=== PATIENT | male | born 1940 | race Caucasian/White ===

== ENCOUNTER 2020-12-01 08:20 | Inpatient (IN) ==
--- NOTE | 2020-11-15 16:14 | PAT Medication Instructions ---
Medication Instructions Date of Service November 15, 2020 Home Medications acetaminophen 500 mg capsule 500 - 1,000 mg PO BID aspirin 81 mg tablet,delayed release 81 mg PO QAM cetirizine 10 mg tablet (Zyrtec) 10 mg PO QAM cyanocobalamin (vitamin B-12) 2,000 mcg tablet 2,000 mcg PO QAM linagliptin 5 mg tablet (Tradjenta) 5 mg PO QAM metformin 500 mg tablet 500 mg PO BID multivitamin 1 tab PO QAM tramadol 50 mg tablet 50 mg PO BID PRN DO NOT take the morning of surgery cetirizine 10 mg tablet (Zyrtec) 10 mg PO QAM cyanocobalamin (vitamin B-12) 2,000 mcg tablet 2,000 mcg PO QAM linagliptin 5 mg tablet (Tradjenta) 5 mg PO QAM metformin 500 mg tablet 500 mg PO BID multivitamin 1 tab PO QAM Take morning of surgery With a small sip of water, OTHERWISE NOTHING TO EAT OR DRINK AFTER MIDNIGHT: acetaminophen 500 mg capsule 500 - 1,000 mg PO BID (okay to take up to 4 hours prior to surgery if needed) aspirin 81 mg tablet,delayed release 81 mg PO QAM tramadol 50 mg tablet 50 mg PO BID PRN (okay to take up to 4 hours prior to surgery if needed) Take evening before surgery acetaminophen 500 mg capsule 500 - 1,000 mg PO BID metformin 500 mg tablet 500 mg PO BID tramadol 50 mg tablet 50 mg PO BID PRN (if needed) Other Notes If you have any questions please call us at [phone] or [phone] or [phone] or [phone]
--- NOTE | 2020-11-17 12:10 | Anesthesiology Consultation ---
Date of Service November 17, 2020 Assessment & Plan (1) Encounter for pre-operative examination: Chart Review Chart Review: Acceptable Risk for Surgery (pending surgeon ordered PCP clearance (with response to creat and K), surgeon ordered cardio clearance and preop Covid testing results ) and Patient seen in Pre Admission Testing Awaiting surgeon ordered PCP clearance scheduled 11/28 (did send note to PCP regarding elevated K and creat) and awaiting surgeon ordered cardio clearance (will attempt to get more information/imaging on patient's aneurysms - Check BSG AM DOS Per PAT appt on 11/17/20, patient denies any recent travel or large group activities. No known Covid positive contacts or Covid related symptoms. No known Covid infection in the past 90 days. Pt is vaccinated for Covid. Preop Covid ha ting scheduled 11/29/20= will await results. Educated on importance of self quarantining, social distancing and wearing mask in public for the patient one week prior to surgery and after Covid testing done Teaching & Discussion Pre-Anesthesia Teaching/Discussion Notes: Instructed NPO after midnight before surgery,except medications with 15 cc of water. Medication instructions provided according to the PAT guidelines. History Surgery Operation Date: 12/01/20 07:45 Proposed Procedures p L2-L5 Posterior Fusion, Spinal Cord Monitoring - Bismark Castro, Height/Weight Height: 5 ft 9 in Weight: 87.7 kg Allergies Allergy/AdvReac Type Severity Reaction Status Date / Time No Known Allergies Allergy Verified 11/08/20 08:48 Medications Home Medications Medication Instructions Recorded Confirmed Last Taken acetaminophen 500 mg capsule 500 - 1,000 mg PO BID 11/08/20 11/08/20 Unknown aspirin 81 mg tablet,delayed 81 mg PO QAM 11/08/20 11/08/20 Unknown release cetirizine 10 mg tablet (Zyrtec) 10 mg PO QAM 11/08/20 11/08/20 Unknown cyanocobalamin (vitamin B-12) 2,000 mcg PO QAM 11/08/20 11/08/20 Unknown 2,000 mcg tablet linagliptin 5 mg tablet (Tradjenta) 5 mg PO QAM 11/08/20 11/08/20 Unknown metformin 500 mg tablet 500 mg PO BID 11/08/20 11/08/20 Unknown multivitamin 1 tab PO QAM 11/08/20 11/08/20 Unknown tramadol 50 mg tablet 50 mg PO BID PRN 11/08/20 11/08/20 Unknown Past Medical History Medical History Aneurysm "3 ANEURYSMS"- F/U DR HOSSEIN LEW ANNUALLY-NO CHANGES-PT NOT SURE AWARE OF LOCATIONS Chronic back pain Diabetes mellitus, type 2 Glucose stable Kidney stones HX Sleep apnea "SLEEPS SITTING UP"-DUE TO BACK ISSUES-QUIT USING HIS CPAP YRS AGO Exercise / Class Metabolic Activity II 4-5 Yardwork/Stairs/Walk up hill (one flight of stairs - no chest pain or SOB ) Past Family History Family History Brother Family history of diabetes mellitus Brother Family history of diabetes mellitus Mother Family hx of colon cancer Past Surgical History Surgical History History of colonoscopy History of cystoscopy WITH STENT FOR STONES History of total hip arthroplasty R/L Pilonidal cyst REMOVAL OF Past Anesthesia History No Hx of Anesthesia Complications and No Family Hx of Anesthesia Complications History of PONV No Hx of PONV and No Hx of Motion Sickness Social History Smoking Status: Never smoker Do You Dip or Chew Tobacco: No Hx Alcohol Use: No Hx Substance Use: No Review of Systems Patient denies chest pain, shortness of breath, dyspnea on exertion, reflux, cough, wheezing, palpitations. No hx of seizures, stroke, VA. No hx of blood clots or blood transfusions Physical Exam Vital Signs VITALS BP 136/77 P 65 TEMP 97.9 SP02 97% RESP 16 Constitutional no acute distress ENMT Mouth: no TMJ clicking Thyromental Distance: > or= 3.5 Finger Breadths (4.0) Mallampati Class: I Mouth / Teeth: 1. Missing molar Missing molars on top and bottom Crowns Neck neck extension not limited Respiratory normal respiratory effort; no respiratory distress Auscultation: lungs clear to auscultation bilaterally; no wheezes Cardiovascular Rate/Rhythm: regular rate and regular rhythm Heart Sounds: no murmur Vessels: no carotid bruit Musculoskeletal Spine: no pain with cervical ROM Extremities: extremities normal to inspection Psychiatric Orientation: alert Lab Results Anesthesia Preop Results Results Anesthesia Widget: WBC 4.18 K/uL (4.8-10.8) L 11/17/20 Hgb 13.5 g/dL (14.0-18.0) L 11/17/20 Hct 39.5 % (42-52) L 11/17/20 Plt 140 K/uL (130-400) 11/17/20 Na 137 mmol/L (136-145) 11/17/20 K 5.4 mmol/L (3.5-5.1) H 11/17/20 Cl 107 mmol/L (98-107) 11/17/20 CO2 26 mmol/L (21-32) 11/17/20 BUN 18 mg/dl (7-18) 11/17/20 Creat 1.56 mg/dl (0.6-1.4) H 11/17/20 Glucose Level 236 mg/dl (70-99) H 11/17/20 PT 10.9 Seconds (9.0-12.0) 11/17/20 PTT 28.3 Seconds (21.0-31.0) 11/17/20 INR 1.1 (0.9-1.1) 11/17/20 HA1c 8.0 % (4.5-5.6) H 11/17/20 Urine Color Yellow 11/17/20 Urine Appearance Clear (Clear) 11/17/20 Urine pH 5.0 (4.5-7.5) 11/17/20 Urine Specific [place] 1.021 (1.000-1.030) 11/17/20 Urine Protein Negative (Negative) 11/17/20 Urine Glucose (UA) 2+ (Negative) H 11/17/20 Urine Ketones Negative (Negative) 11/17/20 Urine Blood Negative (Negative) 11/17/20 Urine Nitrite Negative (Negative) 11/17/20 Urine Bilirubin Negative (Negative) 11/17/20 Urine Urobilinogen Negative (Negative) 11/17/20 Urine Leukocyte Esterase Negative (Negative) 11/17/20 Blood Type A Positive 11/17/20 Antibody Screen NEGATIVE 11/17/20 Lab Comments: Surgeon's office informed of elevated BSG and Hgb A1C Did write note to PCP regarding hyperkalemia and increased creatine Testing Electrocardiogram Date: 11/17/20 Sinus bradycardia with first-degree AV block with occasional PVCs at 59 bpm. Low voltage QRS Chest X-Ray Date: 11/17/20 Findings: + NAD
--- NOTE | 2020-11-29 16:09 | History & Physical Report ---
Date of Service November 29, 2020 Assessment & Plan (1) Neurogenic claudication due to lumbar spinal stenosis: Plan: Assessment lumbar spinal stenosis with spondylolisthesis and neurogenic claudication with progressive neuro deficit. Plan at this time patient exhibits severe lumbar spinal stenosis and instability. He is noting progressive deterioration in his ability to stand and ambulate with motor deficit. Subsequently we are recommending an urgent lumbar decompression and fusion L2-L5 to avoid permanent nerve damage. History of Present Illness Chief Complaint: Back pain with bilateral leg pain and weakness Primary Care Provider: Allen Mcrae This is a very pleasant 80-year-old male that a year ago was walking 5 miles a day and now is unable to walk down his driveway. He notes significant pain rating into the bilateral buttocks extending down his legs. Is associated with weakness and he must sit to obtain any relief. He has failed Stents of course of nonoperative care. Allergies Allergy/AdvReac Type Severity Reaction Status Date / Time No Known Allergies Allergy Verified 11/08/20 08:48 Home Medications Medication Instructions Recorded Confirmed Type acetaminophen 500 mg capsule 500 - 1,000 mg PO BID 11/08/20 11/08/20 History aspirin 81 mg tablet,delayed 81 mg PO QAM 11/08/20 11/08/20 History release cetirizine 10 mg tablet (Zyrtec) 10 mg PO QAM 11/08/20 11/08/20 History cyanocobalamin (vitamin B-12) 2,000 mcg PO QAM 11/08/20 11/08/20 History 2,000 mcg tablet linagliptin 5 mg tablet (Tradjenta) 5 mg PO QAM 11/08/20 11/08/20 History metformin 500 mg tablet 500 mg PO BID 11/08/20 11/08/20 History multivitamin 1 tab PO QAM 11/08/20 11/08/20 History tramadol 50 mg tablet 50 mg PO BID PRN 11/08/20 11/08/20 History Past Med/Surg History Medical History (Updated 11/29/20 @ 16:08 by Bismark Castro DO) Aneurysm "3 ANEURYSMS"- F/U DR HOSSEIN LEW ANNUALLY-NO CHANGES-PT NOT SURE AWARE OF LOCATIONS Per cardo records "AAA, 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" Chronic back pain Diabetes mellitus, type 2 Glucose stable Kidney stones HX Sleep apnea "SLEEPS SITTING UP"-DUE TO BACK ISSUES-QUIT USING HIS CPAP YRS AGO Surgical History History of colonoscopy History of cystoscopy WITH STENT FOR STONES History of total hip arthroplasty R/L Pilonidal cyst REMOVAL OF Family History Brother Family history of diabetes mellitus Brother Family history of diabetes mellitus Mother Family hx of colon cancer Social History (Updated 11/08/20 @ 09:13 by Zora Montes RN) Smoking Status: Never smoker Second Hand Exposure: Yes (PARENTS SMOKED); Hx Alcohol Use: No Hx Substance Use: No Preferred Language: Serbian Communication Ability: Effective Detector Car Operator Required: No Beliefs That Will Affect Care: None Current Living Situation: Spouse current occupational status: other 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 He must sit to obtain relief in his avoid the sensation of his legs giving way. He exhibits a 4+/5 bilateral quadriceps and dorsiflexion. Sensory is diminished bilateral extremities. Deep tendon reflexes absent.
[~2020-12-01 08:20] MED LIST: ACETAMINOPHEN 500 MG TAB PO SCH; CeleBREX 200 MG CAP PO SCH; GABAPENTIN 300 MG CAP PO SCH; LR 15ML/HR IV SCH; ceFAZolin 2000MG 2,000 MG/15 ML SYR IV SCH
[2020-12-01] MEDS ORDERED: LIDOCAINE 2% 2 ML VIAL/AMP(20MG/ML) INFIL ONE (08:24)
[2020-12-01] MEDS ORDERED: ONDANSETRON INJ 2 MG/ML 2 ML VIAL ONE (08:24)
[2020-12-01] MEDS ORDERED: PROPOFOL IV EMULSION 10 MG/ML 20 ML VIAL IV ONE (08:24)
[2020-12-01] MEDS ORDERED: NEOSTIGMINE METHYLSULFATE 1 MG/ML 10ML VIAL ONE (08:24)
[2020-12-01] MEDS ORDERED: MIDAZOLAM HCL 1 MG/ML 2ML VIAL ONE (08:24)
[2020-12-01] MEDS ORDERED: GLYCOPYRROLATE 0.2 MG/ML VIAL ONE (08:24)
[2020-12-01] MEDS ORDERED: fentaNYL citrate 100 MCG/2 ML VIAL ONE (08:24)
[2020-12-01] MEDS ORDERED: DEXAMETHASONE SOD INJ 4 MG/ML VIAL ONE (08:24)
--- NOTE | 2020-12-01 09:22 | History & Physical Bridge Note ---
Date of Service December 01, 2020 History & Physical Bridge Note I have examined the patient, reviewed the History & Physical and in the interval since the performance of the History & Physical I have noted the following changes of clinical significance: no changes noted
[2020-12-01 09:26] LABS: BUN Creatinine Ratio 10.1 (10-20); Creatinine Clr Calc Pharmacy 43.1 ml/min; Est GFR (African American) 51.6 ml/min; Est GFR (Non-African American) 44.5 ml/min; Potassium 4.1 mmol/L (3.5-5.1)
[2020-12-01] MEDS ORDERED: EPINEPHrine INJ 1 MG/ML AMP ONE (09:50)
[2020-12-01] MEDS ORDERED: BUPIVACAINE 0.5 % 5 MG/1 ML MPF 30ML VIAL ONE (09:51)
[2020-12-01] MEDS ORDERED: ATROPINE SULFATE 0.1 MG/ML 10ML SYR IV PRN (09:55)
[2020-12-01] MEDS ORDERED: HYDROmorphone INJ 1 MG/ML SYRINGE IV PRN ×2 (09:55→14:41)
[2020-12-01] MEDS ORDERED: ePHEDrine sulfate 50 MG/ML AMP IV PRN (09:55)
[2020-12-01] MEDS ORDERED: ONDANSETRON INJ 2 MG/ML 2 ML VIAL IV PRN ×2 (09:55→14:41)
[2020-12-01] MEDS ORDERED: fentaNYL citrate 100 MCG/2 ML VIAL IV PRN (09:55)
[2020-12-01] MEDS ORDERED: HYDROmorphone INJ 2 MG/ML SYR/VIAL ONE (10:29)
[2020-12-01] MEDS ORDERED: FLOSEAL HEMOSTATIC MATRIX 10ML TOP ONE (11:09)
--- NOTE | 2020-12-01 13:04 | Operative Report ---
Post Operative Report Pre & Post Diagnosis Operation Date: 12/01/20 09:55 Pre-Op Diagnosis: Spinal Stenosis, Lumbar Region with Neurogenic Claudication Post-Op Diagnosis: Spinal Stenosis, Lumbar Region with Neurogenic Claudication I identified the patient and participated in the time-out.: Yes Procedure Operation Date: 12/01/20 09:55 Actual Procedures #1 lumbar decompression with bilateral medial facetectomies and foraminotomies L1-2, L2-3, L3-4 and L4-5. #2 posterior spinal fusion L2-3, L3-4 and L4-5. #3 placement of posterior segmental instrumentation L2-L5. #4 interbody fusion L3- 4 and L4-5. #5 placement peek cage 12 x 26 mm at L3-L4 and 13 x 26 mm L4-5 per #6 placement locally harvested morselized autograft in the posterior gutters. #7 placement infuse collagen sponge, master graft in the posterior lateral gutters and I factor in the interbody space. Surgeon Bismark Castro, Oil Pumper Lester Machuca Estimated Blood Loss 250 Findings Consistent with Post-Op Diagnosis Specimens None Indications This is an 80 male who presents with severe spinal stenosis and marked inability to ambulate. Failing course of nonoperative care is here for surgical invention. Description of Procedure Patient was met with identified informed consent obtained. Patient was then taken to the operative suite underwent a patient placed in a prone position the Luis table Concepcion frame. All bony prominences well-padded eyes inspected to ensure no external proximal spine. This point lumbar spine was prepped and draped in a sterile fashion. Sharp dissection with the assistance of Bovie cautery performed down to and exposing the lamina and transverse processes of L3-L3 L4-L5 bilaterally. From caudal to cephalad fashion complete laminectomy of L4 L3 L2 and partial laminectomy L1 was performed including bilateral medial facetectomies and foraminotomies addressing severe spinal stenosis. Pedicle screws were then placed in L2 L3-L4-L5 bilaterally with assistance of fluoroscopy and the proper sized clint placed. By way of a transfemoral approach on the right complete discectomy of L4-5 was performed endplates curetted to subcortically bone and a 12 x 26 mm peek cage filled with I factor tapped in position. Then proceeded to L3-L4 and again by way of a transforaminal portion right a complete discectomy was performed endplates curetted to subcortically bone and a 11 x 26 mm peek cage filled I factor tapped in position. The rods were then locked in final position bilaterally. The transverse processes of L 2 L3-L4-L5 5 burred to subcortically bone. Infuse collagen sponge master graft local autograft was placed in the posterior gutters. 15 round WILDA drain inserted. The incision was then closed with 1 Vicryl to fascia 2-0 Vicryl subcutaneously and 4 Monocryl for final skin closure. Steri-Strip sterile dressings placed. Patient awakened taken back in stable condition. Please note spinal cord monitoring to assess the procedure no changes noted. Lastly Lester Machuca was present throughout the entire procedure and all the patient positioning complex portions of the procedure and final skin closure. I attest to the content of the Intraoperative Record and any orders documented therein. Any exceptions are noted below.
--- NOTE | 2020-12-01 13:26 | Fluoroscopy Report ---
FL lumbar spine 2-3V CLINICAL HISTORY: L2-L5 DECOMPRESSION AND FUSION COMPARISON STUDY: Lumbar spine MRI September 13, 2020. FLUOROSCOPY TIME: 28 seconds. FLUOROSCOPIC IMAGES: 3 FINDINGS: Fluoroscopy was provided during L3-L4 and L4-L5 discectomies with interbody spacer placemen t. Posterior decompression with bilateral pedicle screws from L2 through L5 are noted. There are inte rconnecting rods. Hardware is intact. Mild levoscoliosis of the lumbar spine is noted. This was shown on previous MRI. IMPRESSION: Fluoroscopy provided during L3-L4 and L4-L5 discectomies with L2-L5 posterior decompress ion and bilateral pedicle screw fusion. ACT 112: Negative or not required by law. Electronically signed by: Sebastian Hilliard M.D. 12/01/2020 1:24 PM
[2020-12-01] MEDS ORDERED: diphenhydrAMINE Capsule 25 MG CAP PO PRN (14:41)
[2020-12-01] MEDS ORDERED: METOCLOPRAMIDE HCL INJ 5 MG/ML 2 ML VIAL IV PRN (14:41)
[2020-12-01] MEDS ORDERED: ALUMINUM/MAGNESIUM SUSP 30 ML UDC PO PRN (14:41)
[2020-12-01] MEDS ORDERED: ACETAMINOPHEN 1,000 MG/100 ML VIAL IV PRN (14:41)
[2020-12-01] MEDS ORDERED: DO NOT ADMINISTER PNEUMOCOCCAL VACCINE PRN (14:41)
[2020-12-01] MEDS ORDERED: LORazepam 0.5 MG/1 ML VIAL IV PRN (14:41)
[2020-12-01] MEDS ORDERED: hydrOXYzine HCl 25 MG TAB PO PRN (14:41)
[2020-12-01] MEDS ORDERED: PROMETHAZINE HCL 12.5 MG in SODIUM CHLORIDE 0.9% 50 ML IV PRN (14:41)
[2020-12-01] MEDS ORDERED: NALOXONE HCL 0.4 MG/1 ML VIAL/CARP IV PRN (14:41)
[2020-12-01] MEDS ORDERED: bisacodyL 10 MG SUPP PR PRN (14:41)
[2020-12-01] MEDS ORDERED: LORazepam 0.5 MG TAB PO PRN (14:41)
[2020-12-01] MEDS ORDERED: PHARMACY GLYCEMIC MGMT CONSULT PRN (14:41)
[2020-12-01] MEDS ORDERED: DO NOT ADMINISTER FLU VACCINE PRN (14:41)
[2020-12-01] MEDS ORDERED: MAGNESIUM HYDROXIDE SUSP 30 ML UDC PO PRN (14:41)
[2020-12-01] MEDS ORDERED: FAMOTIDINE 20 MG TAB PO PRN (14:41)
[2020-12-01] MEDS ORDERED: SOD PHOSPHATE/SOD BIPHOSPHATE ENEMA 132 ML BTL PR PRN (14:41)
[2020-12-01] MEDS ORDERED: ONDANSETRON 4 MG OD TAB PO PRN (14:41)
[2020-12-01] MEDS ORDERED: HYDROmorphone INJ 0.5 MG/0.5 ML SYR IV PRN (14:41)
[2020-12-01] MEDS: SODIUM CHLORIDE 0.9% 1000ML 1,000 ML IV SCH (15:09)
--- NOTE | 2020-12-01 15:14 | Anesthesiology Progress Note ---
Date of Service December 01, 2020 Anesthesia Post Procedure Vital Signs Vital Signs: Temp Pulse Pulse Resp BP Pulse Ox 12/01/20 14:35 74 16 116/56 L 95 12/01/20 14:25 36.4 C L 78 18 128/78 95 12/01/20 14:15 73 14 117/67 94 12/01/20 14:05 83 12 130/66 96 12/01/20 13:55 83 12 108/77 95 12/01/20 13:45 88 17 127/80 99 12/01/20 13:35 91 H 12 129/74 97 12/01/20 13:28 36.2 C L 96 H 19 122/71 98 12/01/20 09:06 36.9 C 62 16 160/88 H 98 Pain Intensity Right Leg: Pain Intensity: 6 Back: Pain Intensity: 5 Transfer of Care Handoff Completed per policy Notes Mental Status: alert / awake / arousable and participated in evaluation Patient Amnestic to Procedure: Yes Nausea / Vomiting: adequately controlled Pain: adequately controlled Airway Patency, RR, SpO2: stable & adequate BP & HR: stable & adequate Hydration State: stable & adequate Anesthetic Complications: no major complications apparent and Pt Satisfied with anesthetic care
[2020-12-01] MEDS ORDERED: DEXTROSE 50% 50 ML SYRINGE IV PRN (16:15)
[2020-12-01] MEDS ORDERED: GLUCAGON FOR INJ 1 MG VIAL IM PRN (16:15)
[2020-12-01] MEDS ORDERED: GLUCOSE 40% GEL 15 GM TUBE PO PRN (16:15)
[2020-12-01] MEDS ORDERED: CARBOHYDRATES FOR HYPOGLYCEMIA PO PRN (16:15)
[2020-12-01] MEDS ORDERED: GLUCOSE 10 TABS/TUBE PO PRN (16:15)
[2020-12-01] MEDS ORDERED: INSULIN GLARGINE SOLOSTAR 100 UNITS/ML 3 ML PEN SC ONE (16:15)
--- NOTE | 2020-12-01 16:15 | Hospitalist Consultation ---
Date of Consultation December 01, 2020 Assessment & Plan (1) Neurogenic claudication due to lumbar spinal stenosis: - POD#0 L2-L5 decompression and fusion by Dr. Castro - activity and wound care orders as per ortho - pain control with bowel regimen - PT/OT - monitor H/H for acute blood loss anemia and transfuse blood products PRN - EBL 250 cc (2) Diabetes mellitus, type 2: -Hgb A1c 8.0 11/2020 -Hold oral agents while hospitalized -Glycemic pharmacy consulted by spine Ortho (3) DVT prophylaxis: -TEDs/SCDs as per spine Ortho Thank you for this consultation. We will follow the patient with you during their hospital stay. You can reach a member of the [facility] Hospitalist Team 07/10 via the [facility] Hospitalist role in [employer]. Supervising Physician Co-Signing Physician Notes Attending Addendum: delayed entry date of service noted above care coordinated with MARY Ivory please refer to her notes for full details, I agree with her notes patient seen and examined, records reviewed by myself as well on exam, patient seen resting in bed, comfortable states he feels fine overall minimal discomfort over surgical site no chest pain, dyspnea, palpitations, dizziness no other symptoms VS noted and reviewed oriented x 3, not in distress, speaks in sentences with no effort nor accessory muscle use normal rate, regular rhythm, no murmurs clear breath sounds bilaterally non distended, soft, nontender back- heavy dressing in place, no bleeding/discharge no bipedal edema, erythema, warmth no neuro deficits Na 136 Crea 1.4 ASSESSMENT AND PLAN Post Op Lumbar Spine Surgery - stable overall - monitor Hg DM 2 - ISS Pharmacy Glycemic consult other diagnoses and plan of care as per CNRP Lety Ivory's notes Chandana Soto MD History of Present Illness Reason for Consultation: Postop medical management Requesting Physician: Dr. Castro Attending Physician: Dr. Soto History of Present Illness 80-year-old male with PMH DM type II, AAA, iliac artery aneurysm, and other problems as below who is s/p L2-L5 decompression and fusion today by Dr. Castro. Postoperatively, the patient is doing well. He reports his pain is well controlled. He reports some numbness to both feet, left greater than right. No weakness. Denies chest pain or shortness of breath. No lightheadedness or dizziness. Denies abdominal pain or nausea. Meyer is in place draining clear yellow urine. Allergies Allergy/AdvReac Type Severity Reaction Status Date / Time No Known Allergies Allergy Verified 12/01/20 08:50 Home Medications Medication Instructions Recorded Confirmed Type acetaminophen 500 mg capsule 500 - 1,000 mg PO BID 11/08/20 12/01/20 History aspirin 81 mg tablet,delayed 81 mg PO QAM 11/08/20 12/01/20 History release cetirizine 10 mg tablet (Zyrtec) 10 mg PO QAM 11/08/20 12/01/20 History cyanocobalamin (vitamin B-12) 2,000 mcg PO QAM 11/08/20 12/01/20 History 2,000 mcg tablet linagliptin 5 mg tablet (Tradjenta) 5 mg PO QAM 11/08/20 12/01/20 History metformin 500 mg tablet 500 mg PO BID 11/08/20 12/01/20 History multivitamin 1 tab PO QAM 11/08/20 12/01/20 History tramadol 50 mg tablet 50 mg PO BID PRN 11/08/20 12/01/20 History oxycodone 5 mg tablet 5 mg PO Q6H PRN #30 tab 12/02/20 Rx tramadol 50 mg tablet 50 mg PO Q6H PRN #30 tab 12/02/20 Rx tamsulosin 0.4 mg capsule (Flomax) 0.4 mg PO DAILY #30 cap 12/11/20 12/11/20 Rx Patient History Medical History (Updated 12/11/20 @ 14:28 by Marcia Singh) Aneurysm "3 ANEURYSMS"- F/U DR HOSSEIN LEW ANNUALLY-NO CHANGES-PT NOT SURE AWARE OF LOCATIONS Per cardo records "AAA, 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" Chronic back pain CKD stage 3 due to type 2 diabetes mellitus Diabetes mellitus, type 2 Glucose stable First degree AV block Kidney stones HX Sleep apnea "SLEEPS SITTING UP"-DUE TO BACK ISSUES-QUIT USING HIS CPAP YRS AGO Spinal stenosis Spondylolisthesis Vitamin B12 deficiency Vitamin D deficiency Surgical History (Updated 12/11/20 @ 14:31 by Marcia Singh) History of cataract surgery History of colonoscopy History of cystoscopy WITH STENT FOR STONES History of surgical removal of pilonidal cyst History of total hip arthroplasty R/L Family History (Updated 12/11/20 @ 14:30 by Marcia Singh) Brother Family history of diabetes mellitus Diabetes Blood disorder Brother Family history of diabetes mellitus Colorectal cancer Diabetes Mother Family hx of colon cancer Colorectal cancer Father Heart disease Sister Coronary heart disease COPD (chronic obstructive pulmonary disease) Social History Smoking Status: Never smoker Second Hand Exposure: Yes (PARENTS SMOKED); Hx Alcohol Use: No Hx Substance Use: No Preferred Language: Iraqi Communication Ability: Effective Trading Analyst Required: No Beliefs That Will Affect Care: None marital status: Current Living Situation: Spouse current occupational status: other 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 Feels Safe at Home: Yes Assistive Devices: Walker Review of Systems Review of Systems: ROS per HPI, all other systems reviewed and negative Physical Exam Constitutional: WD/WN, vitals as above Eyes: PERRL, conjunctivae normal, anicteric sclerae ENMT: external ear and nose normal, oropharynx normal Respiratory: normal respiratory effort, lungs clear to auscultation Cardiovascular: Rate/Rhythm: regular rate and regular rhythm Vessels: normal peripheral pulses Extremities: no edema Gastrointestinal (Abdomen): normal bowel sounds, soft, nontender, no hepatosplenomegaly Musculoskeletal: no cyanosis or clubbing, extremities motor strength 5/5 S/p back surgery, drain in place draining bloody drainage, pedal pushes and pulls strong bilaterally Skin: no rashes, warm and dry Neurologic: PERRL, EOMI, accommodation nl, no face palsy, no dysarthria Psychiatric: A+Ox3, euthymic affect Results & Data Results & Data ([facility]) Vital Signs (Past 12 Hours) Vital Signs Temp Pulse Pulse Resp BP Pulse Ox 12/01/20 15:15 63 16 98/65 L 91 12/01/20 14:35 74 16 116/56 L 95 12/01/20 14:25 36.4 C L 78 18 128/78 95 12/01/20 14:15 73 14 117/67 94 12/01/20 14:05 83 12 130/66 96 12/01/20 13:55 83 12 108/77 95 12/01/20 13:45 88 17 127/80 99 12/01/20 13:35 91 H 12 129/74 97 12/01/20 13:28 36.2 C L 96 H 19 122/71 98 12/01/20 09:06 36.9 C 62 16 160/88 H 98 Laboratory Results [facility] 12/01/20 08:52 Sodium 136 Potassium 4.1 Chloride 107 Carbon Dioxide 22 BUN 15 Creatinine 1.45 H Glucose 206 H Calcium 9.0
[2020-12-01] MEDS: ceFAZolin 2000MG 2,000 MG/15 ML SYR IV SCH (17:39)
[2020-12-01] MEDS: INSULIN ASPART 100 UNITS/ML 3 ML PEN SC SCH ×2 (17:41→20:38)
[2020-12-01] MEDS: DOCUSATE SODIUM/SENNA 50/8.6MG TAB PO SCH (20:38)
[2020-12-02] MEDS: INSULIN ASPART 100 UNITS/ML 3 ML PEN SC SCH ×6 (00:15→21:11)
[2020-12-02] MEDS: SODIUM CHLORIDE 0.9% 1000ML 1,000 ML IV SCH ×2 (00:17→10:49)
[2020-12-02] MEDS: ceFAZolin 2000MG 2,000 MG/15 ML SYR IV SCH (01:17)
[2020-12-02] MEDS: ACETAMINOPHEN 500 MG TAB PO PRN (05:40)
[2020-12-02] MEDS: POLYETHYLENE (MIRALAX) 17 GM PACK PO SCH ×4 (05:40→23:56)
[2020-12-02 05:58] LABS: Basophils # (auto) 0.01 K/uL (0-0.2); Basophils % (auto) 0.1 %; Eosinophils # (auto) 0.01 K/uL (0-0.5); Eosinophils % (auto) 0.1 %; Hematocrit (blood only) 31.8 % (42-52); Hemoglobin 10.7 g/dL (14.0-18.0); Immature Granulocytes # (auto) 0.04 K/uL (0.00-0.02); Immature Granulocytes % (auto) 0.3 %; Lymphocytes # (auto) 0.87 K/uL (1.2-3.4); Lymphocytes % (auto) 7.5 %; Mean Corpuscular Hemoglobin 30.1 pg (25-34); Mean Corpuscular Hgb Conc 33.6 g/dL (32-36); Mean Corpuscular Volume 89.6 fL (80-100); Mean Platelet Volume 10.4 fL (7.4-10.4); Monocytes # (auto) 0.88 K/uL (0.11-0.59); Monocytes % (auto) 7.5 %; Neutrophils # (auto) 9.86 K/uL (1.4-6.5); Neutrophils % (auto) 84.5 %; Platelet Count 134 K/uL (130-400); RDW Coefficient of Variation 13.4 % (11.5-14.5); RDW Standard Deviation 44.6 fL (36.4-46.3); Red Blood Count 3.55 M/uL (4.7-6.1); White Blood Count 11.67 K/uL (4.8-10.8)
[2020-12-02 06:24] LABS: BUN Creatinine Ratio 10.2 (10-20); Creatinine Clr Calc Pharmacy 41.1 ml/min; Est GFR (African American) 48.8 ml/min; Est GFR (Non-African American) 42.1 ml/min; Potassium 4.3 mmol/L (3.5-5.1)
[2020-12-02] MEDS: oxyCODONE HCL IR 5 MG TAB (IMMEDIATE RELEASE) PO PRN ×3 (07:43→18:16)
[2020-12-02] MEDS: ASPIRIN 81 MG ECTAB PO SCH (08:17)
[2020-12-02] MEDS: CETIRIZINE HCL 10 MG TABLET PO SCH (08:17)
[2020-12-02] MEDS: MULTIVITAMIN TAB PO SCH (08:18)
[2020-12-02] MEDS ORDERED: INSULIN GLARGINE SOLOSTAR 100 UNITS/ML 3 ML PEN SC ONE (09:00)
--- NOTE | 2020-12-02 09:38 | Pharmacy Report ---
Pharmacy Glycemic Short Note 2 - Date of Service December 02, 2020 - Glycemic Short BSG Results (Last 24 hours): 12/01/20 12/01/20 12/01/20 14:34 16:55 20:29 Glucose POC Glucose 276 H 282 H 244 H 12/01/20 12/02/20 12/02/20 23:56 03:42 05:19 Glucose 178 H POC Glucose 186 H 173 H 12/02/20 08:14 Glucose POC Glucose 156 H OUTPATIENT ANTIDIABETIC REGIMEN: * Tradjenta 5mg PO QAM * Metformin 500mg PO BIDM * A1c = 8% on 11/17/20 ASSESSMENT: * 80yo T2DM male with near adequate outpatient control per recent A1c * Pt with hyperglycemia POD#0 secondary to holding oral agents prior to surgery and dexamethasone given in OR * Started patient on weight based SQ basal bolus insulin regimen for insulin naive patient yesterday. BSGs trending downwards nicely. Will continue to titrate based on BSG trends to maintain BSG <180 mg/dl (ideally <150 mg/dl) to prevent post-op infectious complications. PLAN FOR INPATIENT GLYCEMIC CONTROL: * Hold outpatient oral diabetes medications * Basal insulin * Lantus 15 units SQ daily * Bolus insulin * NovoLog per scale ACHS or Q6hrs while NPO * Goal Range: Low 110 mg/dL - High 140 mg/dL * Correction Factor: 25 mg/dL/unit * Nutritional / Prandial insulin per carb ratio of 1 unit per 9 grams CHO consumed
--- NOTE | 2020-12-02 09:58 | Orthopedic Progress Note ---
Date of Service December 02, 2020 Assessment & Plan (1) Neurogenic claudication due to lumbar spinal stenosis: Plan: This time continue physical therapy monitor his WILDA output hopefully discharge home in next few days. Admission and Anticipated Discharge Date Admission Date: December 01, 2020 Subjective Back pain can her leg pain markedly improved Physical Exam Physical Exam: Patient is in the chair at the bedside there is good strength testing. There is comfortable. Results & Data ([facility] [place]) Vital Signs (Past 12 Hours) Vital Signs Temp Pulse Pulse Resp BP Pulse Ox 12/02/20 08:55 74 116/73 12/02/20 06:22 36.6 C 73 18 101/64 96 12/02/20 02:21 36.5 C 78 18 94/58 L 94 12/02/20 01:27 87 97/60 L 12/01/20 22:05 36.3 C L 86 16 94/59 L 95
[2020-12-02] MEDS: traMADol HCL 50 MG TABLET PO PRN ×2 (16:15→21:28)
--- NOTE | 2020-12-02 17:43 | Hospitalist Progress Note ---
Date of Service December 02, 2020 Assessment & Plan (1) Neurogenic claudication due to lumbar spinal stenosis: Plan: - POD#1 L2-L5 decompression and fusion by Dr. Castro - Hg 10.7 transfuse PRN for Hg < 7 - otherwise stable overall (2) Diabetes mellitus, type 2: Plan: -Hgb A1c 8.0 11/2020 -Hold oral agents while hospitalized -Glycemic pharmacy consulted by spine Ortho - BSGs within acceptable range (3) DVT prophylaxis: Plan: -TEDs/SCDs as per spine Ortho Thank you for this consultation. We will follow the patient with you during their hospital stay. You can reach a member of the [facility] Hospitalist Team 07/10 via the [facility] in [place] Text. Admission and Anticipated Discharge Date Admission Date: December 01, 2020 Subjective ff up for post op state, DM etc seen resting in chair, in good spirits states he feels fine overall back pain is better able to ambulate with no problems no chest pain, dyspnea, palpitations, dizziness no other symptoms Review of Systems Review of Systems: all noted and negative except for above Physical Exam Physical Exam: General- oriented x 3, not in distress, speaks in sentences with no effort or accessory muscle use Eyes- anicteric Neck- no JVD Lungs- clear breath sounds bilaterally, no rales/wheezes Heart- normal rate, regular rhythm; no murmurs Abdomen- normal bowel sounds, nondistended, soft, nontender Extremities- no pretibial edema, no calf tenderness Back- dressing in place- no bleeding or discharge drain in place with minimal sanguinous discharge Neuro- alert, oriented x 3; no gross focal neurologic deficits Skin- warm & dry Results & Data Results & Data ([facility]) Vital Signs (Past 12 Hours) Vital Signs Temp Pulse Pulse Resp BP Pulse Ox 12/02/20 17:32 37.2 C 92 H 121/70 93 12/02/20 15:02 36.7 C 71 16 114/70 98 12/02/20 12:09 95 12/02/20 08:55 74 116/73 12/02/20 06:22 36.6 C 73 18 101/64 96 all noted and reviewed including below
[2020-12-02] MEDS: DOCUSATE SODIUM/SENNA 50/8.6MG TAB PO SCH (21:11)
[2020-12-03] MEDS: POLYETHYLENE (MIRALAX) 17 GM PACK PO SCH ×4 (05:43→23:09)
--- NOTE | 2020-12-03 08:16 | Orthopedic Progress Note ---
Date of Service December 03, 2020 Assessment & Plan (1) Neurogenic claudication due to lumbar spinal stenosis: Plan: Patient is postoperative day 2 multilevel lumbar decompression and fusion by Dr. Castro. He had urinary retention last evening which resulted in subsequent Meyer catheter placement. Today we will continue with pain control. DVT prophylaxis is in the form of teds and SCDs. Continue with physical therapy. Anticipate discharge home within the next 24 to 48 hours. Admission and Anticipated Discharge Date Admission Date: December 01, 2020 Supervising Physician Co-Signing Physician Notes Dr. Bismark Castro Subjective Patient is postoperative day 2 posterior lumbar decompression instrumented fusion L2-[address] Castro. Overnight he has had urinary retention which required straight catheterization x2 and subsequent Meyer insertion. It is dra cadena. He notes complaints of lower back pain this morning. No radicular leg pain. WILDA drain output last shift is 100 cc. Yesterday in physical therapy ambling roughly 600 feet. No other complaints. Review of Systems Review of Systems: All systems reviewed & are unremarkable except as noted in HPI & below Physical Exam Physical Exam: He is lying in bed Alert and oriented x3 No acute distress Lumbar dressing is clean dry and intact WILDA drain intact and functioning Meyer intact and draining Calves are soft nontender bilateral lower extremities Strength is intact 5/5 bilateral lower extremities Results & Data ([facility]) Vital Signs (Past 12 Hours) Vital Signs Temp Pulse Pulse Resp BP Pulse Ox 12/03/20 07:29 37.2 C 90 18 117/72 95 12/02/20 23:57 94 H 16 128/74 93 12/02/20 22:14 37.0 C 99 H 16 126/65 92
[2020-12-03] MEDS ORDERED: INSULIN GLARGINE SOLOSTAR 100 UNITS/ML 3 ML PEN SC SCH (09:00)
[2020-12-03] MEDS: INSULIN ASPART 100 UNITS/ML 3 ML PEN SC SCH ×4 (09:36→21:07)
[2020-12-03] MEDS: ASPIRIN 81 MG ECTAB PO SCH (09:38)
[2020-12-03] MEDS: dexAMETHasone 8 MG in SYRINGE 0 ML IV SCH (09:39)
[2020-12-03] MEDS: MULTIVITAMIN TAB PO SCH (09:39)
[2020-12-03] MEDS: CETIRIZINE HCL 10 MG TABLET PO SCH (09:39)
--- NOTE | 2020-12-03 11:40 | Pharmacy Report ---
Pharmacy Glycemic Short Note 2 - Date of Service December 03, 2020 - Glycemic Short BSG Results (Last 24 hours): 12/02/20 12/02/20 12/02/20 12:19 17:26 20:54 POC Glucose 167 H 191 H 187 H 12/02/20 12/03/20 22:17 08:19 POC Glucose 190 H 222 H OUTPATIENT ANTIDIABETIC REGIMEN: * Tradjenta 5mg PO QAM * Metformin 500mg PO BIDM * A1c = 8% on 11/17/20 ASSESSMENT: 12/03 * Pt has received 44 units of insulin over the past 24hrs * 15 units of basal with Lantus * 29 units of bolus with NovoLog * BSGs all above goal range with current orders. Will increase basal insulin and tighten CF/CR. * Goal is to maintain BSG <180 mg/dl (ideally <150 mg/dl) to prevent post-op infectious complications. 12/02 * 80yo T2DM male with near adequate outpatient control per recent A1c * Pt with hyperglycemia POD#0 secondary to holding oral agents prior to surgery and dexamethasone given in OR * Started patient on weight based SQ basal bolus insulin regimen for insulin naive patient yesterday. BSGs trending downwards nicely. Will continue to titrate based on BSG trends to maintain BSG <180 mg/dl (ideally <150 mg/dl) to prevent post-op infectious complications. PLAN FOR INPATIENT GLYCEMIC CONTROL: * Hold outpatient oral diabetes medications * Basal insulin * Lantus 22 units SQ daily * Bolus insulin * NovoLog per scale ACHS or Q6hrs while NPO * Goal Range: Low 110 mg/dL - High 140 mg/dL * Correction Factor: 20 mg/dL/unit * Nutritional / Prandial insulin per carb ratio of 1 unit per 8 grams CHO consumed
[2020-12-03 11:41] LABS: Basophils # (auto) 0.01 K/uL (0-0.2); Basophils % (auto) 0.1 %; Eosinophils # (auto) 0.02 K/uL (0-0.5); Eosinophils % (auto) 0.2 %; Hematocrit (blood only) 31.5 % (42-52); Hemoglobin 10.4 g/dL (14.0-18.0); Immature Granulocytes # (auto) 0.03 K/uL (0.00-0.02); Immature Granulocytes % (auto) 0.3 %; Lymphocytes # (auto) 0.49 K/uL (1.2-3.4); Lymphocytes % (auto) 5.1 %; Mean Corpuscular Hemoglobin 30.1 pg (25-34); Mean Corpuscular Volume 91.3 fL (80-100); Mean Platelet Volume 10.1 fL (7.4-10.4); Monocytes # (auto) 0.56 K/uL (0.11-0.59); Monocytes % (auto) 5.8 %; Neutrophils # (auto) 8.47 K/uL (1.4-6.5); Neutrophils % (auto) 88.5 %; Platelet Count 105 K/uL (130-400); RDW Coefficient of Variation 13.7 % (11.5-14.5); RDW Standard Deviation 45.4 fL (36.4-46.3); Red Blood Count 3.45 M/uL (4.7-6.1); White Blood Count 9.58 K/uL (4.8-10.8)
[2020-12-03 12:02] LABS: BUN Creatinine Ratio 11.7 (10-20); Calcium 8.1 mg/dl (8.5-10.1); Creatinine Clr Calc Pharmacy 35.9 ml/min; Est GFR (African American) 41.4 ml/min; Est GFR (Non-African American) 35.7 ml/min; Potassium 4.7 mmol/L (3.5-5.1)
[2020-12-03] MEDS ORDERED: INSULIN GLARGINE SOLOSTAR 100 UNITS/ML 3 ML PEN SC ONE (12:15)
[2020-12-03] MEDS: ACETAMINOPHEN 500 MG TAB PO PRN (13:00)
[2020-12-03] MEDS: SODIUM CHLORIDE 0.9% 1000ML 1,000 ML IV SCH (17:48)
--- NOTE | 2020-12-03 18:06 | Hospitalist Progress Note ---
Date of Service December 03, 2020 Assessment & Plan (1) Neurogenic claudication due to lumbar spinal stenosis: Plan: - POD#1 L2-L5 decompression and fusion by Dr. Castro - Hg 10.4 transfuse PRN for Hg < 7 - Stable at 10 - otherwise stable overall (2) Diabetes mellitus, type 2: Plan: - hg A1c 8.0 11/2020 - Hold oral agents while hospitalized - Glycemic pharmacy consulted by spine Ortho - BSGs elevated secondary to glucocorticoids Continue insulin Lantus and aspart Monitor closely (3) Acute urinary retention: Plan: No history of urinary problems Likely related to recent surgery, narcotics Meyer catheter in place Trial of voiding in 1 to 2 days (4) DVT prophylaxis: Plan: -TEDs/SCDs as per spine Ortho Thank you for this consultation. We will follow the patient with you during their hospital stay. You can reach a member of the [facility] Hospitalist Team 07/10 via the [place] Hospitalist role in [place] Text. Admission and Anticipated Discharge Date Admission Date: December 01, 2020 Subjective Follow-up status post lumbar spine surgery, etc. Had urinary retention overnight Meyer catheter inserted Seen sitting up in bed, comfortable, not in distress In good spirits States he feels fine overall Pain is much better Denies urinary symptoms prior to admission No other symptoms Review of Systems Review of Systems: all noted and negative except for above Physical Exam Physical Exam: General- oriented x 3, not in distress, speaks in sentences with no effort or accessory muscle use Eyes- anicteric Neck- no JVD Lungs- clear breath sounds, no crackles, no rales, no wheezing appreciated Heart- normal rate, regular rhythm; no murmurs Abdomen- normal bowel sounds, nondistended, soft, nontender Lower back-dressing in place, no bleeding or discharge Drain in place-serosanguineous fluid minimal Extremities- no pretibial edema, no calf tenderness Neuro- alert, oriented x 3; no gross focal neurologic deficits Skin- warm & dry Results & Data Results & Data ([facility]) Vital Signs (Past 12 Hours) Vital Signs Temp Pulse Resp BP Pulse Ox 12/03/20 16:03 36.7 C 73 16 134/73 96 12/03/20 07:29 37.2 C 90 18 117/72 95 all noted and reviewed including below
[2020-12-03] MEDS: DOCUSATE SODIUM/SENNA 50/8.6MG TAB PO SCH (21:06)
[2020-12-04] MEDS: POLYETHYLENE (MIRALAX) 17 GM PACK PO SCH ×2 (05:00→12:39)
[2020-12-04] MEDS: SODIUM CHLORIDE 0.9% 1000ML 1,000 ML IV SCH (05:01)
[2020-12-04 06:36] LABS: BUN Creatinine Ratio 16.7 (10-20); Calcium 8.2 mg/dl (8.5-10.1); Creatinine Clr Calc Pharmacy 40.8 ml/min; Est GFR (African American) 48.4 ml/min; Est GFR (Non-African American) 41.7 ml/min; Potassium 3.8 mmol/L (3.5-5.1)
[2020-12-04] MEDS ORDERED: INSULIN GLARGINE SOLOSTAR 100 UNITS/ML 3 ML PEN SC SCH (09:00)
--- NOTE | 2020-12-04 09:18 | Hospitalist Progress Note ---
Date of Service December 04, 2020 Assessment & Plan (1) Neurogenic claudication due to lumbar spinal stenosis: Plan: POD#3 L2-L5 decompression and fusion by Dr. Castro EBL: 250ml tolerated procedure well Pain/wound management per orthopedics Encourage incentive spirometry Activity and therapy as prescribed orthopedics No bowel movement/minimal flatus on MiraLAX every 6 hours and senna S - 2 tabs at bedtime, continue and monitor Hemoglobin 10.4, preop 13.5 Acute blood loss anemia, postoperatively Preop hemoglobin 13.5 Postoperatively 10.4 Continue to monitor Transfuse if hemoglobin less than 7 or otherwise symptomatic (2) Diabetes mellitus, type 2: Plan: hg A1c 8.0 11/2020 Hold oral agents while hospitalized Glycemic pharmacy consulted by spine Ortho BSGs elevated secondary to glucocorticoids Continue insulin Lantus and aspart Monitor closely (3) Acute urinary retention: Plan: No history of urinary problems Likely related to recent surgery, narcotics [place] catheter in place F/U with urology in place (4) DVT prophylaxis: Plan: TEDs/SCDs as per spine Ortho Dispo: Pt to be d/c to home today; follows up in place with urology 2/2 to [place] cath Thank you for this consultation. We will follow the patient with you during their hospital stay. You can reach a member of the [facility] Hospitalist Team 07/10 via the [facility] role in [place] Text. Admission and Anticipated Discharge Date Admission Date: December 01, 2020 Supervising Physician Co-Signing Physician Notes I have seen and examined the patient and have discussed the case with the provider above. I agree with the assessment and plan as stated. DO Andres Neves Patient was seen and examined in room 306. Follow-up lumbar decompression fusion by Dr. Castro. Feels he is not doing well this morning. He complains of 10 out of 10 aching low back incisional pain. He denies any radicular symptoms including numbness or tingling. He denies any fever, chills, sweats, lightheadedness, dizziness, chest pain, shortness of breath, cough, nausea, vomiting, abdominal pain. He is tolerating his diet. Review of Systems Review of Systems: All systems reviewed & are unremarkable except as noted in HPI & below Physical Exam Physical Exam: Gen: WD/WN, male, sitting up at bedside eating breakfast, NAD, A&O x3 HEENT: Normocephalic, atraumatic, conjunctivae moist, sclerae anicteric, mucous membranes moist. Lung: Clear to Auscultation bilaterally, no wheezes/rales/rhonchi Heart: Regular rate, regular rhythm, no murmurs, rubs, or gallops Abdomen: Soft, NT, ND +BS x 4 Extremities: No edema, Skin: Warm, no rash, negative turgor. MSK: Lumbar dressing CDI, WILDA drain with serosanguineous drainage : Clear yellow urine draining Results & Data Results & Data ([facility]) Vital Signs (Past 12 Hours) Vital Signs Temp Pulse Resp BP Pulse Ox 12/04/20 07:22 36.8 C 75 18 135/67 95 12/04/20 02:00 36.6 C 77 15 131/67 95 12/03/20 22:55 36.6 C 72 18 113/64 97 Laboratory Results Short CBC 12/01/20 12/02/20 12/03/20 Range/Units 08:52 05:19 11:01 WBC 9.58 (4.8-10.8) K/uL Hgb 10.4 L (14.0-18.0) g/dL Hct 31.5 L (42-52) % Plt Count 105 L (130-400) K/uL Sodium 136 137 (136-145) mmol/L Potassium 4.1 4.3 (3.5-5.1) mmol/L Creatinine 1.45 H 1.52 H (0.6-1.4) mg/dl 12/03/20 12/04/20 Range/Units 11:01 05:20 WBC (4.8-10.8) K/uL Hgb (14.0-18.0) g/dL Hct (42-52) % Plt Count (130-400) K/uL Sodium 130 L D 135 L (136-145) mmol/L Potassium 4.7 3.8 D (3.5-5.1) mmol/L Creatinine 1.74 H 1.53 H (0.6-1.4) mg/dl BMP 12/03/20 12/04/20 11:01 05:20 Sodium 130 L D 135 L Potassium 4.7 3.8 D Chloride 101 106 Carbon Dioxide 24 24 BUN 20 H 26 H Creatinine 1.74 H 1.53 H Glucose 293 H 168 H Calcium 8.1 L 8.2 L Medications Administered Current Inpatient Medications Acetaminophen (Acetaminophen 500 Mg Tab) 1,000 mg PO Q8H PRN PRN Reason: MILD Pain Scale 1,2,3 & Pre PT Stop: 12/31/20 14:40 Last Admin: 12/03/20 13:00 Dose: 1,000 mg Documented by: Al Hydrox/Mg Hydrox/Simethicone (Aluminum/Magnesium Susp 30 Ml Udc) 30 ml PO Q6H PRN PRN Reason: Dyspepsia Stop: 12/31/20 14:40 Aspirin (Aspirin 81 Mg Ectab) 81 mg PO QAM [facility] Stop: 01/01/21 08:59 Last Admin: 12/04/20 09:31 Dose: 81 mg Documented by: Bisacodyl (Bisacodyl 10 Mg Supp) 10 mg ME DAILY PRN PRN Reason: Constipation Stop: 12/31/20 14:40 Cetirizine HCl (Cetirizine Hcl 10 Mg Tablet) 10 [facility] [place] Stop: 01/01/21 08:59 Last Admin: 12/04/20 09:31 Dose: 10 mg Documented by: Dextrose (Dextrose 50% 50 Ml Syringe) 25 - 50 ml IV UD PRN; Protocol PRN Reason: Hypoglycemia Protocol Stop: 12/31/20 16:14 Diphenhydramine HCl (Diphenhydramine Capsule 25 Mg Cap) 25 mg PO Q6H PRN PRN Reason: Allergic Rhinitis/Insomnia Stop: 12/31/20 14:40 Famotidine (Famotidine 20 Mg Tab) 20 mg PO Q12H PRN PRN Reason: Dyspepsia Stop: 12/31/20 14:40 Glucagon (Glucagon For Inj 1 Mg Vial) 1 mg IM UD PRN; Protocol PRN Reason: Hypoglycemia Protocol Stop: 12/31/20 16:14 Glucose (Glucose 40% Gel 15 Gm Tube) 15 - 30 gm PO UD PRN; Protocol PRN Reason: Hypoglycemia Protocol Stop: 12/31/20 16:14 Glucose (Glucose 10 Tabs/Tube) 4 - 8 tabs PO UD PRN; Protocol PRN Reason: Hypoglycemia Protocol Stop: 12/31/20 16:14 Hydromorphone HCl (Hydromorphone Inj 0.5 Mg/0.5 Ml Syr) 0.5 mg IV Q3H PRN PRN Reason: MODERATE Pain (Scale 4,5,6) & Pre PT Stop: 12/15/20 14:40 Hydromorphone HCl (Hydromorphone Inj 1 Mg/Ml Syringe) 1 mg IV Q3H PRN PRN Reason: SEVERE Pain (Scale 7,8,9,10) Stop: 12/15/20 14:40 Last Admin: 12/03/20 00:06 Dose: 1 mg Documented by: Hydroxyzine HCl (Hydroxyzine Hcl 25 Mg Tab) 25 mg PO Q8H PRN PRN Reason: Anxiety Stop: 12/31/20 14:40 Promethazine HCl 12.5 mg/ (Sodium Chloride) 50.5 mls @ 202 mls/hr IV Q6H PRN PRN Reason: Nausea &/or Vomiting Stop: 12/31/20 14:40 Acetaminophen (Ofirmev) 1,000 mg in 100 mls @ 400 mls/hr IV Q8H PRN PRN Reason: Pain Rating 1-3 & Pre PT Stop: 12/04/20 14:40 Lorazepam (Ativan) 0.5 mg in 1 mls @ 1 mls/min IV Q8H PRN PRN Reason: Sedation/Anxiety Stop: 12/31/20 14:40 Dexamethasone 8 mg/ Syringe 2 mls @ 1 mls/min IV DAILY [facility] Stop: 01/02/21 08:59 Last Admin: 12/04/20 09:34 Dose: 1 mls/min Documented by: Sodium Chloride (Nss 1000ml) 1,000 mls @ 80 mls/hr IV .[id number] [facility] Stop: 01/02/21 16:59 Last Admin: 12/04/20 05:01 Dose: 80 mls/hr Documented by: Influenza Virus Vaccine Quadrival (Do Not Administer Flu Vaccine) 1 ea N/A PRN PRN PRN Reason: Notification Stop: 12/31/20 14:40 Insulin Aspart (Insulin Aspart 100 Units/Ml 3 Ml Pen) 0 units SC ACHS [facility] Stop: 12/31/20 16:29 Last Admin: 12/04/20 09:42 Dose: 11 units Documented by: Insulin Glargine (Insulin Glargine Solostar 100 Units/Ml 3 Ml Pen) 30 units SC DAILY [facility] Stop: 01/03/21 08:59 Last Admin: 12/04/20 09:43 Dose: 30 units Documented by: Lorazepam (Lorazepam 0.5 Mg Tab) 0.5 mg PO Q8H PRN PRN Reason: Sedation/Anxiety Stop: 12/31/20 14:40 Magnesium Hydroxide (Magnesium Hydroxide Susp 30 Ml Udc) 30 ml PO Q24H PRN PRN Reason: Constipation Stop: 12/31/20 14:40 Metoclopramide HCl (Metoclopramide Hcl Inj 5 Mg/Ml 2 Ml Vial) 10 mg IV Q6H PRN PRN Reason: Nausea &/or Vomiting Stop: 12/31/20 14:40 Miscellaneous (Carbohydrates For Hypoglycemia ) 15 - 30 gm PO UD PRN PRN Reason: Hypoglycemia Treatment Stop: 12/31/20 16:14 Miscellaneous Information (Pharmacy Glycemic Mgmt Consult) 1 ea N/A UD PRN PRN Reason: Consult Stop: 12/31/20 14:40 Multivitamins (Multivitamin Tab) 1 tab PO QAM [facility] Stop: 01/01/21 08:59 Last Admin: 12/04/20 09:32 Dose: 1 tab Documented by: Naloxone HCl (Naloxone Hcl 0.4 Mg/1 Ml Vial/Carp) 0.1 mg IV Q5M PRN PRN Reason: Oversedation/Resp depression Stop: 12/31/20 14:40 Ondansetron HCl (Ondansetron Inj 2 Mg/Ml 2 Ml Vial) 4 mg IV Q6H PRN PRN Reason: Nausea &/or Vomiting Stop: 12/31/20 14:40 Ondansetron HCl (Ondansetron 4 Mg Od Tab) 4 mg PO Q6H PRN PRN Reason: Nausea Stop: 12/31/20 14:40 Oxycodone HCl (Oxycodone Hcl Ir 5 Mg Tab (Immediate Release)) 5 - 10 mg PO Q4H PRN PRN Reason: Pain & Pre PT Stop: 12/15/20 14:40 Last Admin: 12/02/20 18:16 Dose: 10 mg Documented by: Pneumococcal Polyvalent Vaccine (Do Not Administer Pneumococcal Vaccine) 1 ea N/A PRN PRN PRN Reason: Notification Stop: 12/31/20 14:40 Polyethylene Glycol (Polyethylene (Miralax) 17 Gm Pack) 17 gm PO Q6 [facility] Stop: 01/01/21 05:59 Last Admin: 12/04/20 05:00 Dose: 17 gm Documented by: Senna/Docusate Sodium (Docusate Sodium/Senna 50/8.6mg Tab) 2 tab PO HS [facility] Stop: 12/31/20 20:59 Last Admin: 12/03/20 21:06 Dose: 2 tab Documented by: Sodium Biphosphate/Sodium Phosphate (Sod Phosphate/Sod Biphosphate Enema 132 Ml Btl) 132 ml ME ONE PRN PRN Reason: Constipation Stop: 12/31/20 14:40 Tramadol HCl (Tramadol Hcl 50 Mg Tablet) 50 - 100 mg PO Q4H PRN PRN Reason: Moderate-Severe pain & Pre PT Stop: 12/31/20 14:40 Last Admin: 12/04/20 09:38 Dose: 100 mg Documented by:
[2020-12-04] MEDS: CETIRIZINE HCL 10 MG TABLET PO SCH (09:31)
[2020-12-04] MEDS: ASPIRIN 81 MG ECTAB PO SCH (09:31)
[2020-12-04] MEDS: MULTIVITAMIN TAB PO SCH (09:32)
[2020-12-04] MEDS: dexAMETHasone 8 MG in SYRINGE 0 ML IV SCH (09:34)
[2020-12-04] MEDS: traMADol HCL 50 MG TABLET PO PRN (09:38)
[2020-12-04] MEDS: INSULIN ASPART 100 UNITS/ML 3 ML PEN SC SCH ×2 (09:42→12:43)
--- NOTE | 2020-12-04 11:31 | Discharge Summary ---
Date of Service December 04, 2020 Admission HPI Per Admitting Provider This is a very pleasant 80-year-old male that a year ago was walking 5 miles a day and now is unable to walk down his driveway. He notes significant pain rating into the bilateral buttocks extending down his legs. Is associated with weakness and he must sit to obtain any relief. He has failed Stents of course of nonoperative care. Principal Diagnosis Lumbar spinal stenosis with neurogenic claudication Discharge Data Allergies Allergy/AdvReac Type Severity Reaction Status Date / Time No Known Allergies Allergy Verified 12/01/20 08:50 Consultations 12/01/20 14:41 Consult Hospitalist Routine Procedures Performed Operation Date: 12/01/20 09:55 Actual Procedures p L2-L5 Decompression Fusion, With Interbody at L3-L4 and L4-L5, Spinal Cord Monitoring and Allograft (Not Applicable) - Bismark Castro DO Ordered Studies 12/01/20 09:55 [place] lumbar spine 2-3V Routine Hospital Course (1) Neurogenic claudication due to lumbar spinal stenosis: Patient with lumbar decompression fusion trial so was taken to orthopedic for postop labor postop day 1 is up and ambulating briskly postop day or 2 on postop day #3 WILDA drain decreased appropriately. Pain well controlled. Excellent strength testing. Safely discharged home. Discharge orders instructions from the chart for further view. Total Time Total Time Spent Total Time Spent (In Minutes): 20 minutes Discharge Plan Discharge Items Patient Disposition: Home - Self-Care Reason For Visit: Spinal Stenosis, Lumbar Region with Neurogenic Cla Discharge Diagnosis: Lumbar spinal stenosis with neurogenic claudication Activity: As commented below Non-emergency contact: Primary Care Provider Call non-emergency contact if: you have any medication questions Follow-up/Referrals: Nayan Shields MD [Primary Care Provider] - Diet: Regular Addtl Attending Provider Instructions: ACTIVITY RECOMMENDATIONS: SELF CARE INSTRUCTIONS AFTER THORACIC/LUMBAR FUSIONS 1. You may walk to your tolerance. It is good exercise for your legs and back. Expect some back and intermittent leg aches and pains. 2. You may perform "counter-top" level activities (make a sandwich, maria d with a project, etc.). 3. No bending or lifting of more than 10 pounds or back twisting of any nature (roll like a log when turning in bed). 4. You may ride in a car for 20-30 minutes at a time. No driving until after your first visit with your doctor. 5. Frequent changes of position and restricting sitting to 30 minutes at a time will help limit the amount of back spasms and stiffness you may experience. 6. You may discontinue the use of ambulatory aids (cane, crutches, etc.) once your strength and confidence allow. 7. 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 Do not take a tub bath, sit in a hot tub or go into a swimming pool until after your first recheck in the office. SPECIAL CARE INSTRUCTIONS: VERY IMPORTANT TO READ AND REVIEW A. Your surgical incision has been closed with a cosmetic suture under the skin that will dissolve in about 6 weeks. In 14 days, you can use a pair of clean scissors and cut the suture that is left outside of the skin at the ends of your incision. 1. The small skin tapes can be removed 7 days after surgery if they have not fallen off by that point. 2. You may keep the wound open to air as much as possible to promote healing after post-op day number 5 unless told otherwise by your doctor. 3. If you think the wound looks like it is becoming infected (redness or worsening drainage) and/or you are experiencing fever, chill or worsening back pain and muscle spasms, contact the office so that we may evaluate you as soon as possible. B. Complications are uncommon, but please contact us if you have any signs or symptoms of: 1. wound infection (fever higher than 102.5 degrees F, redness, separation of wound, drainage, or increasing pain from the incision) 2. blood clots in legs (pain, swelling, redness and warmth in legs) 3. urinary tract infection (fever higher than 102.5 degrees F, burning upon urination or increased frequency of urination) 4. nerve problems (inability to walk on your toes or heels, numbness, loss of bowel or bladder control) 5. any other symptoms that concern you C. Please call the office at if you have any concerns or questions about your operation or recovery. D. No smoking! Smoking drastically decreases the chance of a solid fusion. E. Do not take any anti-inflammatory medications (Indocin, Advil, Motrin, Aspirin, Naprosyn, etc.) as these may inhibit the chance of a solid fusion. Tylenol is okay to take for pain. MANAGING PAIN AFTER SPINAL SURGERY 1. Narcotic medication is intended for short-term use and will be provided for surgical pain. Surgical pain usually lasts for a period of 4-6 weeks. Narcotic medication includes Percocet, Vicodin, Darvocet, Tylenol #3 or Lortab. 2. Longer-term pain is more appropriately treated with non-narcotic medication such as Tylenol ES. 3. Muscle spasm is not appropriately treated with narcotics. Muscle relaxers such as Soma, Flexeril or Skelaxin can be used along with Tylenol ES. 4. Remember that we all live with some "aches and pains". This is not unusual or uncommon after an injury or as we get older. a. Back pain is expected and may include muscle spasms for 4 to 6 weeks after surgery. The pain should gradually improve. If the pain worsens for no apparent reason, please contact the office. b. Intermittent leg pain may also be experienced and should not be concerned about unless it worsens for no apparent reason. If so, please contact the office. 5. We will provide appropriate medication within the normal guidelines of their prescribed use. We will also be very cautious and aware of potential abuse and extended duration of patients' medication needs. a. Pain medications are for your comfort and to assist with sleep and rest so that the tissue can heal. They are not provided in order to return to normal activity and should not be used through the day. To do so or worsening pain at night can result from ongoing tissue damage and development of tolerance to the prescribed medicine. 6. Please allow 2-3 days to process refills. Prescriptions will not be mailed but must be picked up at the office. FOLLOW UP VISIT: Keep your scheduled follow-up appointment. Any questions, please call the office at . Pending Studies at Discharge: No Stand-Alone Forms: My UNI5, Smoking Cessation Medications and DC Order Prescriptions: New tramadol 50 mg tablet 50 mg PO Q6H PRN (Reason: pain, moderate) Qty: 30 RF: 0 oxycodone 5 mg tablet 5 mg PO Q6H PRN (Reason: pain, severe) Qty: 30 RF: 0 Continued tramadol 50 mg Tablet 50 mg PO BID PRN (Reason: Pain) RF: 0 Tradjenta 5 mg Tablet 5 mg PO QAM RF: 0 multivitamin Tablet 1 tab PO QAM RF: 0 metformin 500 mg Tablet 500 mg PO BID RF: 0 acetaminophen 500 mg Capsule 500 - 1,000 mg PO BID RF: 0 cyanocobalamin (vitamin B-12) 2,000 mcg Tablet 2,000 mcg PO QAM RF: 0 cetirizine [Zyrtec] 10 mg Tablet 10 mg PO QAM RF: 0 aspirin 81 mg Tablet,Delayed Release (Dr/Ec) 81 mg PO QAM RF: 0 Discharge Orders: Discharge Order (Routine); Ordered 12/04/20 Ordered By: Bismark Castro Admission Data Admit Date/Time: 12/01/20 13:11 Attending Provider: Bismark Castro Admit Provider: Bismark Castro Primary Care Provider: Nayan Shields Other Providers: Alva Neves ; Nayan Shields
[2020-12-04] MEDS ORDERED: INSULIN GLARGINE SOLOSTAR 100 UNITS/ML 3 ML PEN SC ONE (12:30)
[2020-12-04] MEDS: oxyCODONE HCL IR 5 MG TAB (IMMEDIATE RELEASE) PO PRN (12:45)
[2020-12-05] MEDS ORDERED: INSULIN GLARGINE SOLOSTAR 100 UNITS/ML 3 ML PEN SC SCH (09:00)
== END 2020-12-04 13:45 | disposition home or self-care (01) | DRG 455 ==
LOC: ASU 08:20 → 3E 13:11
DX: G47.30 Sleep apnea, unspecified; Z20.822 Contact with and (suspected) exposure to COVID-19; E11.9 Type 2 diabetes mellitus without complications; Z79.82 Long term (current) use of aspirin; Y92.239 Unspecified place in hospital as the place of occurrence of the external cause; M43.16 Spondylolisthesis, lumbar region; Z83.3 Family history of diabetes mellitus; Z01.812 Encounter for preprocedural laboratory examination; M48.062 Spinal stenosis, lumbar region with neurogenic claudication; T40.2X5A Adverse effect of other opioids, initial encounter; Z96.643 Presence of artificial hip joint, bilateral; Z79.84 Long term (current) use of oral hypoglycemic drugs; R33.8 Other retention of urine

== ENCOUNTER 2021-03-04 08:34 | Inpatient (IN) ==
[2021-03-04] MEDS ORDERED: fentaNYL citrate 100 MCG/2 ML VIAL IV STA (08:52)
[2021-03-04] MEDS ORDERED: ONDANSETRON INJ 2 MG/ML 2 ML VIAL IV STA (08:52)
--- NOTE | 2021-03-04 08:55 | Emergency Department Note ---
Impression & Plan Intractable low back pain, Loosening of hardware in spine, Bilateral leg weakness ED Provider Note Name: VAUGHN BECERRA Age: 80 Sex: M Arrives Via: Walk-In Informant: Patient, , Dr Castro ED Provider: Sebastian Celis MD Chief Complaint: Low back pain Impression: As per impressions above Medical Decision Making: Very pleasant 80-year-old gentleman who arrives for evaluation of low back pain. He has a history of type 2 diabetes osteoporosis and dyslipidemia. On his exam he is in quite some distress and has weakness of bilateral legs. Patient just had a CT of the lumbar spine a few days ago which revealed loosening of the hardware. I reviewed the case with his surgeon Dr. Castro who notes that patient will require return to the OR. Given the patient's pain the findings of the CT scan this is consistent with need for going back to or in the near future. Patient pain was controlled with IV narcotics and some IV acetaminophen. He and are on board with the plan and he was admitted to spinal surgery in stable condition. Prior Medical Record and Triage/Nursing Notes reviewed by Me Additional history obtained from chart Differentials:Musculoskeletal, disc herniation, fracture, metastatic disease, c ord compression, discitis, sciatica, cauda equina, infection, aortic disease, renal colic, gastrointestinal, as well as other pathologies. Vital Signs: reviewed and remarkable for no significant abnormalities Interventions: Saline lock,Fentanyl IV, Zofran IV, normal saline bolus IV, Tylenol IV, Dilaudid IV Labs:Reviewed and remarkable for no significant abnormalities Imagin view chest x-ray no acute findings EKG:Per My Interpretation: Indication preoperative: Sinus rhythm with a first- degree AV block at 76 bpm, qtc 416. No Ectopy. No Ischemia. Compared to EKG 11/17/2020, no significant changes. Cardiac/Tele Monitoring: none Consults:Dr. Castro U spinal surgery Plan: Disposition:Hospitalization. Condition: Good History of Present Illness:This is an 80-year-old gentleman who arrives for evaluation of back pain. Patient with 8 to 9 years of low back pain and after failure of multiple outpatient PT treatments eventually had surgery mid November 2020. Surgery was an L2-L5 lumbar decompression and fusion secondary to neurogenic claudication with lumbar spinal stenosis. Patient notes initially he had done quite well and was up and ambulating frequently. Following his first postoperative evaluation as an outpatient patient started to notice bilate ral lower back pain which would radiate down his legs. Over the course of the next few days/weeks rapidly worsening low back pain which radiated down bilateral legs. On repeat outpatient evaluation he was told that one of the screws had come loose and that this was likely going to require further surgery. Due to progressively worsening weakness in his legs and severe pain patient arrives to the ER this morning. Patient is no longer able to ambulate due to the pain. He is unable to stand straight or lay flat due to severe pain and can only tolerate pain when leaning forward. He has been using tramadol without improvement. Patient denies any loss of bowel or bladder function. He denies any other neurologic deficits in upper extremities nor does he have any headache nor neck pain. He has had no falls, trauma, injuries. Movement makes worse leaning forward and sitting seems to make slightly better. Patient is type II diabetic and believes that sugars have been running in the 160s to 180s. He has had no fevers but states when the pain is severe he does get chills. He has had no shortness of breath, chest pain, fevers, headaches, neck pain, leg swelling, calf pain, abdominal pain, nausea, vomiting, rashes nor other symptoms. No recent bleeding no abnormal bruising. He is not on no blood thinners besides aspirin 81 mg daily. Patient is Covid vaccinated and has not had Covid. ROS: See above HPI for pertinent positives & negatives. A total of 10 systems reviewed and were otherwise negative. 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 EYES: No scleral icterus, unremarkable pupils. ENT: Mucous membranes moist, no nasal congestion. NECK: No masses appreciated, nomeningismus, trachea is midline. RESPIRATORY: No dyspnea. Clear to auscultation and equal bilaterally. No wheeze, no rhonchi. CARDIOVASCULAR: Regular rate and rhythm.No murmurs, rubs, gallops appreciated. GASTROINTESTINAL: Abdomen soft, non-tender, no peritonitis.Bowel sounds positive.No masses appreciated. BACK: Healed midline lumbar surgical scar with 1 cm protruding mass low lumbar which is firm, non-tender, non erythematous. No midline tenderness, no CVA tenderness EXTREMITIES: Normal motion all extremities, no cyanosis, no edema. NEUROLOGIC: Alert and oriented, no acute motor or sensory deficits, no focal weakness, cranial nerves grossly intact. SKIN: No rash, no jaundice, no diaphoresis. 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" Chronic back pain CKD stage 3 due to type 2 diabetes mellitus Diabetes mellitus, type 2 Glucose stable First degree AV block Kidney stones HX Sleep apnea "SLEEPS SITTING UP"-DUE TO BACK ISSUES-QUIT USING HIS CPAP YRS AGO Spinal stenosis Spondylolisthesis Vitamin B12 deficiency Vitamin D deficiency Surgical History (Updated 12/11/20 @ 14:31 by Marcia Singh) History of cataract surgery History of colonoscopy History of cystoscopy WITH STENT FOR STONES History of surgical removal of pilonidal cyst History of total hip arthroplasty R/L Family History (Updated 12/11/20 @ 14:30 by Marcia Singh) Brother Family history of diabetes mellitus Diabetes Blood disorder Brother Family history of diabetes mellitus Colorectal cancer Diabetes Mother Family hx of colon cancer Colorectal cancer Father Heart disease Sister Coronary heart disease COPD (chronic obstructive pulmonary disease) Social History Smoking Status: Never smoker Second Hand Exposure: Yes (PARENTS SMOKED); Hx Alcohol Use: No Hx Substance Use: No Preferred Language: Irish Communication Ability: Effective Aerial Photographer Required: No Beliefs That Will Affect Care: None marital status: Current Living Situation: Spouse current occupational status: other 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 Feels Safe at Home: Yes Assistive Devices: Walker Allergies Allergies Allergy/AdvReac Type Severity Reaction Status Date / Time No Known Allergies Allergy Verified 03/04/21 09:55 Home Meds Home Medications Medication Instructions Recorded Confirmed acetaminophen 500 mg capsule 500 - 1,000 mg PO BID 11/08/20 03/04/21 aspirin 81 mg tablet,delayed 81 mg PO QAM 11/08/20 03/04/21 release cetirizine 10 mg tablet (Zyrtec) 10 mg PO QAM 11/08/20 03/04/21 cyanocobalamin (vitamin B-12) 2,000 mcg PO QAM 11/08/20 03/04/21 2,000 mcg tablet linagliptin 5 mg tablet (Tradjenta) 5 mg PO QAM 11/08/20 03/04/21 metformin 500 mg tablet 500 mg PO BID 11/08/20 03/04/21 multivitamin 1 tab PO QAM 11/08/20 03/04/21 Previous Rx's Medication Instructions Recorded tramadol 50 mg tablet 50 mg PO Q6H PRN #30 tab 12/02/20 tamsulosin 0.4 mg capsule (Flomax) 0.4 mg PO DAILY #30 cap 12/11/20 Results & Data (ED) Vital Signs Vital Signs - 24 hr 03/04/21 08:38 03/04/21 09:27 03/04/21 09:30 Temperature 37.1 C Temperature Source Oral Pulse Rate 86 76 78 Pulse Rate from SpO2 Sensor 78 78 Respiratory Rate 18 19 19 Blood Pressure 127/65 110/68 Blood Pressure Mean 85 82 Pulse Oximetry 99 97 95 Oxygen Delivery Method Room Air Sepsis Recent Fever Within 48 Hours No Sepsis New/Unexplained Change in Mental Status No Sepsis Action Taken by Nursing No Action Required 03/04/21 09:40 03/04/21 09:50 03/04/21 10:00 Temperature Temperature Source Pulse Rate 77 75 70 Pulse Rate from SpO2 Sensor 75 76 71 Respiratory Rate 16 17 7 L Blood Pressure 123/66 Blood Pressure Mean 85 Pulse Oximetry 97 90 90 Oxygen Delivery Method Sepsis Recent Fever Within 48 Hours Sepsis New/Unexplained Change in Mental Status Sepsis Action Taken by Nursing 03/04/21 10:10 03/04/21 10:20 03/04/21 10:30 Temperature Temperature Source Pulse Rate 90 72 Pulse Rate from SpO2 Sensor 69 72 60 Respiratory Rate 19 16 15 Blood Pressure 110/68 Blood Pressure Mean 82 Pulse Oximetry 91 96 98 Oxygen Delivery Method Sepsis Recent Fever Within 48 Hours Sepsis New/Unexplained Change in Mental Status Sepsis Action Taken by Nursing 03/04/21 10:40 Temperature Temperature Source Pulse Rate Pulse Rate from SpO2 Sensor 67 Respiratory Rate 15 Blood Pressure Blood Pressure Mean Pulse Oximetry 96 Oxygen Delivery Method Sepsis Recent Fever Within 48 Hours Sepsis New/Unexplained Change in Mental Status Sepsis Action Taken by Nursing Laboratory Data Result diagrams: 03/04/21 09:03/04/21 09:19 Lab Results 03/04/21 03/04/21 03/04/21 Range/Units 09: 09: 09:19 WBC 8.41 (4.8-10.8) K/uL RBC 4.38 L (4.7-6.1) M/uL Hgb 12.4 L (14.0-18.0) g/dL Hct 38.3 L (42-52) % MCV 87.4 (80-100) fL MCH 28.3 (25-34) pg MCHC 32.4 (32-36) g/dL RDW Std Deviation 45.5 (36.4-46.3) fL RDW Coeff of Ronnie 14.2 (11.5-14.5) % Plt Count 159 (130-400) K/uL MPV 10.3 (7.4-10.4) fL Immature Gran % (Auto) 0.2 % Neut % (Auto) 82.7 % Lymph % (Auto) 9.3 % [place] % (Auto) 7.1 % Eos % (Auto) 0.6 % Baso % (Auto) 0.1 % Neut # (Auto) 6.95 H (1.4-6.5) K/uL Lymph # (Auto) 0.78 L (1.2-3.4) K/uL [place] # (Auto) 0.60 H (0.11-0.59) K/uL Eos # (Auto) 0.05 (0-0.5) K/uL Baso # (Auto) 0.01 (0-0.2) K/uL Immature Gran # (Auto) 0.02 (0.00-0.02) K/uL PT 10.6 (9.0-12.0) Seconds INR 1.0 (0.9-1.1) APTT 26.6 (21.0-31.0) Seconds PTT Ratio 1.0 Sodium 133 L (136-145) mmol/L Potassium 4.2 (3.5-5.1) mmol/L Chloride 102 (98-107) mmol/L Carbon Dioxide 23 (21-32) mmol/L Anion Gap 9.0 (3-11) BUN 21 H (7-18) mg/dl Creatinine 1.46 H (0.6-1.4) mg/dl Est Cr Clr Drug Dosing 43.7 ml/min Est GFR ( Amer) 51.2 ml/min Est GFR (Non-Af Amer) 44.2 ml/min BUN/Creatinine Ratio 14.6 (10-20) Glucose 203 H (70-99) mg/dl Calcium 9.4 (8.5-10.1) mg/dl SARS-CoV-2, RNA, NAAT (NEGATIVE) 03/04/21 Range/Units 09:33 WBC (4.8-10.8) K/uL RBC (4.7-6.1) M/uL Hgb (14.0-18.0) g/dL Hct (42-52) % MCV (80-100) fL MCH (25-34) pg MCHC (32-36) g/dL RDW Std Deviation (36.4-46.3) fL RDW Coeff of Ronnie (11.5-14.5) % Plt Count (130-400) K/uL MPV (7.4-10.4) fL Immature Gran % (Auto) % Neut % (Auto) % Lymph % (Auto) % [place] % (Auto) % Eos % (Auto) % Baso % (Auto) % Neut # (Auto) (1.4-6.5) K/uL Lymph # (Auto) (1.2-3.4) K/uL [place] # (Auto) (0.11-0.59) K/uL Eos # (Auto) (0-0.5) K/uL Baso # (Auto) (0-0.2) K/uL Immature Gran # (Auto) (0.00-0.02) K/uL PT (9.0-12.0) Seconds INR (0.9-1.1) APTT (21.0-31.0) Seconds PTT Ratio Sodium (136-145) mmol/L Potassium (3.5-5.1) mmol/L Chloride (98-107) mmol/L Carbon Dioxide (21-32) mmol/L Anion Gap (3-11) BUN (7-18) mg/dl Creatinine (0.6-1.4) mg/dl Est Cr Clr Drug Dosing ml/min Est GFR ( Amer) ml/min Est GFR (Non-Af Amer) ml/min BUN/Creatinine Ratio (10-20) Glucose (70-99) mg/dl Calcium (8.5-10.1) mg/dl SARS-CoV-2, RNA, NAAT NEGATIVE (NEGATIVE) Administered Medications Sodium Chloride (Nss 1000ml) 1,000 mls @ 125 mls/hr IV .Q8H AFTAB Stop: 04/03/21 08:59 Last Admin: 03/04/21 09:48 Dose: 125 mls/hr Documented by: [id number] Discontinued Medications Fentanyl Citrate (Fentanyl Citrate 100 Mcg/2 Ml Vial) 50 mcg IV NOW STA Stop: 03/04/21 08:53 Last Admin: 03/04/21 09:47 Dose: 50 mcg Documented by: [id number] Hydromorphone HCl (Hydromorphone Inj 0.5 Mg/0.5 Ml Syr) 0.5 mg IV NOW STA Stop: 03/04/21 10:59 Last Admin: 03/04/21 11:01 Dose: 0.5 mg Documented by: [id number] Hydromorphone HCl (Hydromorphone Inj 1 Mg/Ml Syringe) Confirm Administered Dose 1 mg .ROUTE .STK-MED ONE Stop: 03/04/21 14:32 Last Admin: 03/04/21 14:34 Dose: 1 mg Documented by: [id number] Acetaminophen (Ofirmev) 1,000 mg in 100 mls @ 400 mls/hr IV NOW STA Stop: 03/04/21 10:04 Last Infusion: 03/04/21 11:01 Dose: 0 mls/hr Documented by: [id number] Admin: 03/04/21 09:55 Dose: 400 mls/hr Documented by: [id number] Ondansetron HCl (Ondansetron Inj 2 Mg/Ml 2 Ml Vial) 4 mg IV NOW STA Stop: 03/04/21 08:53 Last Admin: 03/04/21 09:48 Dose: 4 mg Documented by: [id number] Imaging Data Radiologist's Impression: Chest X-Ray 03/04/21 08:52 XR chest 1V portable HISTORY: 80 years-old Male preop preoperative exam. COMPARISON: Chest radiographs 11/17/2020 TECHNIQUE: Portable AP view of the chest FINDINGS: The cardiomediastinal and hilar silhouettes are within normal limits. No pneumothorax, pleural effusion, airspace consolidation or overt pulmonary edema. Unchanged ill-defined opacities of the lateral left upper lung. Degenerative c hanges of the shoulders and spine. IMPRESSION: No acute process. ACT 112: Negative or not required by law. The above report was generated using voice recognition software. It may contain grammatical, syntax or spelling errors. Electronically signed by: Tomás Ellis M.D. 03/04/2021 9:14 AM Discharge Plan Visit Data Chief Complaint: Back Injury/Pain Stated Complaint: LOWER BACK PAIN/SURGERY 12/01/20/REF BY DR CASTRO ED Provider: Sebastian Celis Discharge Problem: Intractable low back pain, Loosening of hardware in spine, Bilateral leg weakness Discharge Instructions Interventions: ED Discharge Assessment Last Done: 03/04/21 16:14
--- NOTE | 2021-03-04 09:16 | XRay Report ---
XR chest 1V portable HISTORY: 80 years-old Male preop preoperative exam. COMPARISON: Chest radiographs 11/17/2020 TECHNIQUE: Portable AP view of the chest FINDINGS: The cardiomediastinal and hilar silhouettes are within normal limits. No pneumothorax, pleural effusi on, airspace consolidation or overt pulmonary edema. Unchanged ill-defined opacities of the lateral l eft upper lung. Degenerative changes of the shoulders and spine. IMPRESSION: No acute process. ACT 112: Negative or not required by law. The above report was generated using voice recognition software. It may contain grammatical, syntax o r spelling errors. Electronically signed by: Tomás Ellis M.D. 03/04/2021 9:14 AM
[2021-03-04 09:37] LABS: Basophils # (auto) 0.01 K/uL (0-0.2); Basophils % (auto) 0.1 %; Eosinophils # (auto) 0.05 K/uL (0-0.5); Eosinophils % (auto) 0.6 %; Hematocrit (blood only) 38.3 % (42-52); Hemoglobin 12.4 g/dL (14.0-18.0); Immature Granulocytes # (auto) 0.02 K/uL (0.00-0.02); Immature Granulocytes % (auto) 0.2 %; Lymphocytes # (auto) 0.78 K/uL (1.2-3.4); Lymphocytes % (auto) 9.3 %; Mean Corpuscular Hemoglobin 28.3 pg (25-34); Mean Corpuscular Hgb Conc 32.4 g/dL (32-36); Mean Corpuscular Volume 87.4 fL (80-100); Mean Platelet Volume 10.3 fL (7.4-10.4); Monocytes % (auto) 7.1 %; Neutrophils # (auto) 6.95 K/uL (1.4-6.5); Neutrophils % (auto) 82.7 %; Platelet Count 159 K/uL (130-400); RDW Coefficient of Variation 14.2 % (11.5-14.5); RDW Standard Deviation 45.5 fL (36.4-46.3); Red Blood Count 4.38 M/uL (4.7-6.1); White Blood Count 8.41 K/uL (4.8-10.8)
[2021-03-04 09:47] LABS: Partial Thromboplastin Time 26.6 Seconds (21.0-31.0); Prothrombin Time 10.6 Seconds (9.0-12.0)
[2021-03-04] MEDS: SODIUM CHLORIDE 0.9% 1000ML 1,000 ML IV SCH ×3 (09:48→19:44)
[2021-03-04] MEDS ORDERED: ACETAMINOPHEN 1,000 MG/100 ML VIAL IV STA (09:50)
[2021-03-04 09:55] LABS: BUN Creatinine Ratio 14.6 (10-20); Calcium 9.4 mg/dl (8.5-10.1); Creatinine Clr Calc Pharmacy 43.7 ml/min; Est GFR (African American) 51.2 ml/min; Est GFR (Non-African American) 44.2 ml/min; Potassium 4.2 mmol/L (3.5-5.1)
[2021-03-04] MEDS ORDERED: HYDROmorphone INJ 0.5 MG/0.5 ML SYR IV STA (10:58)
--- NOTE | 2021-03-04 11:16 | History & Physical Report ---
Date of Service March 04, 2021 Assessment & Plan (1) Osteoporotic compression fracture of spine: Plan: Assessment osteoporotic fracture of L5 with loosening of hardware. Plan at this time in light of his progressive neurologic decline pain and obvious loosening of spinal implants I am recommending medical evaluation in urgent revision decompression fusion L4-L5. Risk benefits pros cons alternatives were outlined in detail with the patient his . They understand and agree. Weight n.p.o. after midnight. History of Present Illness Chief Complaint: Back and left leg pain Primary Care Provider: Nayan Shields MD This is a 80-year-old male well-known to me the presents with marked decline in status over the past several days. He is status post multilevel lumbar decompression fusion approximately 6 weeks ago. He had tolerated this well but had a marked decline in status over the past week. Imaging performed in our office Friday demonstrates evidence of osteoporotic loosening of the inferior aspect of the hardware at the L5 pedicle screws. There is posterior migration of interbody cage and kyphosis across this level. This is dramatic change from his postoperative x-rays. He is also noting severe left leg pain and has been progressive over the past few days he is no longer able to ambulate secondary to pain. Allergies Allergy/AdvReac Type Severity Reaction Status Date / Time No Known Allergies Allergy Verified 03/04/21 09:55 Home Medications Medication Instructions Recorded Confirmed Type acetaminophen 500 mg capsule 500 - 1,000 mg PO BID 11/08/20 03/04/21 History aspirin 81 mg tablet,delayed 81 mg PO QAM 11/08/20 03/04/21 History release cetirizine 10 mg tablet (Zyrtec) 10 mg PO QAM 11/08/20 03/04/21 History cyanocobalamin (vitamin B-12) 2,000 mcg PO QAM 11/08/20 03/04/21 History 2,000 mcg tablet linagliptin 5 mg tablet (Tradjenta) 5 mg PO QAM 11/08/20 03/04/21 History metformin 500 mg tablet 500 mg PO BID 11/08/20 03/04/21 History multivitamin 1 tab PO QAM 11/08/20 03/04/21 History tramadol 50 mg tablet 50 mg PO Q6H PRN #30 tab 12/02/20 03/04/21 Rx tamsulosin 0.4 mg capsule (Flomax) 0.4 mg PO DAILY #30 cap 12/11/20 03/04/21 Rx Past Med/Surg History Medical History (Updated 03/04/21 @ 11:15 by Bismark Castro, ) Aneurysm "3 ANEURYSMS"- F/U DR HOSSEIN LEW ANNUALLY-NO CHANGES-PT NOT SURE AWARE OF LOCATIONS Per cardo records "AAA, 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" Chronic back pain CKD stage 3 due to type 2 diabetes mellitus Diabetes mellitus, type 2 Glucose stable First degree AV block Kidney stones HX Sleep apnea "SLEEPS SITTING UP"-DUE TO BACK ISSUES-QUIT USING HIS CPAP YRS AGO Spinal stenosis Spondylolisthesis Vitamin B12 deficiency Vitamin D deficiency Surgical History (Updated 12/11/20 @ 14:31 by Marcia Singh) History of cataract surgery History of colonoscopy History of cystoscopy WITH STENT FOR STONES History of surgical removal of pilonidal cyst History of total hip arthroplasty R/L Family History (Updated 12/11/20 @ 14:30 by Marcia Singh) Brother Family history of diabetes mellitus Diabetes Blood disorder Brother Family history of diabetes mellitus Colorectal cancer Diabetes Mother Family hx of colon cancer Colorectal cancer Father Heart disease Sister Coronary heart disease COPD (chronic obstructive pulmonary disease) Social History Smoking Status: Never smoker Second Hand Exposure: Yes (PARENTS SMOKED); Hx Alcohol Use: No Hx Substance Use: No Preferred Language: Slovak Communication Ability: Effective Probation Agent Required: No Beliefs That Will Affect Care: None marital status: Current Living Situation: Spouse current occupational status: other 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 He is obviously uncomfortable. Does demonstrate reasonable plan strength 5 or 5 plantar flexion dorsiflexion bilaterally. There is deficits to the left quadricep compared to the right. Sensory is intact. Results & Data ([facility]) Vital Signs (Past 12 Hours) Vital Signs Temp Pulse Pulse Resp BP BP Pulse Ox 03/04/21 11:01 70 16 134/76 97 03/04/21 08:38 37.1 C 86 18 127/65 99 Code Status & VTE Plan VTE Prophylaxis Plan VTE Prophylaxis will be ordered: Yes
--- NOTE | 2021-03-04 14:27 | Electrocardiogram Report ---
Test Reason : Blood Pressure : / mmHG Vent. Rate : 076 BPM Atrial Rate : 076 BPM P-R Int : 228 ms QRS Dur : 104 ms QT Int : 370 ms P-R-T Axes : 041 -15 020 degrees QTc Int : 416 ms Sinus rhythm with 1st degree A-V block Otherwise normal ECG When compared with ECG of 17-NOV-2020 12:37, Premature ventricular complexes are no longer Present Confirmed by Baudilio Kraft ([id number]) on 03/04/2021 2:26:37 PM Referred By: Bismark Castro Confirmed By:Baudilio Kraft
[2021-03-04] MEDS ORDERED: HYDROmorphone INJ 1 MG/ML SYRINGE ONE (14:31)
[2021-03-04] MEDS ORDERED: NALOXONE HCL 0.4 MG/1 ML VIAL/CARP IV PRN (16:33)
[2021-03-04] MEDS ORDERED: MAGNESIUM HYDROXIDE SUSP 30 ML UDC PO PRN (16:33)
[2021-03-04] MEDS ORDERED: METOCLOPRAMIDE HCL INJ 5 MG/ML 2 ML VIAL IV PRN (16:33)
[2021-03-04] MEDS ORDERED: PHARMACY GLYCEMIC MGMT CONSULT PRN (16:33)
[2021-03-04] MEDS ORDERED: ONDANSETRON 4 MG OD TAB PO PRN (16:33)
[2021-03-04] MEDS ORDERED: PROMETHAZINE HCL 12.5 MG in SODIUM CHLORIDE 0.9% 50 ML IV PRN (16:33)
[2021-03-04] MEDS ORDERED: ACETAMINOPHEN 1,000 MG/100 ML VIAL IV PRN (16:33)
[2021-03-04] MEDS ORDERED: diphenhydrAMINE Capsule 25 MG CAP PO PRN (16:33)
[2021-03-04] MEDS ORDERED: ACETAMINOPHEN 500 MG TAB PO PRN (16:33)
[2021-03-04] MEDS ORDERED: SOD PHOSPHATE/SOD BIPHOSPHATE ENEMA 132 ML BTL PR PRN (16:33)
[2021-03-04] MEDS ORDERED: ONDANSETRON INJ 2 MG/ML 2 ML VIAL IV PRN (16:33)
[2021-03-04] MEDS ORDERED: hydrOXYzine HCl 25 MG TAB PO PRN (16:33)
[2021-03-04] MEDS ORDERED: HYDROmorphone INJ 0.5 MG/0.5 ML SYR IV PRN (16:33)
[2021-03-04] MEDS ORDERED: LORazepam 0.5 MG TAB PO PRN (16:33)
[2021-03-04] MEDS ORDERED: LORazepam 0.5 MG/1 ML VIAL IV PRN (16:33)
[2021-03-04] MEDS ORDERED: ALUMINUM/MAGNESIUM SUSP 30 ML UDC PO PRN (16:33)
[2021-03-04] MEDS ORDERED: GLUCOSE 10 TABS/TUBE PO PRN (17:07)
[2021-03-04] MEDS ORDERED: GLUCAGON FOR INJ 1 MG VIAL SQ PRN (17:07)
[2021-03-04] MEDS ORDERED: GLUCOSE 40% GEL 15 GM TUBE PO PRN (17:07)
[2021-03-04] MEDS ORDERED: CARBOHYDRATES FOR HYPOGLYCEMIA PO PRN (17:07)
[2021-03-04] MEDS ORDERED: DEXTROSE 50% 50 ML SYRINGE IV PRN (17:07)
--- NOTE | 2021-03-04 17:09 | Consultation ---
Date of Consultation March 04, 2021 Assessment & Plan (1) Intractable low back pain: (2) Loosening of hardware in spine: H/O L2-L3 decompression and fusion in 12/04/[address] Castro. Patient has been having increased low back pain and left leg pain with paresthesias. Was found to have loosening of hardware. Pt admitted for pain control and planned procedure -pain management per ortho -PT/OT as appropriate -DVT prophylaxis per ortho -NPO midnight -AM labs (3) Diabetes mellitus, type 2: A1c: 8.0 11/2020 Diabetic diet Hold home medication Basal bolus insulin per protocol (4) CKD (chronic kidney disease), stage III: Cr: 1.46. Baseline Cr: 1.4-1.6 Monitor renal functions, avoid nephrotoxic agents when possible DVT Prophylaxis -SCDs per ortho Full Code as per discussion with pt Follows with Dr Nayan Shields for routine care Pt was seen and care coordinated with Dr Monzon. See addendum Thank you for this consultation. We will follow the patient with you during their hospital stay. You can reach a member of the [employer] Hospitalist Team 07/10 via [facility] Supervising Physician Co-Signing Physician Notes Pt is a 80 y/o M with hx of DMII, AAA, CKDIII, recent hx of L2-L5 decompression and fusion admitted for revision decompression fusion L4-L5 Exam: Mild distress due to pain Cardiac: normal S1/S2, no murmur Lungs: CTA, no wheezing or crackles Abd: ND, NT and soft Psych: AAOx3 A/P: L DDD with radiculopathy s/p Decompression and fusion of L2-L5 -undergoing revision decompression fusion L4-L5 tomorrow -pain control per ortho -NPO after midnight DMII: -hold home meds -ISS CKD III: -monitor BMP DVT PPx: SCD Agree with A/P by Jocelyn Uriostegui PA-C History of Present Illness Requesting Physician: Dr Castro Reason for Consultation: Medical management Attending Physician: Bismark Castro DO History of Present Illness Patient is 80 y/o M with PMH DM II, CKD III, spinal stenosis seen in medical consultation. Patient with history of L2-L3 decompression and fusion in 12/04/[address] Castro. Patient has been having increased low back pain and left leg pain with paresthesias. He is followed outpatient with Dr. Castro and was found to have loosening of hardware. Dr. Castro has admitted patient to hospital for pain control and planned procedure. Patient has been made n.p.o. midnight. Patient states when pain is severe he will have nausea and some chills. Denies fever, diaphoresis, N/V/D/C, loss control bowel or bladder, [place], dizziness, syncope, vision changes, neck pain, CP, SOB, orthopnea, palpitations, cough, sore throat, choking, otalgia, rhinorrhea, abdominal pain, extremity weakness, extremity edema, rashes, urinary symptoms. Allergies Allergy/AdvReac Type Severity Reaction Status Date / Time No Known Allergies Allergy Verified 03/04/21 09:55 Home Medications Medication Instructions Recorded Confirmed Type acetaminophen 500 mg capsule 500 - 1,000 mg PO BID 11/08/20 03/04/21 History aspirin 81 mg tablet,delayed 81 mg PO QAM 11/08/20 03/04/21 History release cetirizine 10 mg tablet (Zyrtec) 10 mg PO QAM 11/08/20 03/04/21 History cyanocobalamin (vitamin B-12) 2,000 mcg PO QAM 11/08/20 03/04/21 History 2,000 mcg tablet linagliptin 5 mg tablet (Tradjenta) 5 mg PO QAM 11/08/20 03/04/21 History metformin 500 mg tablet 500 mg PO BID 11/08/20 03/04/21 History multivitamin 1 tab PO QAM 11/08/20 03/04/21 History tramadol 50 mg tablet 50 mg PO Q6H PRN #30 tab 12/02/20 03/04/21 Rx tamsulosin 0.4 mg capsule (Flomax) 0.4 mg PO DAILY #30 cap 12/11/20 03/04/21 Rx Patient History Medical History Aneurysm "3 ANEURYSMS"- F/U DR HOSSEIN LEW ANNUALLY-NO CHANGES-PT NOT SURE AWARE OF LOCATIONS Per cardo records "AAA, 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" Chronic back pain CKD stage 3 due to type 2 diabetes mellitus Diabetes mellitus, type 2 Glucose stable First degree AV block Kidney stones HX Sleep apnea "SLEEPS SITTING UP"-DUE TO BACK ISSUES-QUIT USING HIS CPAP YRS AGO Spinal stenosis Spondylolisthesis Vitamin B12 deficiency Vitamin D deficiency Surgical History History of cataract surgery History of colonoscopy History of cystoscopy WITH STENT FOR STONES History of surgical removal of pilonidal cyst History of total hip arthroplasty R/L Family History Brother Family history of diabetes mellitus Diabetes Blood disorder Brother Family history of diabetes mellitus Colorectal cancer Diabetes Mother Family hx of colon cancer Colorectal cancer Father Heart disease Sister Coronary heart disease COPD (chronic obstructive pulmonary disease) Social History Smoking Status: Never smoker Second Hand Exposure: No; Do You Dip or Chew Tobacco: No; Tobacco Cessation Education Requested by Patient: No Hx Alcohol Use: No Hx Substance Use: No Preferred Language: Occitan Communication Ability: Effective Drupal Php Developer Required: No Beliefs That Will Affect Care: None marital status: Current Living Situation: Spouse Current Living Situation Comment: Own home current occupational status: other 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 Other Information That Helps Us Care for You: No Feels Safe at Home: Yes Safety Concerns: Feels Safe At This Time Assistive Devices: None Review of Systems Review of Systems: All systems reviewed & are unremarkable except as noted in HPI & below Physical Exam Physical Exam: General: mild distress secondary to pain, WDWN Head: normocephalic, atraumatic Eyes: conjunctiva non-injected, anicteric ENT: normal inspection external ears, nose, mucous membranes moist Neck: supple, trachea midline Lungs: clear, no respiratory distress, no wheezing/rhonchi/rales CV: RRR, no murmur, no pretibial edema Abd: normal BS, soft, non-tender Ext: no cyanosis, no calf tenderness, pedal pushes and pulls intact bilaterally, distal pulses intact bilaterally, sensation to light touch intact Neuro: A&O x 3, no focal deficits noted, normal affect Skin: warm, dry Results & Data ([facility]) Vital Signs (Past 12 Hours) Vital Signs Temp Pulse Pulse Resp BP BP Pulse Ox 03/04/21 16:38 36.7 C 76 18 146/66 H 97 03/04/21 16:14 79 18 111/89 98 03/04/21 13:30 68 13 114/66 95 03/04/21 13:20 70 15 97 03/04/21 13:10 67 16 96 03/04/21 13:00 69 21 111/62 97 03/04/21 12:50 69 17 95 03/04/21 12:40 70 16 96 03/04/21 12:30 71 16 104/58 L 96 03/04/21 12:20 81 14 03/04/21 12:10 74 16 96 03/04/21 12:00 73 15 03/04/21 11:50 75 19 03/04/21 11:40 73 20 03/04/21 11:30 70 12 118/70 96 03/04/21 11:20 66 9 L 96 03/04/21 11:10 65 6 L 97 03/04/21 11:01 70 16 134/76 97 03/04/21 11:00 72 14 134/76 92 03/04/21 10:50 13 95 03/04/21 10:40 15 96 03/04/21 10:30 15 110/68 98 03/04/21 10:20 72 16 96 03/04/21 10:10 90 19 91 03/04/21 10:00 70 7 L 123/66 90 03/04/21 09:50 75 17 90 03/04/21 09:40 77 16 97 03/04/21 09:30 78 19 110/68 95 03/04/21 09:27 76 19 97 03/04/21 08:38 37.1 C 86 18 127/65 99 Laboratory Results Short CBC 03/04/21 Range/Units 09:19 WBC 8.41 (4.8-10.8) K/uL Hgb 12.4 L (14.0-18.0) g/dL Hct 38.3 L (42-52) % Plt Count 159 (130-400) K/uL BMP 03/04/21 09:19 Sodium 133 L Potassium 4.2 Chloride 102 Carbon Dioxide 23 BUN 21 H Creatinine 1.46 H Glucose 203 H Calcium 9.4 Diagnostic Findings Chest X-Ray 03/04/21 08:52 XR chest 1V portable HISTORY: 80 years-old Male preop preoperative exam. COMPARISON: Chest radiographs 11/17/2020 TECHNIQUE: Portable AP view of the chest FINDINGS: The cardiomediastinal and hilar silhouettes are within normal limits. No pneumothorax, pleural effusion, airspace consolidation or overt pulmonary edema. Unchanged ill-defined opacities of the lateral left upper lung. Degenerative changes of the shoulders and spine. IMPRESSION: No acute process. ACT 112: Negative or not required by law. The above report was generated using voice recognition software. It may contain grammatical, syntax or spelling errors. Electronically signed by: Tomás Ellis M.D. 03/04/2021 9:14 AM
[2021-03-04] MEDS: HYDROmorphone INJ 1 MG/ML SYRINGE IV PRN ×2 (17:26→20:49)
[2021-03-04] MEDS: oxyCODONE HCL IR 5 MG TAB (IMMEDIATE RELEASE) PO PRN ×2 (18:47→22:54)
[2021-03-04] MEDS: traMADol HCL 50 MG TABLET PO PRN (19:48)
[2021-03-04] MEDS: INSULIN GLARGINE SOLOSTAR 100 UNITS/ML 3 ML PEN SC SCH (20:57)
[2021-03-04] MEDS ORDERED: INSULIN ASPART PER UNIT SC SCH (21:00)
[2021-03-05] MEDS: HYDROmorphone INJ 1 MG/ML SYRINGE IV PRN ×2 (01:06→07:24)
[2021-03-05] MEDS ORDERED: ceFAZolin 2000MG 2,000 MG/15 ML SYR IV SCH (06:00)
[2021-03-05] MEDS: INSULIN ASPART PER UNIT SC SCH ×3 (06:02→18:26)
[2021-03-05] MEDS: SODIUM CHLORIDE 0.9% 1000ML 1,000 ML IV SCH (07:29)
--- NOTE | 2021-03-05 07:52 | History & Physical Bridge Note ---
Date of Service March 05, 2021 History & Physical Bridge Note I have examined the patient, reviewed the History & Physical and in the interval since the performance of the History & Physical I have noted the following changes of clinical significance: no changes noted Patient continues to have steady decline in status with worsening left leg pain and progressive weakness. Secondary to gross loosening of instrumentation patient's decline recommending emergent revision decompression and fusion L4-L5.
--- NOTE | 2021-03-05 08:49 | Anesthesiology Consultation ---
Date of Service March 05, 2021 Assessment & Plan (1) Encounter for pre-operative examination: Chart Review Chart Review: Acceptable Risk for Surgery History Surgery Operation Date: 03/05/21 10:05 Proposed Procedures p Revision Decompression Fusion L4-L5 - Bismark Castro DO Height/Weight Height: 5 ft 9 in Weight: 97 kg Allergies Allergy/AdvReac Type Severity Reaction Status Date / Time No Known Allergies Allergy Verified 03/04/21 09:55 Medications Home Medications Medication Instructions Recorded Confirmed Last Taken acetaminophen 500 mg capsule 500 - 1,000 mg PO BID 11/08/20 03/04/21 11/30/20 19:00 aspirin 81 mg tablet,delayed 81 mg PO QAM 11/08/20 03/04/21 03/03/21 release cetirizine 10 mg tablet (Zyrtec) 10 mg PO QAM 11/08/20 03/04/21 03/03/21 cyanocobalamin (vitamin B-12) 2,000 mcg PO QAM 11/08/20 03/04/21 11/27/20 09:00 2,000 mcg tablet linagliptin 5 mg tablet (Tradjenta) 5 mg PO QAM 11/08/20 03/04/21 03/03/21 metformin 500 mg tablet 500 mg PO BID 11/08/20 03/04/21 03/03/21 multivitamin 1 tab PO QAM 11/08/20 03/04/21 03/03/21 tramadol 50 mg tablet 50 mg PO Q6H PRN #30 tab 12/02/20 03/04/21 03/03/21 tamsulosin 0.4 mg capsule (Flomax) 0.4 mg PO DAILY #30 cap 12/11/20 03/04/21 03/03/21 Active Medications Generic Name Dose Route Start Last Admin Trade Name Freq PRN Reason Stop Dose Admin Hydromorphone HCl 1 mg 03/04/21 16:33 03/05/21 07:24 Hydromorphone Inj 1 Mg/Ml Syringe IV 03/18/21 16:32 1 mg Q3H PRN Administration severe pain (scale 7-10) Hydroxyzine HCl 25 mg 03/04/21 16:33 03/05/21 00:18 Hydroxyzine Hcl 25 Mg Tab PO 04/03/21 16:32 25 mg Q8H PRN Administration Anxiety Sodium Chloride 1,000 mls @ 75 mls/hr 03/04/21 16:33 03/05/21 07:29 Nss 1000ml IV 04/03/21 16:32 75 mls/hr .[id number] AFTAB Administration Insulin Aspart 0 units 03/05/21 06:00 03/05/21 06:02 Insulin Aspart Per Unit SC 04/04/21 05:59 1 units Q6 AFTAB Administration Insulin Glargine 0 - 10 units 03/04/21 21:00 03/04/21 20:57 Insulin Glargine Solostar 100 Units/Ml 3 Ml Pen SC 04/03/21 20:59 5 units BID AFTAB Administration Protocol Lorazepam 0.5 mg 03/04/21 16:33 03/04/21 20:17 Lorazepam 0.5 Mg Tab PO 04/03/21 16:32 0.5 mg Q8H PRN Administration sedation/anxiety Oxycodone HCl 5 - 10 mg 03/04/21 16:33 03/04/21 22:54 Oxycodone Hcl Ir 5 Mg Tab (Immediate Release) PO 03/18/21 16:32 10 mg Q4H PRN Administration mod to severe pain Tramadol HCl 50 - 100 mg 03/04/21 16:33 03/04/21 19:48 Tramadol Hcl 50 Mg Tablet PO 04/03/21 16:32 100 mg Q4H PRN Administration Moderate-Severe pain & Pre PT Past Medical History Medical History Aneurysm "3 ANEURYSMS"- F/U DR HOSSEIN LEW ANNUALLY-NO CHANGES-PT NOT SURE AWARE OF LOCATIONS Per cardo records "AAA, 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" Chronic back pain CKD stage 3 due to type 2 diabetes mellitus Diabetes mellitus, type 2 Glucose stable First degree AV block Kidney stones HX Sleep apnea "SLEEPS SITTING UP"-DUE TO BACK ISSUES-QUIT USING HIS CPAP YRS AGO Spinal stenosis Spondylolisthesis Vitamin B12 deficiency Vitamin D deficiency Past Family History Family History Brother Family history of diabetes mellitus Diabetes Blood disorder Brother Family history of diabetes mellitus Colorectal cancer Diabetes Mother Family hx of colon cancer Colorectal cancer Father Heart disease Sister Coronary heart disease COPD (chronic obstructive pulmonary disease) Past Surgical History Surgical History History of cataract surgery History of colonoscopy History of cystoscopy WITH STENT FOR STONES History of surgical removal of pilonidal cyst History of total hip arthroplasty R/L Social History Smoking Status: Never smoker Do You Dip or Chew Tobacco: No Hx Alcohol Use: No Hx Substance Use: No substance use type: prescription drug Physical Exam Vital Signs Last Vital Signs Temp 37.0 C 03/05/21 07:43 Pulse 85 03/05/21 07:43 Resp 18 03/05/21 07:43 BP 129/76 03/05/21 07:43 Pulse Ox 96 03/05/21 07:43 Testing Laboratory Results 03/04/21 09:19 03/04/21 09:19 PT 10.6 Seconds (9.0-12.0) 03/04/21 09:19 INR 1.0 (0.9-1.1) 03/04/21 09:19 APTT 26.6 Seconds (21.0-31.0) 03/04/21 09:19 03/05/21 03/04/21 05:50 20:47 POC Glucose 167 H 163 H Electrocardiogram Date: 03/04/21 Findings: + NSR @ (76) Chest X-Ray Date: 03/04/21 Findings: + NAD
[2021-03-05] MEDS ORDERED: DEXAMETHASONE SOD INJ 4 MG/ML VIAL ONE ×2 (09:54→11:17)
[2021-03-05] MEDS ORDERED: ROCURONIUM BROMIDE 10 MG/ML 5 ML VIAL IV ONE ×2 (09:54→11:16)
[2021-03-05] MEDS ORDERED: ONDANSETRON INJ 2 MG/ML 2 ML VIAL ONE (09:54)
[2021-03-05] MEDS ORDERED: fentaNYL citrate 100 MCG/2 ML VIAL ONE (09:54)
[2021-03-05] MEDS ORDERED: LIDOCAINE 2% 2 ML VIAL/AMP(20MG/ML) INFIL ONE (09:54)
[2021-03-05] MEDS ORDERED: PROPOFOL IV EMULSION 10 MG/ML 20 ML VIAL IV ONE (09:54)
[2021-03-05] MEDS: ASPIRIN 81 MG ECTAB PO SCH (10:10)
[2021-03-05] MEDS: CETIRIZINE HCL 10 MG TABLET PO SCH (10:10)
[2021-03-05] MEDS: TAMSULOSIN HCL 0.4 MG CAP PO SCH (10:11)
[2021-03-05] MEDS: INSULIN GLARGINE SOLOSTAR 100 UNITS/ML 3 ML PEN SC SCH ×2 (10:11→20:47)
[2021-03-05] MEDS: MULTIVITAMIN TAB PO SCH (10:11)
[2021-03-05] MEDS ORDERED: BUPIVACAINE 0.5 % 5 MG/1 ML MPF 30ML VIAL ONE (10:25)
[2021-03-05] MEDS ORDERED: EPINEPHrine INJ 1 MG/ML AMP ONE (10:25)
[2021-03-05] MEDS ORDERED: ONDANSETRON INJ 2 MG/ML 2 ML VIAL IV PRN ×2 (10:28→13:55)
[2021-03-05] MEDS ORDERED: HYDROmorphone INJ 1 MG/ML SYRINGE IV PRN ×2 (10:28→13:55)
[2021-03-05] MEDS ORDERED: ATROPINE SULFATE 0.1 MG/ML 10ML SYR IV PRN (10:28)
[2021-03-05] MEDS ORDERED: PHENYLEPHRINE HCL 10 MG/ML VIAL ONE (11:16)
[2021-03-05] MEDS ORDERED: ePHEDrine sulfate 50 MG/ML SYR ONE (11:17)
[2021-03-05] MEDS ORDERED: PHENYLEPHRINE 100MCG/ML 5ML SYR ONE (11:35)
[2021-03-05] MEDS ORDERED: FLOSEAL HEMOSTATIC MATRIX 10ML TOP ONE (11:56)
[2021-03-05] MEDS ORDERED: SUGAMMADEX SODIUM 200 MG/2 ML VIAL IV ONE (12:26)
--- NOTE | 2021-03-05 12:37 | Operative Report ---
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 #2 revision decompression L4-L5. #3 revision interbody cage. #4 posterior spinal fusion L5-S1. #5 placement of posterior instrumentation from L2-S1. #6 placement she is collagen sponge, master graft in the posterior lateral gutters. Surgeon Bismark Castro, Photocopy Operator Esther Wright Estimated Blood Loss 150 Findings Consistent with Post-Op Diagnosis Specimens None Indications This is an 80-year-old male who presents with significant decline in status over the past several days and evidence of hardware failure secondary to osteoporosis. Secondary to gross instability secondary to hardware failure and neurologic decline requires emergent revision to avoid permanent deficit. Description of Procedure Patient was met with identified informed consent obtained. Patient was then taken to the operative suite underwent ablation placed in a prone position on a Luis table top of the Ryan frame. All bony promises well-padded eyes inspected to ensure no external pressure placed upon the bed at this point the lumbar spine was prepped and draped in a sterile fashion. Sharp dissection with the assistance of Bovie cartilage from down to and exposing the instrumentation from L2-L5 as well as the lamina and sacral ala of L5 and S1. And proceeded move the end caps and clint. Noted evidence of marked loosening of the L5 pedicle screws all screws were tested and determined to be well fixed. Pedicle screws were removed without difficulty. I then performed revision decompression L4-5 bilateral foraminotomies. Explored to ensure no bony fragments within the foramen. I then identified the posterior migrated interbody cage at L4-5 on the right. I was able to tamp the cage into an anterior medial position for much better placement. I then replaced the pedicle screws at L5 and placed new screws at S1 bilaterally both with supplemental bony cement for additional fixation in the grossly osteoporotic bone. The screws demonstrate excellent alignment and fixation when tested. New clint was then contoured and locked in position bilaterally. Transverse processes of L5 and the sacrum were then burred to subcortically bone. Infuse collagen sponge master graft and was placed in the posterior gutters. 15 round WILDA drain inserted. The incision was then closed with 1 Vicryl to fascia 2-0 Vicryl subcutaneously and 4 Monocryl for final skin closure. Steri-Strips dressings placed. Patient will continue PACU stable condition. Please note spinal cord monitoring was utilized at the procedure no changes noted. Lastly Esther Wright was present at the entire surgery and while the patient positioning complex portions of the surgery and final skin closure. I attest to the content of the Intraoperative Record and any orders documented therein. Any exceptions are noted below.
--- NOTE | 2021-03-05 12:52 | Fluoroscopy Report ---
FL lumbar spine 2-3V HISTORY: 80 years-old Male L4-5 REVISION/DECOMPRESSION/FUSION COMPARISON: Lumbar spine CT 02/28/2021 TECHNIQUE: 4 spot fluoroscopic images of the lumbar spine were obtained utilizing 55 seconds of fluor oscopy time FINDINGS: Posterior interbody clint and screw fusion hardware is in noted involving the L2-S1 levels with L3-L4 a nd L4-L5 discectomy changes. The hardware appears intact. Partially imaged hip arthroplasty hardware. IMPRESSION: Fluoroscopic assistance as above. ACT 112: Negative or not required by law. The above report was generated using voice recognition software. It may contain grammatical, syntax o r spelling errors. Electronically signed by: Tomás Ellis M.D. 03/05/2021 12:50 PM
--- NOTE | 2021-03-05 13:39 | Anesthesiology Progress Note ---
Date of Service March 05, 2021 Anesthesia Post Procedure Vital Signs Vital Signs: Temp Pulse Pulse Resp BP BP Pulse Ox 03/05/21 13:30 36.4 C L 94 H 9 L 131/68 91 03/05/21 13:20 36.4 C L 94 H 12 119/65 91 03/05/21 13:10 94 H 13 118/58 L 91 03/05/21 13:00 91 H 15 127/76 100 03/05/21 12:51 36.6 C 88 14 123/70 99 03/05/21 10:00 36.8 C 85 18 139/75 96 03/05/21 07:43 37.0 C 85 18 129/76 96 03/04/21 21:50 37.1 C 80 16 138/76 94 03/04/21 17:43 36.7 C 92 H 18 146/66 H 97 03/04/21 16:38 36.7 C 76 18 146/66 H 97 03/04/21 16:14 79 18 111/89 98 Pain Intensity Bilateral Leg: Pain Intensity: 9 Back: Pain Intensity: 0 Transfer of Care Handoff Completed per policy Notes Mental Status: alert / awake / arousable Patient Amnestic to Procedure: Yes Nausea / Vomiting: adequately controlled Pain: adequately controlled Airway Patency, RR, SpO2: stable & adequate BP & HR: stable & adequate Hydration State: stable & adequate Anesthetic Complications: no major complications apparent
[2021-03-05] MEDS ORDERED: LORazepam 0.5 MG/1 ML VIAL IV PRN (13:55)
[2021-03-05] MEDS ORDERED: oxyCODONE HCL IR 5 MG TAB (IMMEDIATE RELEASE) PO PRN (13:55)
[2021-03-05] MEDS ORDERED: PROMETHAZINE HCL 12.5 MG in SODIUM CHLORIDE 0.9% 50 ML IV PRN (13:55)
[2021-03-05] MEDS ORDERED: FAMOTIDINE 20 MG TAB PO PRN (13:55)
[2021-03-05] MEDS ORDERED: HYDROmorphone INJ 0.5 MG/0.5 ML SYR IV PRN (13:55)
[2021-03-05] MEDS ORDERED: DO NOT ADMINISTER PNEUMOCOCCAL VACCINE PRN (13:55)
[2021-03-05] MEDS ORDERED: MAGNESIUM HYDROXIDE SUSP 30 ML UDC PO PRN (13:55)
[2021-03-05] MEDS ORDERED: diphenhydrAMINE Capsule 25 MG CAP PO PRN (13:55)
[2021-03-05] MEDS ORDERED: DO NOT ADMINISTER FLU VACCINE PRN (13:55)
[2021-03-05] MEDS ORDERED: SOD PHOSPHATE/SOD BIPHOSPHATE ENEMA 132 ML BTL PR PRN (13:55)
[2021-03-05] MEDS ORDERED: METOCLOPRAMIDE HCL INJ 5 MG/ML 2 ML VIAL IV PRN (13:55)
[2021-03-05] MEDS ORDERED: ACETAMINOPHEN 500 MG TAB PO PRN (13:55)
[2021-03-05] MEDS ORDERED: bisacodyL 10 MG SUPP PR PRN (13:55)
[2021-03-05] MEDS ORDERED: ALUMINUM/MAGNESIUM SUSP 30 ML UDC PO PRN (13:55)
[2021-03-05] MEDS ORDERED: ONDANSETRON 4 MG OD TAB PO PRN (13:55)
[2021-03-05] MEDS ORDERED: ACETAMINOPHEN 1,000 MG/100 ML VIAL IV PRN (13:55)
[2021-03-05] MEDS ORDERED: LORazepam 0.5 MG TAB PO PRN (13:55)
[2021-03-05] MEDS ORDERED: traMADol HCL 50 MG TABLET PO PRN (13:55)
[2021-03-05] MEDS ORDERED: NALOXONE HCL 0.4 MG/1 ML VIAL/CARP IV PRN (13:55)
[2021-03-05] MEDS ORDERED: hydrOXYzine HCl 25 MG TAB PO PRN (13:55)
--- NOTE | 2021-03-05 18:47 | Hospitalist Progress Note ---
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 Castro. S/P lumbar surgery POD #0 Pain management, DVT Px per ortho Monitor for postop anemia Bowel regimen to prevent constipation Incentive Spirometry (3) Diabetes mellitus, type 2: Plan: A1c: 8.0 11/2020 Diabetic diet Hold home medication Basal bolus insulin per protocol (4) CKD (chronic kidney disease), stage III: Plan: Cr: 1.46. Baseline Cr: 1.4-1.6 Monitor renal functions Avoid nephrotoxic agents when possible DVT Px: As per ortho Code Status Full Code Admission and Anticipated Discharge Date Admission Date: March 04, 2021 Subjective Patient is seen and examined bedside Patient had back surgery today He is drowsy during my encounter States having back pain at surgical site Denies any chest pain, dyspnea Also reports having nausea but no vomiting Review of Systems Review of Systems: All systems reviewed & are unremarkable except as noted in Subjective Physical Exam Physical Exam: Physical Exam: Vitals signs as noted above General Appearance:Moderately built and nourished, no apparent distress Head: normocephalic, Atraumatic Eyes: normal inspection, EOMI Neck: supple, Trachea midline Respiratory/Chest: Normal breath sounds, CTA Cardiovascular: S1, S2, No murmur Abdomen/GI:Soft, Non tender, Bowel sounds present Back: Surgical site in dressing Extremities/Musculoskeletal:normal inspection, no edema Neurologic/Psych:AA, grossly no focal neurological deficits Skin: normal color, warm Results & Data Results & Data ([facility]) Vital Signs (Past 12 Hours) Vital Signs Temp Pulse Resp BP BP Pulse Ox 03/05/21 17:51 36.4 C L 105 H 14 134/79 95 03/05/21 15:40 36.6 C 105 H 16 153/75 H 93 03/05/21 14:53 36.7 C 102 H 12 155/80 H 93 03/05/21 14:25 36.7 C 97 H 16 128/81 94 03/05/21 13:50 36.6 C 93 H 12 139/74 92 03/05/21 13:30 36.4 C L 94 H 9 L 131/68 91 03/05/21 13:20 36.4 C L 94 H 12 119/65 91 03/05/21 13:10 94 H 13 118/58 L 91 03/05/21 13:00 91 H 15 127/76 100 03/05/21 12:51 36.6 C 88 14 123/70 99 03/05/21 10:00 36.8 C 85 18 139/75 96 03/05/21 07:43 37.0 C 85 18 129/76 96
[2021-03-05] MEDS: DOCUSATE SODIUM/SENNA 50/8.6MG TAB PO SCH (20:33)
[2021-03-05] MEDS: oxyCODONE HCL IR 5 MG TAB (IMMEDIATE RELEASE) PO PRN (20:34)
[2021-03-05] MEDS: ceFAZolin 2000MG 2,000 MG/15 ML SYR IV SCH (20:38)
[2021-03-05] MEDS: LACTATED RINGER'S 1,000 ML IV SCH ×2 (22:33→23:38)
[2021-03-05] MEDS: traMADol HCL 50 MG TABLET PO PRN (23:37)
[2021-03-06] MEDS ORDERED: Nursing to Pharmacy Communication SCH (01:00)
[2021-03-06] MEDS: INSULIN ASPART PER UNIT SC SCH ×5 (01:01→21:32)
[2021-03-06] MEDS: ceFAZolin 2000MG 2,000 MG/15 ML SYR IV SCH (03:44)
[2021-03-06] MEDS: POLYETHYLENE (MIRALAX) 17 GM PACK PO SCH ×3 (05:34→17:49)
[2021-03-06 08:06] LABS: Eosinophils # (auto) 0.02 K/uL (0-0.5); Eosinophils % (auto) 0.3 %; Hematocrit (blood only) 32.8 % (42-52); Hemoglobin 10.5 g/dL (14.0-18.0); Immature Granulocytes # (auto) 0.01 K/uL (0.00-0.02); Immature Granulocytes % (auto) 0.1 %; Lymphocytes # (auto) 0.89 K/uL (1.2-3.4); Lymphocytes % (auto) 11.4 %; Mean Corpuscular Hemoglobin 27.8 pg (25-34); Mean Corpuscular Volume 86.8 fL (80-100); Mean Platelet Volume 10.3 fL (7.4-10.4); Monocytes # (auto) 0.93 K/uL (0.11-0.59); Neutrophils # (auto) 5.93 K/uL (1.4-6.5); Neutrophils % (auto) 76.2 %; Platelet Count 169 K/uL (130-400); RDW Coefficient of Variation 14.2 % (11.5-14.5); RDW Standard Deviation 45.1 fL (36.4-46.3); Red Blood Count 3.78 M/uL (4.7-6.1); White Blood Count 7.78 K/uL (4.8-10.8)
[2021-03-06 08:53] LABS: BUN Creatinine Ratio 13.5 (10-20); Calcium 8.9 mg/dl (8.5-10.1); Creatinine Clr Calc Pharmacy 46.4 ml/min; Est GFR (African American) 53.4 ml/min; Est GFR (Non-African American) 46.1 ml/min; Potassium 4.1 mmol/L (3.5-5.1)
[2021-03-06] MEDS: MULTIVITAMIN TAB PO SCH (09:00)
[2021-03-06] MEDS: ASPIRIN 81 MG ECTAB PO SCH (09:00)
[2021-03-06] MEDS: dexAMETHasone 6 MG in SYRINGE 0 ML IV SCH (09:00)
[2021-03-06] MEDS: CETIRIZINE HCL 10 MG TABLET PO SCH (09:00)
[2021-03-06] MEDS: TAMSULOSIN HCL 0.4 MG CAP PO SCH (09:00)
[2021-03-06] MEDS: INSULIN GLARGINE SOLOSTAR 100 UNITS/ML 3 ML PEN SC SCH ×3 (09:02→21:31)
[2021-03-06] MEDS: SODIUM CHLORIDE 0.9% 1000ML 1,000 ML IV SCH (09:52)
[2021-03-06] MEDS ORDERED: bisacodyL 10 MG SUPP PR PRN (10:37)
--- NOTE | 2021-03-06 12:04 | Orthopedic Progress Note ---
Date of Service March 06, 2021 Assessment & Plan (1) Loosening of hardware in spine: Plan: At this time I am going to initiate physical therapy monitor his WILDA output hopefully discharge home in the next day or so. Admission and Anticipated Discharge Date Admission Date: March 04, 2021 Subjective Patient's back pain and leg symptoms are markedly improved. Physical Exam Physical Exam: Patient is in the chair at bedside. He appears very comf ortable. Is excellent strength testing. Results & Data ([facility]) Vital Signs (Past 12 Hours) Vital Signs Temp Pulse Resp BP Pulse Ox 03/06/21 07:49 37.4 C 87 20 120/74 95
--- NOTE | 2021-03-06 19:33 | Hospitalist Progress Note ---
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 Castro. S/P lumbar surgery POD #1 Postoperative anemia Pain management, DVT Px per ortho Monitor CBC Bowel regimen to prevent constipation Incentive Spirometry PT/OT Likely plan to be discharged tomorrow as per Ortho (3) Diabetes mellitus, type 2: Plan: A1c: 8.0 11/2020 Diabetic diet Hold home medication Basal bolus insulin per protocol (4) CKD (chronic kidney disease), stage III: Plan: Cr: 1.46. Baseline Cr: 1.4-1.6 Monitor renal functions Avoid nephrotoxic agents when possible Creatinine 1.4 today DVT Px: As per ortho Code Status Full Code Admission and Anticipated Discharge Date Admission Date: March 04, 2021 Subjective Patient is seen and examined at bedside Sitting in chair during my encounter States having 5/10 back pain Otherwise no complaints Denies any chest pain, shortness of breath, dizziness, nausea, abdominal pain Review of Systems Review of Systems: All systems reviewed & are unremarkable except as noted in Subjective Physical Exam Physical Exam: Physical Exam: Vitals signs as noted above General Appearance:Moderately built and nourished, no apparent distress Head: normocephalic, Atraumatic Eyes: normal inspection, EOMI Neck: supple, Trachea midline Respiratory/Chest: Normal breath sounds, CTA Cardiovascular: S1, S2, No murmur Abdomen/GI:Soft, Non tender, Bowel sounds present Back: Surgical site in dressing Extremities/Musculoskeletal:normal inspection, no edema Neurologic/Psych:AA, grossly no focal neurological deficits Skin: normal color, warm Results & Data Results & Data ([facility]) Vital Signs (Past 12 Hours) Vital Signs Temp Pulse Resp BP Pulse Ox 03/06/21 15:56 37 C 100 H 20 124/76 97 03/06/21 12:12 37 C 88 20 122/70 93 03/06/21 07:49 37.4 C 87 20 120/74 95 Laboratory Results Short CBC 03/06/21 Range/Units 07:09 WBC 7.78 (4.8-10.8) K/uL Hgb 10.5 L (14.0-18.0) g/dL Hct 32.8 L (42-52) % Plt Count 169 (130-400) K/uL BMP 03/06/21 07:09 Sodium 133 L Potassium 4.1 Chloride 102 Carbon Dioxide 23 BUN 19 H Creatinine 1.41 H Glucose 175 H Calcium 8.9
[2021-03-06] MEDS: DOCUSATE SODIUM/SENNA 50/8.6MG TAB PO SCH (21:33)
[2021-03-07] MEDS: POLYETHYLENE (MIRALAX) 17 GM PACK PO SCH ×3 (00:16→11:30)
[2021-03-07] MEDS: MULTIVITAMIN TAB PO SCH (08:34)
[2021-03-07] MEDS: ASPIRIN 81 MG ECTAB PO SCH (08:35)
[2021-03-07] MEDS: TAMSULOSIN HCL 0.4 MG CAP PO SCH (08:36)
[2021-03-07] MEDS: CETIRIZINE HCL 10 MG TABLET PO SCH (08:36)
[2021-03-07] MEDS: dexAMETHasone 6 MG in SYRINGE 0 ML IV SCH (08:38)
[2021-03-07 08:41] LABS: BUN Creatinine Ratio 17.3 (10-20); Calcium 8.7 mg/dl (8.5-10.1); Creatinine Clr Calc Pharmacy 47.8 ml/min; Est GFR (African American) 55.3 ml/min; Est GFR (Non-African American) 47.7 ml/min; Potassium 3.8 mmol/L (3.5-5.1)
[2021-03-07 08:45] LABS: Hematocrit (blood only) 30.5 % (42-52); Hemoglobin 9.8 g/dL (14.0-18.0); Mean Corpuscular Hgb Conc 32.1 g/dL (32-36); Mean Corpuscular Volume 87.1 fL (80-100); Mean Platelet Volume 10.8 fL (7.4-10.4); Platelet Count 161 K/uL (130-400); RDW Coefficient of Variation 14.5 % (11.5-14.5); RDW Standard Deviation 46.5 fL (36.4-46.3)
--- NOTE | 2021-03-07 08:47 | Hospitalist Progress Note ---
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 Castro. S/P lumbar surgery POD #2 Postoperative anemia Pain management, DVT Px per ortho Monitor CBC Bowel regimen to prevent constipation Incentive Spirometry PT/OT Discharge to home today (3) Diabetes mellitus, type 2: Plan: A1c: 8.0 11/2020 Diabetic diet Hold home medication Basal bolus insulin per protocol (4) CKD (chronic kidney disease), stage III: Plan: Cr: 1.46. Baseline Cr: 1.4-1.6 Monitor renal functions Avoid nephrotoxic agents when possible Creatinine 1.37 today DVT Px: As per ortho Code Status Full Code Admission and Anticipated Discharge Date Admission Date: March 04, 2021 Supervising Physician Co-Signing Physician Notes Attending addendum: The patient was seen and examined in medical floor She is a status post revision decompression and fusion in L4-5 She has been stable and will be going home this afternoon On examination Sitting on a chair without any acute distress Hemodynamically stable Chest-clear to auscultate bilaterally Heart-S1, S2 regular Abdomen-benign Extremities-negative for any edema [employer]-alert, awake and oriented His labs and imaging studies reviewed Medically stable to be discharged Agree with assessment and plan as outlined above by Valeria Sotelo Subjective Patient was seen and examined in room 383-1. Follow-up lumbar surgery by Dr. Castro. "I finally had a bowel movement." "I never thought I would be so happy to move my bowels." He feels well this morning and is planning to be discharged. He denies any significant pain. He denies fever, chills, sweats, lightheadedness, dizziness, chest pain, shortness breath, nausea, vomiting. He has been up and ambulating. Review of Systems Review of Systems: All systems reviewed & are unremarkable except as noted in HPI & below Physical Exam Physical Exam: Gen: WD/WN, sitting up in bedside chair, NAD, A&O x3 HEENT: Normocephalic, atraumatic, conjunctivae moist, sclerae anicteric, mucous membranes moist. Lung: Clear to Auscultation bilaterally, no wheezes/rales/rhonchi Heart: Regular rate, regular rhythm, no murmurs, rubs, or gallops Abdomen: Soft, NT, ND +BS x 4 Extremities: No edema Skin: Warm, no rash, negative turgor. Results & Data Results & Data ([facility]) Vital Signs (Past 12 Hours) Vital Signs Temp Pulse Resp BP Pulse Ox 03/07/21 07:19 18 143/58 H 97 03/07/21 03:44 37.2 C 101 H 14 146/82 H 94 03/06/21 22:56 36.8 C 87 14 107/73 99 Laboratory Results Short CBC 03/07/21 Range/Units 07:07 WBC 7.60 (4.8-10.8) K/uL Hgb 9.8 L (14.0-18.0) g/dL Hct 30.5 L (42-52) % Plt Count 161 (130-400) K/uL BMP 03/06/21 03/07/21 07:09 07:07 Sodium 133 L 134 L Potassium 4.1 3.8 Chloride 102 102 Carbon Dioxide 23 22 BUN 19 H 24 H Creatinine 1.41 H 1.37 Glucose 175 H 164 H Calcium 8.9 8.7 Medications Administered Current Inpatient Medications Acetaminophen (Acetaminophen 500 Mg Tab) 1,000 mg PO Q8H PRN PRN Reason: MILD Pain Scale 1,2,3 & Pre PT Stop: 04/03/21 16:32 Al Hydrox/Mg Hydrox/Simethicone (Aluminum/Magnesium Susp 30 Ml Udc) 30 ml PO Q6H PRN PRN Reason: Dyspepsia Stop: 04/03/21 16:32 Aspirin (Aspirin 81 Mg Ectab) 81 mg PO [facility] Stop: 04/04/21 08:59 Last Admin: 03/07/21 08:35 Dose: 81 mg Documented by: Bisacodyl (Bisacodyl 10 Mg Supp) 10 mg VA DAILY PRN PRN Reason: Constipation Stop: 04/05/21 10:36 Cetirizine HCl (Cetirizine Hcl 10 Mg Tablet) 10 mg PO [facility] Stop: 04/04/21 08:59 Last Admin: 03/07/21 08:36 Dose: 10 mg Documented by: Dextrose (Dextrose 50% 50 Ml Syringe) 25 - 50 ml IV UD PRN; Protocol PRN Reason: Hypoglycemia Protocol Stop: 04/03/21 17:06 Diphenhydramine HCl (Diphenhydramine Capsule 25 Mg Cap) 25 mg PO Q6H PRN PRN Reason: Allergic Rhinitis/Insomnia Stop: 04/03/21 16:32 Famotidine (Famotidine 20 Mg Tab) 20 mg PO Q12H PRN PRN Reason: Dyspepsia Stop: 04/04/21 13:54 Glucagon (Glucagon For Inj 1 Mg Vial) 1 mg SQ UD PRN; Protocol PRN Reason: Hypoglycemia Protocol Stop: 04/03/21 17:06 Glucose (Glucose 10 Tabs/Tube) 4 - 8 tabs PO UD PRN; Protocol PRN Reason: Hypoglycemia Protocol Stop: 04/03/21 17:06 Glucose (Glucose 40% Gel 15 Gm Tube) 15 - 30 gm PO UD PRN; Protocol PRN Reason: Hypoglycemia Protocol Stop: 04/03/21 17:06 Hydromorphone HCl (Hydromorphone Inj 0.5 Mg/0.5 Ml Syr) 0.5 mg IV Q3H PRN PRN Reason: MOD pain (scale 4-6) & Pre PT Stop: 03/18/21 16:32 Hydromorphone HCl (Hydromorphone Inj 1 Mg/Ml Syringe) 1 mg IV Q3H PRN PRN Reason: severe pain (scale 7-10) Stop: 03/18/21 16:32 Last Admin: 03/05/21 07:24 Dose: 1 mg Documented by: Hydroxyzine HCl (Hydroxyzine Hcl 25 Mg Tab) 25 mg PO Q8H PRN PRN Reason: Anxiety Stop: 04/03/21 16:32 Last Admin: 03/05/21 00:18 Dose: 25 mg Documented by: Promethazine HCl 12.5 mg/ (Sodium Chloride) 50.5 mls @ 202 mls/hr IV Q6H PRN PRN Reason: Nausea &/or Vomiting Stop: 04/03/21 16:32 Acetaminophen (Ofirmev) 1,000 mg in 100 mls @ 400 mls/hr IV Q8H PRN PRN Reason: Pain Rating 1-3 & Pre PT Stop: 03/07/21 16:32 Lorazepam (Ativan) 0.5 mg in 1 mls @ 1 mls/min IV Q8H PRN PRN Reason: Sedation/Anxiety Stop: 04/03/21 16:32 Dexamethasone 6 mg/ Syringe 1.5 mls @ 1 mls/min IV DAILY [facility] Stop: 03/08/21 09:02 Last Admin: 03/07/21 08:38 Dose: 1 mls/min Documented by: Influenza Virus Vaccine Quadrival (Do Not Administer Flu Vaccine) 1 ea N/A PRN PRN PRN Reason: Notification Stop: 04/04/21 13:54 Insulin Aspart (Insulin Aspart Per Unit) 0 units SC ACHS [facility] Stop: 04/05/21 07:29 Last Admin: 03/06/21 21:32 Dose: 5 units Documented by: Insulin Glargine (Insulin Glargine Solostar 100 Units/Ml 3 Ml Pen) 0 - 10 units SC BID [facility]; Protocol Stop: 04/03/21 20:59 Last Admin: 03/06/21 21:31 Dose: 10 units Documented by: Lorazepam (Lorazepam 0.5 Mg Tab) 0.5 mg PO Q8H PRN PRN Reason: sedation/anxiety Stop: 04/03/21 16:32 Last Admin: 03/04/21 20:17 Dose: 0.5 mg Documented by: Magnesium Hydroxide (Magnesium Hydroxide Susp 30 Ml Udc) 30 ml PO Q24H PRN PRN Reason: Constipation Stop: 04/03/21 16:32 Metoclopramide HCl (Metoclopramide Hcl Inj 5 Mg/Ml 2 Ml Vial) 10 mg IV Q6H PRN PRN Reason: Nausea &/or Vomiting Stop: 04/03/21 16:32 Miscellaneous (Carbohydrates For Hypoglycemia ) 15 - 30 gm PO UD PRN PRN Reason: Hypoglycemia Protocol Stop: 04/03/21 17:06 Multivitamins (Multivitamin Tab) 1 tab PO QAM [facility] Stop: 04/04/21 08:59 Last Admin: 03/07/21 08:34 Dose: 1 tab Documented by: Naloxone HCl (Naloxone Hcl 0.4 Mg/1 Ml Vial/Carp) 0.1 mg IV Q5M PRN PRN Reason: Oversedation/respiratory dep Stop: 04/03/21 16:32 Naloxone HCl (Naloxone Hcl 0.4 Mg/1 Ml Vial/Carp) 0.1 mg IV Q5M PRN PRN Reason: Oversedation/Resp depression Stop: 04/04/21 13:54 Ondansetron HCl (Ondansetron Inj 2 Mg/Ml 2 Ml Vial) 4 mg IV Q6H PRN PRN Reason: Nausea &/or Vomiting Stop: 04/03/21 16:32 Ondansetron HCl (Ondansetron 4 Mg Od Tab) 4 mg PO Q6H PRN PRN Reason: Nausea Stop: 04/03/21 16:32 Oxycodone HCl (Oxycodone Hcl Ir 5 Mg Tab (Immediate Release)) 5 - 10 mg PO Q4H PRN PRN Reason: mod to severe pain Stop: 03/18/21 16:32 Last Admin: 03/05/21 20:34 Dose: 5 mg Documented by: Pneumococcal Polyvalent Vaccine (Do Not Administer Pneumococcal Vaccine) 1 ea N/A PRN PRN PRN Reason: Notification Stop: 04/04/21 13:54 Polyethylene Glycol (Polyethylene (Miralax) 17 Gm Pack) 17 gm PO Q6 AFTAB Stop: 04/05/21 05:59 Last Admin: 03/07/21 05:19 Dose: 17 gm Documented by: Senna/Docusate Sodium (Docusate Sodium/Senna 50/8.6mg Tab) 2 tab PO HS AFTAB Stop: 04/04/21 20:59 Last Admin: 03/06/21 21:33 Dose: 2 tab Documented by: Sodium Biphosphate/Sodium Phosphate (Sod Phosphate/Sod Biphosphate Enema 132 Ml Btl) 132 ml VA ONE PRN PRN Reason: Constipation Stop: 04/03/21 16:32 Tamsulosin HCl (Tamsulosin Hcl 0.4 Mg Cap) 0.4 mg PO DAILY [facility] Stop: 04/04/21 08:59 Last Admin: 03/07/21 08:36 Dose: 0.4 mg Documented by: Tramadol HCl (Tramadol Hcl 50 Mg Tablet) 50 - 100 mg PO Q4H PRN PRN Reason: Moderate-Severe pain & Pre PT Stop: 04/03/21 16:32 Last Admin: 03/05/21 23:37 Dose: 50 mg Documented by:
[2021-03-07] MEDS: INSULIN GLARGINE SOLOSTAR 100 UNITS/ML 3 ML PEN SC SCH (09:13)
[2021-03-07] MEDS: INSULIN ASPART PER UNIT SC SCH ×2 (09:15→12:55)
--- NOTE | 2021-03-07 16:27 | Discharge Summary ---
Date of Service March 07, 2021 Admission HPI Per Admitting Provider This is a 80-year-old male well-known to me the presents with marked decline in status over the past several days. He is status post multilevel lumbar decompression fusion approximately 6 weeks ago. He had tolerated this well but had a marked decline in status over the past week. Imaging performed in our office Friday demonstrates evidence of osteoporotic loosening of the inferior aspect of the hardware at the L5 pedicle screws. There is posterior migration of interbody cage and kyphosis across this level. This is dramatic change from his postoperative x-rays. He is also noting severe left leg pain and has been progressive over the past few days he is no longer able to ambulate secondary to pain. 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 Discharge Data Allergies Allergy/AdvReac Type Severity Reaction Status Date / Time No Known Allergies Allergy Verified 03/04/21 09:55 Consultations 03/04/21 09:20 ED Decision to Admit Stat 03/04/21 16:33 Consult Internal Medicine Routine 03/06/21 18:07 Consult Patient Rep [Consult Patient Services] Routine Procedures Performed Operation Date: 03/05/21 10:05 Actual Procedures p Revision Decompression Fusion L4-L5 with bone morphogenic protein and spinal cord monitoring(Not Applicable) - Bismark Castro, Ordered Studies 03/05/21 09:30 FL lumbar spine 2-3V Routine Hospital Course (1) 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 He underwent revision decompression fusion the following day tolerates well was taken to orthopedic floor. Postop day 1 he was up and ambulating with marked improvement of his symptom complex. He progressed to postop day #2. WILDA drain decreased probably. Excellent strength testing. Subsequently discharged home. Discharge orders instructions from the chart for further review. Total Time Total Time Spent Total Time Spent (In Minutes): 20 minutes Discharge Plan Discharge Items Patient Disposition: Home - Self-Care Reason For Visit: LOWER BACK PAIN/SURGERY 12/01/20/REF BY DR CASTRO Discharge Diagnosis: Osteoporotic hardware failure Activity: As commented below Non-emergency contact: Primary Care Provider Call non-emergency contact if: you have any medication questions Follow-up/Referrals: Nayan Shields MD [Primary Care Provider] - Diet: Regular Addtl Attending Provider Instructions: ACTIVITY RECOMMENDATIONS: SELF CARE INSTRUCTIONS AFTER THORACIC/LUMBAR FUSIONS 1. You may walk to your tolerance. It is good exercise for your legs and back. Expect some back and intermittent leg aches and pains. 2. You may perform "counter-top" level activities (make a sandwich, maria d with a project, etc.). 3. No bending or lifting of more than 10 pounds or back twisting of any nature (roll like a log when turning in bed). 4. You may ride in a car for 20-30 minutes at a time. No driving until after your first visit with your doctor. 5. Frequent changes of position and restricting sitting to 30 minutes at a time will help limit the amount of back spasms and stiffness you may experience. 6. You may discontinue the use of ambulatory aids (cane, crutches, etc.) once your strength and confidence allow. 7. You may vehicle calibration engineer the shower and let water strike your incision when you arrive home at least once daily. Do not take a tub bath, sit in a hot tub or go into a swimming pool until after your first recheck in the office. SPECIAL CARE INSTRUCTIONS: VERY IMPORTANT TO READ AND REVIEW A. Your surgical incision has been closed with a cosmetic suture under the skin that will dissolve in about 6 weeks. In 14 days, you can use a pair of clean scissors and cut the suture that is left outside of the skin at the ends of your incision. 1. The small skin tapes can be removed 7 days after surgery if they have not fallen off by that point. 2. You may keep the wound open to air as much as possible to promote healing after post-op day number 5 unless told otherwise by your doctor. 3. If you think the wound looks like it is becoming infected (redness or worsening drainage) and/or you are experiencing fever, chill or worsening back pain and muscle spasms, contact the office so that we may evaluate you as soon as possible. B. Complications are uncommon, but please contact us if you have any signs or symptoms of: 1. wound infection (fever higher than 102.5 degrees F, redness, separation of wound, drainage, or increasing pain from the incision) 2. blood clots in legs (pain, swelling, redness and warmth in legs) 3. urinary tract infection (fever higher than 102.5 degrees F, burning upon urination or increased frequency of urination) 4. nerve problems (inability to walk on your toes or heels, numbness, loss of bowel or bladder control) 5. any other symptoms that concern you C. Please call the office at if you have any concerns or questions about your operation or recovery. D. No smoking! Smoking drastically decreases the chance of a solid fusion. E. Do not take any anti-inflammatory medications (Indocin, Advil, Motrin, Aspirin, Naprosyn, etc.) as these may inhibit the chance of a solid fusion. Tylenol is okay to take for pain. MANAGING PAIN AFTER SPINAL SURGERY 1. Narcotic medication is intended for short-term use and will be provided for surgical pain. Surgical pain usually lasts for a period of 4-6 weeks. Narcotic medication includes Percocet, Vicodin, Darvocet, Tylenol #3 or Lortab. 2. Longer-term pain is more appropriately treated with non-narcotic medication such as Tylenol ES. 3. Muscle spasm is not appropriately treated with narcotics. Muscle relaxers such as Soma, Flexeril or Skelaxin can be used along with Tylenol ES. 4. Remember that we all live with some "aches and pains". This is not unusual or uncommon after an injury or as we get older. a. Back pain is expected and may include muscle spasms for 4 to 6 weeks after surgery. The pain should gradually improve. If the pain worsens for no apparent reason, please contact the office. b. Intermittent leg pain may also be experienced and should not be concerned about unless it worsens for no apparent reason. If so, please contact the office. 5. We will provide appropriate medication within the normal guidelines of their prescribed use. We will also be very cautious and aware of potential abuse and extended duration of patients' medication needs. a. Pain medications are for your comfort and to assist with sleep and rest so that the tissue can heal. They are not provided in order to return to normal activity and should not be used through the day. To do so or worsening pain at night can result from ongoing tissue damage and development of tolerance to the prescribed medicine. 6. Please allow 2-3 days to process refills. Prescriptions will not be mailed but must be picked up at the office. FOLLOW UP VISIT: Keep your scheduled follow-up appointment. Any questions, please call the office at . Pending Studies at Discharge: No Stand-Alone Forms: My [facility], Smoking Cessation Medications and DC Order Prescriptions: New tramadol 50 mg tablet 50 mg PO Q6H PRN (Reason: pain, moderate) Qty: 30 RF: 0 oxycodone 5 mg tablet 5 mg PO Q6H PRN (Reason: pain, severe) Qty: 30 RF: 0 Continued tamsulosin [Flomax] 0.4 mg capsule 0.4 mg PO DAILY Qty: 30 RF: 2 Tradjenta 5 mg Tablet 5 mg PO QAM RF: 0 multivitamin Tablet 1 tab PO QAM RF: 0 metformin 500 mg Tablet 500 mg PO BID RF: 0 acetaminophen 500 mg Capsule 500 - 1,000 mg PO BID RF: 0 cyanocobalamin (vitamin B-12) 2,000 mcg Tablet 2,000 mcg PO QAM RF: 0 cetirizine [Zyrtec] 10 mg Tablet 10 mg PO QAM RF: 0 aspirin 81 mg Tablet,Delayed Release (Dr/Ec) 81 mg PO QAM RF: 0 tramadol 50 mg tablet 50 mg PO Q6H PRN (Reason: pain, moderate) Qty: 30 RF: 0 Discharge Orders: Discharge Order (Routine); Ordered 03/07/21 Ordered By: Bismark Castro Admission Data Admit Date/Time: 03/04/21 10:41 Attending Provider: Bismark Castro Admit Provider: Bismark Castro Primary Care Provider: Nayan Shields Other Providers: Valeria Robin ; Bismark Castro ; Alva Neves ; Donny Sotelo
== END 2021-03-07 17:10 | disposition home or self-care (01) | DRG 457 ==
LOC: ED 08:34 → EDINP 10:41 → 3N 16:28

== ENCOUNTER 2021-06-02 20:27 | Inpatient (IN) ==
--- NOTE | 2021-06-02 21:06 | History & Physical Report ---
Date of Service June 02, 2021 Assessment & Plan (1) Ureterolithiasis: (2) Hydronephrosis: (3) BIANCA (acute kidney injury): (4) CKD (chronic kidney disease), stage III: (5) Diabetes mellitus, type 2: (6) DVT prophylaxis: Plan: Enrike Evans is an 80-year-old male with past medical history of DM2, hyperlipidemia, CKD 3, osteoporosis who arrived to [facility] emergency department due to left flank pain since this morning. Found to have left obstructing kidney stone at [facility] with hydronephrosis. Ureterolithiasis w/ hydronephrosis With leukocytosis, tachycardia likely infected Admit to med/surg CBC, CMP Received cefepime 2g in [place] [facility] -- switch to ceftriaxone daily Continue maintenance IV fluids Continue tamsulosin N.p.o. Antiemetics and analgesia as needed -- Tylenol for mild, Dilaudid 0.25mg moderate, Dilaudid 0.5mg severe Consult urology Dr. Bashir aware BIANCA on CKD stage III Creatinine of 2.2 in [place] [facility], baseline per chart review here seems to be around 1.4-1.5 Likely obstructive Continue maintenance NSS @ 100 cc/h Expect to improve when kidney stone removed Avoid nephrotoxins Monitor creatinine Hypomagnesemia Received 2g Mas sulfate in [place] [facility] Recheck mag level Replete prn DM2 Hold home metformin and Tradjenta SSI while admitted DVT ppx: Heparin SQ FEN: NPO, NSS @ 100cc/h Dispo: Admit med/surg CODE STATUS: Full History of Present Illness Primary Care Provider: Nayan Shields MD Enrike Evans is an 80-year-old male with past medical history of DM 2, hyperlipidemia, CKD 3, osteoporosis who arrived to [facility] emergency department due to left flank pain since last night. This morning, his pain worsened significantly. He had associated nausea, vomiting, rigors. He has not been febrile. In the [place] ED, patient had CT abdomen/pelvis showing left 1 cm ureteropelvic junction stone with mild hydronephrosis. He had a white count of 14, hypertensive, tachycardic. He had received a dose of Toradol 15 mg IV prior to labs resulting with a creatinine of 2 with an unknown baseline. Additionally, patient was hypomagnesemic to 1.2 and received 2 g mag sulfate. Patient got 1 L normal saline bolus and was started on maintenance at 75 cc/h. He was transferred to our facility due need for urologic intervention. On arrival, patient is in no acute distress. He does say that he continues to have some pain, about 5 out of 10 in intensity. Mostly in his lower abdomen. He has mild nausea as well. Denies shortness of breath, cough, chest pain, palpitations, headache, dizziness, weakness, numbness. Allergies Allergy/AdvReac Type Severity Reaction Status Date / Time No Known Allergies Allergy Verified 03/04/21 09:55 Home Medications Medication Instructions Recorded Confirmed Type acetaminophen 500 mg capsule 500 - 1,000 mg PO BID 11/08/20 06/02/21 History aspirin 81 mg tablet,delayed 81 mg PO QAM 11/08/20 06/02/21 History release cetirizine 10 mg tablet (Zyrtec) 10 mg PO QAM 11/08/20 06/02/21 History cyanocobalamin (vitamin B-12) 2,000 mcg PO QAM 11/08/20 06/02/21 History 2,000 mcg tablet linagliptin 5 mg tablet (Tradjenta) 5 mg PO QAM 11/08/20 06/02/21 History metformin 500 mg tablet 500 mg PO BID 11/08/20 06/02/21 History multivitamin 1 tab PO QAM 11/08/20 06/02/21 History tamsulosin 0.4 mg capsule (Flomax) 0.4 mg PO DAILY #90 cap 03/19/21 06/02/21 Rx Past Med/Surg History Medical History Aneurysm "3 ANEURYSMS"- F/U DR HOSSEIN LEW ANNUALLY-NO CHANGES-PT NOT SURE AWARE OF LOCATIONS Per cardo records "AAA, 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" Chronic back pain CKD stage 3 due to type 2 diabetes mellitus Diabetes mellitus, type 2 Glucose stable First degree AV block Kidney stones HX Sleep apnea "SLEEPS SITTING UP"-DUE TO BACK ISSUES-QUIT USING HIS CPAP YRS AGO Spinal stenosis Spondylolisthesis Vitamin B12 deficiency Vitamin D deficiency Surgical History History of cataract surgery History of colonoscopy History of cystoscopy WITH STENT FOR STONES History of surgical removal of pilonidal cyst History of total hip arthroplasty R/L Family History Brother Family history of diabetes mellitus Diabetes Blood disorder Brother Family history of diabetes mellitus Colorectal cancer Diabetes Mother Family hx of colon cancer Colorectal cancer Father Heart disease Sister Coronary heart disease COPD (chronic obstructive pulmonary disease) Social History Smoking Status: Never smoker Second Hand Exposure: No; Hx Alcohol Use: No Hx Substance Use: No Preferred Language: Jordanian Communication Ability: Effective Event Promotions Coordinator Required: No Beliefs That Will Affect Care: None marital status: Current Living Situation: Spouse Current Living Situation Comment: Home with current occupational status: other 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 NAD. HEENT: PERRL, EOMI. Moist mucous membranes. NECK: No JVD. No lymphadenopathy. CHEST/LUNGS: CTAB A/P. No crackles, wheezes, rales, ronchi. HEART: RRR. No m/g/r. No carotid bruits. ABDOMEN: NT/ND, soft. BS+ x4 EXTREMITIES: No cyanosis, no clubbing, no edema SKIN: Warm and dry. No rashes or lesions. PSYCHIATRIC: Euthymic affect, no SI, no pressured speech, no hallucinations NEUROLOGIC: No FND. CN II-XII grossly intact. Supervising Physician Co-Signing Physician Notes Attending addendum: I have supervised the medical residents activities, and agree with the H&P u nless as otherwise noted. Assessment and Plan: 1 cm left [facility] kidney stone with mild hydronephrosis and perinephric stranding- Accepted in transfer from [facility] emergency department Received cefepime 2 g IV there Follow urine culture and sensitivities from referring hospital NPO except meds NSS@100 mils per hour Pain regimen as noted Zofran 4 mg IV every 6 hours as needed Consult to urology Dr. Krysten, he is aware Acute kidney injury on chronic kidney disease stage III- Creatinine 2.2 upon admission, with range 1.4-1.5 NSS@100 mils per hour Addressing kidney stone per urology Follow serial laboratories Diabetes mellitus hold Metformin and Tradjenta Sliding scale Remaining orders and notations as noted Resident Activity Tracking Resident Involvement: Resident Care Provided Care Provided: Adult Hospital Medicine
[2021-06-02] MEDS ORDERED: ONDANSETRON INJ 2 MG/ML 2 ML VIAL IV PRN (22:03)
[2021-06-02] MEDS ORDERED: HYDROmorphone INJ 0.5 MG/0.5 ML SYR IV PRN ×2 (22:08)
[2021-06-02] MEDS ORDERED: ACETAMINOPHEN 1,000 MG/100 ML VIAL IV PRN ×2 (22:08→22:09)
[2021-06-02] MEDS ORDERED: DEXTROSE 50% 50 ML SYRINGE IV PRN (22:12)
[2021-06-02] MEDS ORDERED: GLUCAGON FOR INJ 1 MG VIAL SQ PRN (22:12)
[2021-06-02] MEDS ORDERED: CARBOHYDRATES FOR HYPOGLYCEMIA PO PRN (22:12)
[2021-06-02] MEDS ORDERED: DC ALL PREVIOUSLY ORDERED DIABETES MEDS ONE (22:12)
[2021-06-02] MEDS ORDERED: GLUCOSE 40% GEL 15 GM TUBE PO PRN (22:12)
[2021-06-02] MEDS ORDERED: GLUCOSE 10 TABS/TUBE PO PRN (22:12)
[2021-06-02 22:30] LABS: Mean Corpuscular Hemoglobin 28.9 pg (25-34); Mean Corpuscular Hgb Conc 34.2 g/dL (32-36); Mean Corpuscular Volume 84.4 fL (80-100); RDW Coefficient of Variation 14.9 % (11.5-14.5); RDW Standard Deviation 46.2 fL (36.4-46.3); White Blood Count 11.14 K/uL (4.8-10.8)
[2021-06-02] MEDS: SODIUM CHLORIDE 0.9% 1000ML 1,000 ML IV SCH (22:30)
[2021-06-02 22:48] LABS: Immature Granulocytes # (auto) 0.06 K/uL (0.00-0.02); Immature Granulocytes % (auto) 0.5 %; Lymphocytes # (auto) 0.35 K/uL (1.2-3.4); Lymphocytes % (auto) 3.1 %; Mean Platelet Volume 9.6 fL (7.4-10.4); Monocytes # (auto) 0.57 K/uL (0.11-0.59); Monocytes % (auto) 5.1 %; Neutrophils # (auto) 10.16 K/uL (1.4-6.5); Neutrophils % (auto) 91.3 %; Platelet Count 99 K/uL (130-400); Platelet Estimate Decreased (Normal)
[2021-06-02 22:52] LABS: Albumin Globulin Ratio 1.3 (0.9-2); Albumin Level 3.9 gm/dl (3.4-5.0); BUN Creatinine Ratio 13.2 (10-20); Calcium 8.4 mg/dl (8.5-10.1); Creatinine Clr Calc Pharmacy 28.7 ml/min; Est GFR (African American) 31.2 ml/min; Est GFR (Non-African American) 26.9 ml/min; Globulin 2.9 gm/dl (2.5-4.0); Magnesium 1.6 mg/dl (1.7-2.4); Potassium 4.7 mmol/L (3.5-5.1); Total Protein 6.8 gm/dl (6.0-8.3)
[2021-06-02] MEDS: INSULIN ASPART PER UNIT SC SCH (23:40)
[2021-06-03] MEDS: MAGNESIUM SULFATE / D5W 1 GM/100 ML BAG IV SCH ×2 (01:26→03:32)
[2021-06-03 02:36] LABS: Appearance Urine Cloudy (Clear); Bacteria Urine Automated 2+ (Negative); Bilirubin Urine Negative (Negative); Blood Urine 2+ (Negative); Color Urine Yellow; Epithelial Cell Urine Auto 0-5 /lpf (0-5); Glucose Urine UA 2+ (Negative); Ketones Urine Trace (Negative); Leukocyte Esterase Urine 2+ (Negative); Nitrite Urine Positive (Negative); Protein Urine 2+ (Negative); Specific Gravity Urine 1.026 (1.000-1.030); Urobilinogen Urine Negative (Negative); WBC Urine Automated >30 /hpf (0-5)
[2021-06-03 06:01] LABS: Albumin Globulin Ratio 1.3 (0.9-2); Albumin Level 3.6 gm/dl (3.4-5.0); BUN Creatinine Ratio 13.5 (10-20); Calcium 8.3 mg/dl (8.5-10.1); Creatinine Clr Calc Pharmacy 27.5 ml/min; Est GFR (African American) 29.7 ml/min; Est GFR (Non-African American) 25.6 ml/min; Globulin 2.8 gm/dl (2.5-4.0); Magnesium 2.1 mg/dl (1.7-2.4); Potassium 4.6 mmol/L (3.5-5.1); Total Protein 6.4 gm/dl (6.0-8.3)
[2021-06-03] MEDS: INSULIN ASPART PER UNIT SC SCH ×4 (06:14→21:08)
[2021-06-03] MEDS: SODIUM CHLORIDE 0.9% 1000ML 1,000 ML IV SCH ×2 (06:15→17:15)
[2021-06-03 06:55] LABS: Hematocrit (blood only) 34.9 % (42-52); Hemoglobin 11.8 g/dL (14.0-18.0); Mean Corpuscular Hemoglobin 28.7 pg (25-34); Mean Corpuscular Hgb Conc 33.8 g/dL (32-36); Mean Corpuscular Volume 84.9 fL (80-100); Mean Platelet Volume 10.1 fL (7.4-10.4); Platelet Count 81 K/uL (130-400); RDW Coefficient of Variation 15.2 % (11.5-14.5); RDW Standard Deviation 47.4 fL (36.4-46.3); Red Blood Count 4.11 M/uL (4.7-6.1); White Blood Count 13.54 K/uL (4.8-10.8)
[2021-06-03 06:57] LABS: ALC (manual) 0.47 K/uL (1.2-3.4); ANC (manual) 12.01 K/uL (1.4-6.5); Lymphocytes # (manual) 0.47 K/uL (1.2-3.4); Lymphocytes % (manual) 3.5 %; Metamyelocytes # (manual) 0.23 K/uL (0-0); Metamyelocytes % (manual) 1.7 %; Microcytosis Present; Monocytes # (manual) 0.83 K/uL (0.11-0.59); Monocytes % (manual) 6.1 %; Neutrophils # (manual) 12.01 K/uL (1.4-6.5); Neutrophils % (manual) 88.7 %
--- NOTE | 2021-06-03 09:03 | Urology Consultation ---
Date of Consultation June 03, 2021 Assessment & Plan (1) Ureterolithiasis: (2) BIANCA (acute kidney injury): (3) Acute UTI: Obstructing left ureteral calculus with associated infection and bacteremia Fortunately not showing full septicemia at this stage but it emergent intervention is indicated We will plan for cystoscopy and left ureteral stent placement this morning I have explained that he may experience rigors and fevers after stent placement and will require continued antibiotic therapy likely for 14 days We will then have to return in the future to finalize treatment of his stones We discussed his particular risks given his other comorbiditiesparticularly given bacteremia and numerous prior orthopedic interventions and implanted hardwareI stressed the need to intervene soon and continue the broad-spectrum antibiotics to prevent any seeding of these areas History of Present Illness Attending Physician: Nayan Lara DO History of Present Illness 80-year-old gentleman transferred from the [facility] emergency room to [facility] secondary to an obstructing ureteral calculus and concern for infection He has a history of kidney stones Also has a history of urinary retention after spine surgery He has had prior surgery for kidney stones He reports that he had rigors, nausea, severe left flank pain over the past 48 hours which led to his emergency room visit in [facility] After transfer here we received a call from [facility] stating that his blood cultures were positive He is currently on broad-spectrum antibiotics to cover for this He is not currently exhibiting fevers or rigors but he remains borderline tachycardic and has a low level leukocytosis (13) Creatinine also acutely elevated to 2.29 Allergies Allergy/AdvReac Type Severity Reaction Status Date / Time No Known Allergies Allergy Verified 03/04/21 09:55 Home Medications Medication Instructions Recorded Confirmed Type acetaminophen 500 mg capsule 500 - 1,000 mg PO BID 11/08/20 06/02/21 History aspirin 81 mg tablet,delayed 81 mg PO QAM 11/08/20 06/02/21 History release cetirizine 10 mg tablet (Zyrtec) 10 mg PO QAM 11/08/20 06/02/21 History cyanocobalamin (vitamin B-12) 2,000 mcg PO QAM 11/08/20 06/02/21 History 2,000 mcg tablet linagliptin 5 mg tablet (Tradjenta) 5 mg PO QAM 11/08/20 06/02/21 History metformin 500 mg tablet 500 mg PO BID 11/08/20 06/02/21 History multivitamin 1 tab PO QAM 11/08/20 06/02/21 History tamsulosin 0.4 mg capsule (Flomax) 0.4 mg PO DAILY #90 cap 03/19/21 06/02/21 Rx Patient History Medical History Aneurysm "3 ANEURYSMS"- F/U DR HOSSEIN LEW ANNUALLY-NO CHANGES-PT NOT SURE AWARE OF LOCATIONS Per cardo records "AAA, 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" Chronic back pain CKD stage 3 due to type 2 diabetes mellitus Diabetes mellitus, type 2 Glucose stable First degree AV block Kidney stones HX Sleep apnea "SLEEPS SITTING UP"-DUE TO BACK ISSUES-QUIT USING HIS CPAP YRS AGO Spinal stenosis Spondylolisthesis Vitamin B12 deficiency Vitamin D deficiency Surgical History History of cataract surgery History of colonoscopy History of cystoscopy WITH STENT FOR STONES History of surgical removal of pilonidal cyst History of total hip arthroplasty R/L Family History Brother Family history of diabetes mellitus Diabetes Blood disorder Brother Family history of diabetes mellitus Colorectal cancer Diabetes Mother Family hx of colon cancer Colorectal cancer Father Heart disease Sister Coronary heart disease COPD (chronic obstructive pulmonary disease) Social History Smoking Status: Never smoker Second Hand Exposure: No; Hx Alcohol Use: No Hx Substance Use: No Preferred Language: Sami Communication Ability: Effective Consulting Sales Manager Required: No Beliefs That Will Affect Care: None marital status: Current Living Situation: Spouse Current Living Situation Comment: Home with current occupational status: other 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 Other Information That Helps Us Care for You: No Feels Safe at Home: Yes Safety Concerns: Feels Safe At This Time Assistive Devices: Cane and Walker Review of Systems Constitutional: + fever (Rigors), + chills and + fatigue Eyes: no worsening vision Ear, Nose, Mouth, Throat: no facial pain and no pain with swallowing Respiratory: no cough and no dyspnea Cardiovascular: no chest pain and no palpitations Gastrointestinal: + abdominal pain and + nausea Genitourinary: + urinary hesitancy and + flank pain Musculoskeletal: no back pain Integumentary: no rash and no urticaria Neurologic: no gait abnormality and no unsteadiness Psychiatric: no behavioral changes and no depression Endocrine: no fatigue Physical Exam Physical Exam: Not particularly toxic appearing but slightly shaky Constitutional: well developed and well nourished Neck: neck nontender Respiratory: normal respiratory effort; no respiratory distress and does not use accessory muscles Cardiovascular: Rate/Rhythm: regular rate Vessels: radial pulses present Extremities: no edema Gastrointestinal (Abdomen): Inspection/Auscultation: abdomen normal to inspection Percussion/Palpation: abdomen soft; abdomen nontender and no guarding Musculoskeletal: Head/Neck/Chest: normocephalic and head atraumatic Extremities: extremities normal to inspection Skin: no rashes and no lesions Trauma: no evidence of skin trauma Neurologic: awake; not obtunded Speech / Cognition: normal speech Motor/Sensory: no tremor Psychiatric: Orientation: alert and oriented x 3 Genitourinary: no CVA tenderness Lymphatic: no lymphadenopathy Results & Data ([facility]) Vital Signs (Past 12 Hours) Vital Signs Temp Pulse Pulse Resp BP Pulse Ox 06/03/21 07:30 36.9 C 98 H 18 99/64 L 93 06/02/21 23:11 37.3 C 06/02/21 22:39 38.0 C H 100 H 18 137/76 94 PG Care Time/CCT Total # of Minutes Spent Total Time Spent with Patient: Total time spent is greater than 50% in coordination of care (as documented) at patient's floor/unit and/or counseling patient: Coding Level of Care Code 05282 Inpt Consult Level 5 Diagnoses Ureterolithiasis N20.1 BIANCA (acute kidney injury) N17.9 Acute UTI N39.0
[2021-06-03] MEDS: cefTRIAXone SODIUM 2,000 MG in DEXTROSE 5% 50 ML IV SCH ×2 (09:21→09:45)
[2021-06-03] MEDS: CETIRIZINE HCL 10 MG TABLET PO SCH (09:24)
[2021-06-03] MEDS: INSULIN GLARGINE SOLOSTAR 100 UNITS/ML 3 ML PEN SC SCH ×2 (09:24→21:08)
[2021-06-03] MEDS: ASPIRIN 81 MG ECTAB PO SCH (09:24)
[2021-06-03] MEDS: HEPARIN SOD 5,000 UNIT/0.5 ML VIAL SQ SCH ×2 (09:24→21:10)
[2021-06-03] MEDS: TAMSULOSIN HCL 0.4 MG CAP PO SCH (09:25)
[2021-06-03] MEDS ORDERED: CEFEPIME 2,000 MG in SYRINGE 0 ML IV ONE (09:30)
[2021-06-03] MEDS ORDERED: ePHEDrine sulfate 50 MG/ML AMP IV PRN (09:38)
[2021-06-03] MEDS ORDERED: ATROPINE SULFATE 0.1 MG/ML 10ML SYR IV PRN (09:38)
[2021-06-03] MEDS ORDERED: ONDANSETRON INJ 2 MG/ML 2 ML VIAL IV PRN (09:38)
[2021-06-03] MEDS ORDERED: fentaNYL citrate 100 MCG/2 ML VIAL IV PRN (09:38)
[2021-06-03] MEDS ORDERED: HYDROmorphone INJ 2 MG/ML SYR/VIAL IV PRN (09:38)
--- NOTE | 2021-06-03 09:39 | Anesthesiology Consultation ---
Date of Service June 03, 2021 Assessment & Plan ASA ASA4 Proposed Anesthesia Anesthesia Type: MAC Risk / Benefits Reviewed With: PT / POA / Parent / Guardian, Accepts Plan and Informed Consent Obtained History Surgery Operation Date: 06/03/21 08:15 Proposed Procedures p Cystoscopy(Left) - Umer Bashir MD s Ureteral Stent Insertion/Removal(Left) - Umer Bashir MD Height/Weight Height: 5 ft 9 in Weight: 89.584 kg Allergies Allergy/AdvReac Type Severity Reaction Status Date / Time No Known Allergies Allergy Verified 03/04/21 09:55 Medications Home Medications Medication Instructions Recorded Confirmed Last Taken acetaminophen 500 mg capsule 500 - 1,000 mg PO BID 11/08/20 06/02/21 11/30/20 19:00 aspirin 81 mg tablet,delayed 81 mg PO QAM 11/08/20 06/02/21 03/03/21 release cetirizine 10 mg tablet (Zyrtec) 10 mg PO QAM 11/08/20 06/02/21 03/03/21 cyanocobalamin (vitamin B-12) 2,000 mcg PO QAM 11/08/20 06/02/21 11/27/20 09:00 2,000 mcg tablet linagliptin 5 mg tablet (Tradjenta) 5 mg PO QAM 11/08/20 06/02/21 03/03/21 metformin 500 mg tablet 500 mg PO BID 11/08/20 06/02/21 03/03/21 multivitamin 1 tab PO QAM 11/08/20 06/02/21 03/03/21 tamsulosin 0.4 mg capsule (Flomax) 0.4 mg PO DAILY #90 cap 03/19/21 06/02/21 Unknown Active Medications Generic Name Dose Route Start Last Admin Trade Name Freq PRN Reason Stop Dose Admin Aspirin 81 mg 06/03/21 09:00 06/03/21 09:24 Aspirin 81 Mg Ectab PO 07/03/21 08:59 Not Given QAM [facility] Cetirizine HCl 10 mg 06/03/21 09:00 06/03/21 09:24 Cetirizine Hcl 10 Mg Tablet PO 07/03/21 08:59 Not Given QAM [facility] Heparin Sodium (Porcine) 5,000 units 06/03/21 09:00 06/03/21 09:24 Heparin Sod 5,000 Unit/0.5 Ml Vial SQ 07/03/21 08:59 Not Given Q12 AFTAB Hydromorphone HCl 0.5 mg 06/02/21 22:08 06/03/21 03:35 Hydromorphone Inj 0.5 Mg/0.5 Ml Syr IV 06/16/21 22:07 0.5 mg Q3H PRN Administration Pain (9,10) Sodium Chloride 1,000 mls @ 100 mls/hr 06/02/21 22:15 06/03/21 06:15 Nss 1000ml IV 07/02/21 22:14 100 mls/hr .Q10H AFTAB Administration Acetaminophen 1,000 mg in 100 mls @ 400 mls/hr 06/02/21 22:09 06/02/21 22:50 Ofirmev IV 06/05/21 22:07 Infused Q8H PRN Infusion Pain (1-5) Or Fever Ceftriaxone Sodium 2,000 mg/ 70 mls @ 100 mls/hr 06/03/21 09:00 06/03/21 09:21 Dextrose IV 06/13/21 08:59 100 mls/hr DAILY AFTAB Administration Protocol Insulin Aspart 0 units 06/03/21 00:00 06/03/21 06:14 Insulin Aspart Per Unit SC 07/03/21 00:00 2 units Q6 AFTAB Administration Insulin Glargine 7 units 06/03/21 09:00 06/03/21 09:24 Insulin Glargine Solostar 100 Units/Ml 3 Ml Pen SC 07/03/21 08:59 Not Given BID AFTAB Ondansetron HCl 4 mg 06/02/21 22:03 06/03/21 03:40 Ondansetron Inj 2 Mg/Ml 2 Ml Vial IV 07/02/21 22:02 4 mg Q6H PRN Administration Nausea Tamsulosin HCl 0.4 mg 06/03/21 09:00 06/03/21 09:25 Tamsulosin Hcl 0.4 Mg Cap PO 07/03/21 08:59 Not Given DAILY AFTAB NPO Date Last Intake of Fluids: 06/03/21 Time Last Intake of Fluids: 00:00 Date Last Intake of Solids: 06/03/21 Time Last Intake of Solids: 00:00 Past Medical History Medical History Aneurysm "3 ANEURYSMS"- F/U DR HOSSEIN LEW ANNUALLY-NO CHANGES-PT NOT SURE AWARE OF LOCATIONS Per cardo records "AAA, 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" Chronic back pain CKD stage 3 due to type 2 diabetes mellitus Diabetes mellitus, type 2 Glucose stable First degree AV block Kidney stones HX Sleep apnea "SLEEPS SITTING UP"-DUE TO BACK ISSUES-QUIT USING HIS CPAP YRS AGO Spinal stenosis Spondylolisthesis Vitamin B12 deficiency Vitamin D deficiency Exercise / Class Metabolic Activity II 4-5 Yardwork/Stairs/Walk up hill Past Family History Family History Brother Family history of diabetes mellitus Diabetes Blood disorder Brother Family history of diabetes mellitus Colorectal cancer Diabetes Mother Family hx of colon cancer Colorectal cancer Father Heart disease Sister Coronary heart disease COPD (chronic obstructive pulmonary disease) Past Surgical History Surgical History History of cataract surgery History of colonoscopy History of cystoscopy WITH STENT FOR STONES History of surgical removal of pilonidal cyst History of total hip arthroplasty R/L Past Anesthesia History No Hx of Anesthesia Complications and No Family Hx of Anesthesia Complications History of PONV No Hx of PONV and No Hx of Motion Sickness Social History Smoking Status: Never smoker Hx Alcohol Use: No Hx Substance Use: No substance use type: prescription drug Review of Systems denies fever/cough/ colds/ chest pain/ SOB/ WILFREDO denies WILFREDO Physical Exam Vital Signs Last Vital Signs Temp 36.9 C 06/03/21 07:30 Pulse 98 H 06/03/21 07:30 Resp 18 06/03/21 07:30 BP 99/64 L 06/03/21 07:30 Pulse Ox 93 06/03/21 07:30 ENMT Mouth: no TMJ abnormality and no dentition abnormality Thyromental Distance: > or= 3.5 Finger Breadths Mallampati Class: II Neck neck extension not limited Respiratory normal respiratory effort; no respiratory distress Auscultation: lungs clear to auscultation bilaterally Cardiovascular Rate/Rhythm: regular rate and regular rhythm Neurologic moves all extremities Psychiatric Orientation: alert and oriented x 3 Testing Laboratory Results 06/03/21 05:18 06/03/21 05:18 Urine Color Yellow 06/03/21 02:15 Urine Appearance Cloudy (Clear) A 06/03/21 02:15 Urine pH 5.0 (4.5-7.5) 06/03/21 02:15 Ur Specific [place] 1.026 (1.000-1.030) 06/03/21 02:15 Urine Protein 2+ (Negative) H 06/03/21 02:15 Urine Glucose (UA) 2+ (Negative) H 06/03/21 02:15 Urine Ketones Trace (Negative) H 06/03/21 02:15 Urine Nitrite Positive (Negative) A 06/03/21 02:15 Ur Leukocyte Esterase 2+ (Negative) H 06/03/21 02:15 Urine WBC (Auto) >30 /hpf (0-5) H 06/03/21 02:15 Urine RBC (Auto) 5-10 /hpf (0-4) H 06/03/21 02:15 U Hyaline Cast (Auto) 1-5 /lpf (0-5) 06/03/21 02:15 U Epithel Cells (Auto) 0-5 /lpf (0-5) 06/03/21 02:15 Urine Bacteria (Auto) 2+ (Negative) H 06/03/21 02:15 06/03/21 06/03/21 06/02/21 09:12 05:56 23:39 POC Glucose 191 H 205 H 198 H
[2021-06-03] MEDS ORDERED: PROPOFOL IV EMULSION 10 MG/ML 20 ML VIAL IV ONE ×3 (09:44→09:58)
[2021-06-03] MEDS ORDERED: MIDAZOLAM HCL 1 MG/ML 2ML VIAL ONE (09:44)
[2021-06-03] MEDS ORDERED: ONDANSETRON INJ 2 MG/ML 2 ML VIAL ONE (09:44)
[2021-06-03] MEDS ORDERED: fentaNYL citrate 100 MCG/2 ML VIAL ONE (09:44)
--- NOTE | 2021-06-03 10:14 | Operative Report ---
PG Post Operative Report Pre & Post Diagnosis Operation Date: 06/03/21 08:15 Pre-Op Diagnosis: Kidney stones, hydronephrosis Post-Op Diagnosis: Kidney stones, hydronephrosis I identified the patient and participated in the time-out.: Yes Procedure Operation Date: 06/03/21 08:15 Actual Procedures p Cystoscopy(Not Applicable) - Umer Bashir MD s Left Ureteral Stent Insertion(Left) - Umer Bashir MD Surgeon Ghanshyam Bashir MD Automotive Service Advisor none Estimated Blood Loss 0 Findings Consistent with Post-Op Diagnosis Specimens none Description of Procedure The patient was identified in the preoperative holding area, appropriate informed consents were reviewed and completed and the patient was transferred to the operative suite. Upon arrival, appropriate antibiotics and anesthesia were administered and the patient was placed in dorsal lithotomy position and prepped and draped in sterile fashion. Begin the case I passed a 22 [place] cystoscope with 30 degree lens. Inspection revealed a healthy-appearing urethra and moderately enlarged prostate. His bladder was filled with purulent urine. I irrigated this out and cleared the bladder. There was some inflammation around the left UO and a heavily trabeculated bladder. I turned my attention to the left UO and cannulated with a sensor wire and a 5 [place] open-ended catheter. The wire advanced to the kidney without difficulty and I proceeded to place a 6 [place] by 26 cm double-J ureteral stent seeing a good curl in the kidney as well as the bladder. There were no complications. He tolerated the procedure well. And emptied the bladder concluded the case. He was reversed of anesthesia and taken to the recovery room in stable condition. I attest to the content of the Intraoperative Record and any orders documented therein. Any exceptions are noted below.
--- NOTE | 2021-06-03 10:15 | Hospitalist Progress Note ---
Date of Service June 03, 2021 Assessment & Plan (1) Ureterolithiasis: (2) Hydronephrosis: (3) BIANCA (acute kidney injury): (4) CKD (chronic kidney disease), stage III: (5) Diabetes mellitus, type 2: (6) DVT prophylaxis: Plan: Enrike Evans is an 80-year-old male with past medical history of DM2, hyperlipidemia, CKD 3, osteoporosis who arrived to [facility] emergency department due to left flank pain since this morning. Found to have left obstructing kidney stone at [facility] with hydronephrosis. Ureterolithiasis w/ hydronephrosis With leukocytosis, tachycardia likely infected -Thrombocytopenia this morning with concern for start of DIC, Rocephin switched to cefepime due to this concern without sensitivities back at this time Urology consulted, appreciate recommendations: Patient had ureteral stent placed today and tolerated procedure well. Suspect patient will need antibiotics for 14 days. Patient will have continue follow-up with urology in the outpatient setting post discharge. CBC, CMP Received cefepime 2g in [place] ED, switched to Rocephin here, but switch back to cefepime at this time 2 g twice daily. Continue maintenance IV fluids Continue tamsulosin N.p.o. Antiemetics and analgesia as needed -- Tylenol for mild, Dilaudid 0.25mg moderate, Dilaudid 0.5mg severe BIANCA on CKD stage III Creatinine of 2.2 in [place] ED, baseline per chart review here seems to be around 1.4-1.5 Likely obstructive Continue maintenance NSS @ 100 cc/h, recheck CMP in the morning Expect to improve when kidney stone removed Avoid nephrotoxins Monitor creatinine Hypomagnesemia, resolved Received 2g Mas sulfate in [place] ED Replete prn DM2 Hold home metformin and Tradjenta SSI while admitted DVT ppx: Heparin SQ FEN: NPO, NSS @ 100cc/h Dispo: Admit med/surg CODE STATUS: Full Admission and Anticipated Discharge Date Admission Date: June 02, 2021 Supervising Physician Co-Signing Physician Notes I personally examined the patient and verified all mar points of history and exam, discussed case, and agree with decision making with Dr Trotter. Feeling okay postop. Notes pain went away pretty much immediately. Notes he has residual back and leg symptoms that been ongoing2 back surgeries late last year. No new complaints in that regard. Last back surgery was in February. Vitals noted, in general he is awake and alert pleasant no distress. HEENT normocephalic atraumatic mucous membranes moist. Breathing unlabored no accessory muscle use good effort. Skin shows no rashes no pallor or icterus. Skin without petechia as well. Neuro without focal deficits. Urinary tract infection/probable pyelonephritis due to ureterolithiasis with subsequent gram-negative bacteremia (on report from outside hospital) with sepsis present on admissioncontinue gram-negative coveragereescalated to cefepime simply due to his thrombocytopenia raising concern that he could be working towards DICfortunately clinically he looks so well that I suspect this will turn around on its own, and at this point no further work-up or evaluation appears to be needed in that regardbut will continue with broader antibiotics until his cultures are back. Appreciate urology stenting. Await final results from blood cultures. Fortunately with it being gram-negative, and his back surgery being about 3 months ago, it seems likely to be low risk for any sort of seedingobviously follow for any new or different back symptoms, but I doubt he will have any fallout in this regard. otherwise as above Subjective Patient is here for 2-day history of fever, chills, nausea and nighttime sweating. These episodes of symptoms seem to wax and wane. He lives in [place] and because of the symptoms had gone to the ER while he was there there was imaging that confirmed a 1 cm stone that is at the [facility] on the left with hydronephrosis proximal. Patient also was found to have a urinary tract infection. Blood cultures were also taken at the time. [facility] called this morning and stated that 1 of 2 blood cultures were positive for gram- negative rods. Patient was placed on cefepime at [facility] and transferred to our facility for further management. Today patient overall seems to be doing well had a 30 minutes of chills with sweating overnight but otherwise seems to be doing better. Not having any pain at this time. No nausea or vomiting, chest pain, shortness of breath, or pain with urination. Patient has no complaints at this time. Urology had come and spoken to the patient prior to my arrival and patient is understanding that he is getting a urinary stent placed later in the day and is agreement with the plan. No other questions or concerns at this time Review of Systems Review of Systems: All systems reviewed & are unremarkable except as noted in HPI & below Physical Exam Constitutional: WD/WN, vitals as above Eyes: PERRL, conjunctivae normal, anicteric sclerae Neck: trachea midline, no thyromegaly Respiratory: normal respiratory effort, lungs clear to auscultation Cardiovascular: Rate/Rhythm: regular rate and regular rhythm Extremities: + edema (trace) Gastrointestinal (Abdomen): normal bowel sounds, soft, nontender, no hepatosplenomegaly Musculoskeletal: Head/Neck/Chest: normocephalic and head atraumatic Skin: no rashes, warm and dry Neurologic: moves all extremities Psychiatric: A+Ox3, euthymic affect Genitourinary: + CVA tenderness Results & Data Results & Data ([facility]) Vital Signs (Past 12 Hours) Vital Signs Temp Pulse Pulse Resp BP Pulse Ox 06/03/21 07:30 36.9 C 98 H 18 99/64 L 93 06/02/21 23:11 37.3 C 06/02/21 22:39 38.0 C H 100 H 18 137/76 94
--- NOTE | 2021-06-03 10:29 | Electrocardiogram Report ---
Test Reason : Blood Pressure : / mmHG Vent. Rate : 101 BPM Atrial Rate : 101 BPM P-R Int : 216 ms QRS Dur : 100 ms QT Int : 336 ms P-R-T Axes : 056 004 041 degrees QTc Int : 435 ms Sinus tachycardia with 1st degree A-V block Otherwise normal ECG When compared with ECG of 04-MAR-2021 09:42, No significant change was found Confirmed by Ghanshyam Coombs ([id number]) on 06/03/2021 10:28:39 AM Referred By: Jeuss Mckeon Confirmed By:Coleman Coombs
--- NOTE | 2021-06-03 10:57 | Anesthesiology Progress Note ---
Date of Service June 03, 2021 Anesthesia Post Procedure Vital Signs Vital Signs: Temp Pulse Pulse Pulse Resp BP Pulse Ox 06/03/21 10:45 91 H 17 107/64 95 06/03/21 10:35 36.6 C 92 H 19 106/61 94 06/03/21 10:25 94 H 19 110/62 99 06/03/21 10:16 36.1 C L 97 H 14 115/71 96 06/03/21 07:30 36.9 C 98 H 18 99/64 L 93 06/02/21 23:11 37.3 C 06/02/21 22:39 38.0 C H 100 H 18 137/76 94 Pain Intensity Left Flank: Pain Intensity: 10 Transfer of Care Handoff Completed per policy Notes Mental Status: alert / awake / arousable and participated in evaluation Patient Amnestic to Procedure: Yes Nausea / Vomiting: adequately controlled Pain: adequately controlled Airway Patency, RR, SpO2: stable & adequate BP & HR: stable & adequate Hydration State: stable & adequate Anesthetic Complications: no major complications apparent and Pt Satisfied with anesthetic care
--- NOTE | 2021-06-03 14:20 | Fluoroscopy Report ---
INTRAOPERATIVE RADIOGRAPHS CLINICAL HISTORY: Left ureteral stent placement. Fluoroscopy time: 10 seconds. FINDINGS: 2 spot fluoroscopic views of the left abdomen from a left ureteral stent placement procedur e are presented. The images show the proximal and distal ends of a left ureteral stent in appropriate position. No calcifications are clearly seen projecting along the course of the stent. Fusion hardwa re is noted in the lumbar spine and a left hip arthroplasty is in place. IMPRESSION: Intraoperative images from a left ureteral stent placement procedure as above. Electronically signed by: Elijah Pepper M.D. 06/03/2021 2:19 PM
--- NOTE | 2021-06-03 15:26 | Billing Data ---
Date of Service June 03, 2021 Coding Level of Care Code 27207 Subseq Hosp Care Lvl 3
--- NOTE | 2021-06-03 15:27 | Billing Data ---
Date of Service June 03, 2021 Coding Level of Care Code 09591 Subseq Hosp Care Lvl 3
--- NOTE | 2021-06-03 20:21 | Billing Data ---
Date of Service June 03, 2021 Coding Level of Care Code 72779 Initial Inpt Care Lvl 3
[2021-06-04] MEDS: SODIUM CHLORIDE 0.9% 1000ML 1,000 ML IV SCH ×3 (03:16→23:49)
[2021-06-04 07:20] LABS: Estimated Average Glucose 183 mg/dl
[2021-06-04 07:29] LABS: Hematocrit (blood only) 33.7 % (42-52); Hemoglobin 10.8 g/dL (14.0-18.0); Mean Corpuscular Hemoglobin 27.4 pg (25-34); Mean Corpuscular Volume 85.5 fL (80-100); RDW Coefficient of Variation 15.5 % (11.5-14.5); RDW Standard Deviation 49.3 fL (36.4-46.3); Red Blood Count 3.94 M/uL (4.7-6.1)
[2021-06-04 07:37] LABS: Mean Platelet Volume 10.6 fL (7.4-10.4); Platelet Count 65 K/uL (130-400)
[2021-06-04 07:49] LABS: Basophils # (auto) 0.01 K/uL (0-0.2); Basophils % (auto) 0.1 %; Echinocytes 1+; Eosinophils # (auto) 0.09 K/uL (0-0.5); Eosinophils % (auto) 0.9 %; Immature Granulocytes # (auto) 0.04 K/uL (0.00-0.02); Immature Granulocytes % (auto) 0.4 %; Lymphocytes % (auto) 6.9 %; Monocytes # (auto) 0.63 K/uL (0.11-0.59); Monocytes % (auto) 6.2 %; Neutrophils # (auto) 8.73 K/uL (1.4-6.5); Neutrophils % (auto) 85.5 %
[2021-06-04 07:52] LABS: BUN Creatinine Ratio 18.5 (10-20); Calcium 8.3 mg/dl (8.5-10.1); Creatinine Clr Calc Pharmacy 34.3 ml/min; Est GFR (African American) 38.7 ml/min; Est GFR (Non-African American) 33.4 ml/min; Potassium 4.2 mmol/L (3.5-5.1)
--- NOTE | 2021-06-04 07:57 | Hospitalist Progress Note ---
Date of Service June 04, 2021 Assessment & Plan (1) Ureterolithiasis: (2) Hydronephrosis: (3) BIANCA (acute kidney injury): (4) CKD (chronic kidney disease), stage III: (5) Diabetes mellitus, type 2: (6) DVT prophylaxis: (7) Thrombocytopenia: Plan: Enrike Evans is an 80-year-old male with past medical history of DM2, hyperlipidemia, CKD 3, osteoporosis who arrived to [facility] emergency department due to left flank pain since this morning. Found to have left obstructing kidney stone at [facility] with hydronephrosis. Ureterolithiasis w/ hydronephrosis With leukocytosis, tachycardia indicating infectious -Cultures and sensitivities still pending at [facility], however, microbiology lab feels that is likely Klebsiella and report to us that sensitivities will be back tomorrow and at that time will change antibiotic regimen accordingly. Urology consulted, appreciate recommendations: Patient had ureteral stent placed 06/03 and tolerated procedure well. Suspect patient will need antibiotics for 14 days. Patient will have continue follow-up with urology in the outpatient setting post discharge. CBC, BMP daily Continue maintenance IV fluids Continue tamsulosin Antiemetics and analgesia as needed -- Tylenol for mild, Dilaudid 0.25mg moderate, Dilaudid 0.5mg severe -Likely discharge tomorrow Thrombocytopenia -Platelets progressively downtrending from admission at 99 now to 65 in 3 days. -Fibrinogen, PT, PTT, INR, D-dimer, and peripheral smear ordered: Fibrinogen elevated, PT/INR normal, PTT mildly elevated, and D-dimer elevated. -Not DIC at this time based on lab work. Recheck in a.m. -If platelets continue to fall consider hematology consult BIANCA on CKD stage III Creatinine of 2.2 in [place] ED, baseline per chart review here seems to be around 1.4-1.5, improved to 1.84 today Likely obstructive, should continue to improve with ureteral stent in place Continue maintenance NSS @ 100 cc/h, recheck BMP in the morning Avoid nephrotoxins Monitor creatinine Hypomagnesemia, resolved Received 2g Mas sulfate in [place] ED Replete prn DM2 Hold home metformin and Tradjenta SSI while admitted DVT ppx: Heparin SQ FEN: NPO, NSS @ 100cc/h Dispo: med/surg CODE STATUS: Full Admission and Anticipated Discharge Date Admission Date: June 02, 2021 Supervising Physician Co-Signing Physician Notes Attending attestation Pt seen and examined in concert with Dr. Trotter. In agreement with the documented findings as noted in the resident documentation with any exceptions or additions as noted here. Resting comfortably in bed with improved flank pain and no new fever, chills, sweats. On examination, S1/S2 nl RRR. CTAB. Abd NT/ND BS+ve Ureterolithasis w/ hydronephrosis, overlying infection - continue cefepime, cultures from referring hospital pending for narrowing of regimen for discharge. Continue tamsulosin, IVF. Trend CBC, CMP. Pain control as noted BIANCA on CKD III in the setting of above - hdyration, monitor Thrombocytopenia - D-dimer pending but remaining labs reassuring/expected. Continue to trend CBC. Else see resident documentation as noted. Subjective Patient seen at bedside this morning. No acute events reported overnight. Patient tolerated ureteral stent placement well yesterday. Patient reports that he feels much better than he has in the past few days. No overnight sweating which is his first night without night sweats for most the week. Very appreciative of his care so far. Patient has improving flank pain otherwise has nothing else to report. Doing well. Denies any fevers, chills, chest pain, shortness of breath, or petechiae. Review of Systems Review of Systems: All systems reviewed & are unremarkable except as noted in HPI & below Physical Exam Constitutional: WD/WN, vitals as above Eyes: PERRL, conjunctivae normal, anicteric sclerae Neck: trachea midline, no thyromegaly Respiratory: normal respiratory effort, lungs clear to auscultation Cardiovascular: Rate/Rhythm: regular rate and regular rhythm Extremities: + edema (trace) Gastrointestinal (Abdomen): normal bowel sounds, soft, nontender, no hepatosplenomegaly Musculoskeletal: Head/Neck/Chest: normocephalic and head atraumatic Skin: no rashes, warm and dry Neurologic: moves all extremities Psychiatric: A+Ox3, euthymic affect Genitourinary: + CVA tenderness Results & Data Results & Data ([facility]) Vital Signs (Past 12 Hours) Vital Signs Temp Pulse Resp BP Pulse Ox 06/04/21 07:15 36.7 C 75 18 147/90 H 95 06/04/21 03:34 36.6 C 90 18 125/75 94 06/03/21 22:18 37.0 C 91 H 18 170/78 H 96
--- NOTE | 2021-06-04 08:18 | Urology Progress Note ---
Date of Service June 04, 2021 Assessment & Plan (1) Ureterolithiasis: (2) Hydronephrosis: (3) Acute UTI: (4) S/P ureteral stent placement: Plan: - Pt POD#1 s/p cystoscopy and left ureteral stent placement with Dr. Bashir. - Doing well, progressing as expected. - Afebrile overnight. - Lab work reviewed - creatinine and WBC downtrending, creatinine 1.84, WBC 10.20. - Outside blood cultures were positive per admission notes, on IV Cefepime, follow cultures. - Repeat urine and blood cultures obtained on admission - urine culture pending, BCx no growth x 24 hours. - Tolerating left ureteral stent with minimal bother. - Continue supportive care, antibiotics, and management per hospital medicine service. - Okay to d/c from perspective when medically stable. - Recommend d/c with course of appropriate PO antibiotics, Tamsulosin, prn Pyridium and prn pain medication for stent management. - Expected clinical course reviewed, all questions answered. - Will arrange outpatient follow-up with our service to discuss definitive stone management. Thank you for allowing us to participate in the acute care of Mr. Evans. Please reconsult us with additional questions, concerns or changes in patient status. Admission and Anticipated Discharge Date Admission Date: June 02, 2021 Subjective Patient seen and examined at bedside this AM. He is awake, alert and sitting up in bedside chair. No acute issues overnight. Voiding spontaneously, mild dysuria with void, hematuria clearing post procedure. He notes mild flank discomfort with void, then resolves. Tolerating PO diet, no nausea or vomiting. No fever or chills. Offers no additional complaints at present. Review of Systems Constitutional: as per Subjective / HPI Gastrointestinal: as per Subjective / HPI Genitourinary: + as per Subjective / HPI Physical Exam Constitutional: well developed and well nourished; no acute distress and not ill appearing Respiratory: normal respiratory effort and able to speak in complete sentences; no respiratory distress and no labored breathing Cardiovascular: Extremities: no pedal edema Gastrointestinal (Abdomen): Inspection/Auscultation: abdomen normal to inspection; abdomen not distended Percussion/Palpation: abdomen soft; abdomen nontender and no guarding Neurologic: moves all extremities and awake Psychiatric: Orientation: alert, oriented x 3 and cooperative Genitourinary: no CVA tenderness Results & Data ([facility]) Vital Signs (Past 12 Hours) Vital Signs Temp Pulse Resp BP Pulse Ox 06/04/21 07:15 36.7 C 75 18 147/90 H 95 06/04/21 03:34 36.6 C 90 18 125/75 94 06/03/21 22:18 37.0 C 91 H 18 170/78 H 96 PG Care Time/CCT Total # of Minutes Spent Total Time Spent with Patient: Total time spent is greater than 50% in coordination of care (as documented) at patient's floor/unit and/or counseling patient: Coding Level of Care Code 76372 Subseq Hosp Care Lvl 2 Diagnoses Ureterolithiasis N20.1 Hydronephrosis N13.30 Acute UTI N39.0 S/P ureteral stent placement Z96.0
[2021-06-04] MEDS: ASPIRIN 81 MG ECTAB PO SCH (08:38)
[2021-06-04] MEDS: CETIRIZINE HCL 10 MG TABLET PO SCH (08:38)
[2021-06-04] MEDS: TAMSULOSIN HCL 0.4 MG CAP PO SCH (08:39)
[2021-06-04] MEDS: HEPARIN SOD 5,000 UNIT/0.5 ML VIAL SQ SCH ×2 (08:46→23:49)
[2021-06-04 09:00] LABS: Fibrinogen 811 mg/dl (184-400); INR 1.1 (0.9-1.1); Partial Thromboplastin Ratio 1.3; Partial Thromboplastin Time 35.7 Seconds (21.0-31.0); Prothrombin Time 11.7 Seconds (9.0-12.0)
[2021-06-04] MEDS: INSULIN GLARGINE SOLOSTAR 100 UNITS/ML 3 ML PEN SC SCH ×2 (09:11→21:53)
[2021-06-04] MEDS: INSULIN ASPART PER UNIT SC SCH ×4 (09:16→21:56)
[2021-06-04] MEDS ORDERED: CEFEPIME 1,000 MG in SYRINGE 0 ML IV SCH (09:45)
[2021-06-04 10:28] LABS: D Dimer 8560 ug/L FEU (0-500)
[2021-06-04] MEDS ORDERED: POLYETHYLENE (MIRALAX) 17 GM PACK PO PRN (11:16)
[2021-06-04] MEDS: POLYETHYLENE (MIRALAX) 17 GM PACK PO PRN (12:22)
[2021-06-05 06:35] VITALS: BP 143/75; PULSE 60; TEMP 97.7; O2SAT 96
[2021-06-05 08:04] LABS: Hematocrit (blood only) 33.1 % (42-52); Hemoglobin 10.9 g/dL (14.0-18.0); Mean Corpuscular Hemoglobin 28.1 pg (25-34); Mean Corpuscular Hgb Conc 32.9 g/dL (32-36); Mean Corpuscular Volume 85.3 fL (80-100); RDW Coefficient of Variation 15.7 % (11.5-14.5); RDW Standard Deviation 48.8 fL (36.4-46.3); Red Blood Count 3.88 M/uL (4.7-6.1); White Blood Count 7.54 K/uL (4.8-10.8)
[2021-06-05 08:15] LABS: Mean Platelet Volume 10.6 fL (7.4-10.4); Platelet Count 84 K/uL (130-400)
[2021-06-05 08:25] LABS: BUN Creatinine Ratio 20.4 (10-20); Calcium 8.4 mg/dl (8.5-10.1); Creatinine Clr Calc Pharmacy 41.5 ml/min; Est GFR (African American) 48.8 ml/min; Est GFR (Non-African American) 42.1 ml/min; Potassium 4.2 mmol/L (3.5-5.1)
[2021-06-05] MEDS: INSULIN ASPART PER UNIT SC SCH ×2 (08:56→13:04)
[2021-06-05] MEDS: INSULIN GLARGINE SOLOSTAR 100 UNITS/ML 3 ML PEN SC SCH (08:57)
[2021-06-05] MEDS: HEPARIN SOD 5,000 UNIT/0.5 ML VIAL SQ SCH (09:01)
[2021-06-05] MEDS: POLYETHYLENE (MIRALAX) 17 GM PACK PO PRN (09:01)
[2021-06-05] MEDS: ASPIRIN 81 MG ECTAB PO SCH (09:02)
[2021-06-05] MEDS: TAMSULOSIN HCL 0.4 MG CAP PO SCH (09:02)
[2021-06-05] MEDS: CETIRIZINE HCL 10 MG TABLET PO SCH (09:02)
[2021-06-05] MEDS: SODIUM CHLORIDE 0.9% 1000ML 1,000 ML IV SCH (09:10)
--- NOTE | 2021-06-05 10:09 | Discharge Summary ---
Date of Service June 05, 2021 Admission HPI Per Admitting Provider Enrike Evans is an 80-year-old male with past medical history of DM 2, hyperlipidemia, CKD 3, osteoporosis who arrived to [facility] emergency department due to left flank pain since last night. This morning, his pain worsened significantly. He had associated nausea, vomiting, rigors. He has not been febrile. In the [facility] ED, patient had CT abdomen/pelvis showing left 1 cm ureteropelvic junction stone with mild hydronephrosis. He had a white count of 14, hypertensive, tachycardic. He had received a dose of Toradol 15 mg IV prior to labs resulting with a creatinine of 2 with an unknown baseline. Additionally, patient was hypomagnesemic to 1.2 and received 2 g mag sulfate. Patient got 1 L normal saline bolus and was started on maintenance at 75 cc/h. He was transferred to our facility due need for urologic intervention. On arrival, patient is in no acute distress. He does say that he continues to have some pain, about 5 out of 10 in intensity. Mostly in his lower abdomen. He has mild nausea as well. Denies shortness of breath, cough, chest pain, palpitations, headache, dizziness, weakness, numbness. Principal Diagnosis Sepsis, nephrolithiasis, hydronephrosis Discharge Exam Constitutional WD/WN, vitals as above Eyes PERRL, conjunctivae normal, anicteric sclerae Neck trachea midline, no thyromegaly Respiratory normal respiratory effort, lungs clear to auscultation Cardiovascular Rate/Rhythm: regular rate and regular rhythm Extremities: + edema (trace) Gastrointestinal (Abdomen) normal bowel sounds, soft, nontender, no hepatosplenomegaly Musculoskeletal Head/Neck/Chest: normocephalic and head atraumatic Skin no rashes, warm and dry Neurologic moves all extremities Psychiatric A+Ox3, euthymic affect Discharge Data Allergies Allergy/AdvReac Type Severity Reaction Status Date / Time No Known Allergies Allergy Verified 03/04/21 09:55 Consultations 06/02/21 22:03 Consult Urology Routine Procedures Performed Operation Date: 06/03/21 08:15 Actual Procedures p Cystoscopy, Left Ureteral Stent Insertion(Not Applicable) - Umer Bashir MD Ordered Studies 06/03/21 09:30 FL KUB Routine Hospital Course (1) Ureterolithiasis: (2) Hydronephrosis: (3) BIANCA (acute kidney injury): (4) CKD (chronic kidney disease), stage III: (5) Diabetes mellitus, type 2: (6) DVT prophylaxis: (7) Thrombocytopenia: Enrike Evans is an 80-year-old male with past medical history of DM2, hyperlipidemia, CKD 3, osteoporosis who arrived to [facility] emergency department due to left flank pain since this morning. Found to have left obstructing kidney stone at [facility] with hydronephrosis. Ureterolithiasis w/ hydronephrosis With leukocytosis, tachycardia indicating infectious -Cultures and sensitivities still pending at [facility], however, microbiology lab feels that is likely Klebsiella and report to us that sensitivities will be back tomorrow and at that time will change antibiotic regimen accordingly. Urology consulted, appreciate recommendations: Patient had ureteral stent placed 06/03 and tolerated procedure well. Patient will have continue follow-up with urology in the outpatient setting post discharge. Sent with 11 days worth of Bactrim DS twice daily, prescription sent to pharmacy. Cultures from [facility] showed E. coli with sensitivity to everything. Recommend drinking plenty of clear fluids to maintain hydration. Recommend at least 2 L of water per day. Continue tamsulosin Thrombocytopenia -Platelets progressivel, declined as an acute phase reactant and then were uptrending at the time of discharge likely because of appropriate antibiotic therapy. -Fibrinogen, PT, PTT, INR, D-dimer, and peripheral smear ordered: Fibrinogen elevated, PT/INR normal, PTT mildly elevated, and D-dimer elevated. -Not DIC at this time based on lab work. Platelets were uptrending at the time of discharge BIANCA on CKD stage III, Resolved Creatinine of 2.2 in [facility], baseline per chart review here seems to be around 1.4-1.5, improved to 1.5 today Likely obstructive, should continue to improve with ureteral stent in place Hypomagnesemia, resolved Received 2g Mas sulfate in [facility] DM2 Hold home metformin and Tradjenta SSI while admitted Dispo: Discharge home CODE STATUS: Full Total Time Total Time Spent Total Time Spent (In Minutes): 30 Discharge Plan Discharge Items Patient Disposition: Home - Self-Care Reason For Visit: KIDNEY STONES, HYDRONEPHROSIS Discharge Diagnosis: Bacteremia, nephrolithiasis, hydronephrosis Condition on Discharge: Good Activity: Per Instructions section Non-emergency contact: Primary Care Provider and Urologist Call non-emergency contact if: you have any medication questions, your symptoms worsen and your temperature is above 101 Follow-up/Referrals: Umer Bashir MD [Physician] - (Janet at [facility] office will call the patient to set up hospital follow up visit.) Nayan Shields MD [Primary Care Provider] - 06/14/21 2:15 pm Diet: Regular Addtl Attending Provider Instructions: You were transferred to our facility after having going to [facility] for a 24-hour history of flank pain in addition to nausea and vomiting. Your work-up at [facility] had revealed that you had a 1 cm obstructing stone in your ureter that was causing an infection. This infection had seeded into your bloodstream causing bacteria to show up in your blood. While you were here you were seen by our urologist who placed a ureteral stent to bypass the obstruction. Additionally you were started on antibiotics for which she received during her hospital stay. We will be sending you home with 11 days worth of an antibiotic that you should begin taking tomorrow. You have already received your follow-up instructions with urology. We also recommend that you follow-up with your primary care provider within the next 1 to 2 weeks to make sure that there are no gaps in your care. If you continue to have episodes of nausea and vomiting, you have a fever greater than 101 F, or your flank pain significantly worsens please return to the emergency room for further evaluation. Is been a pleasure to be a part of your care and we wish you the best of both your health in your recovery. Pending Studies at Discharge: No Stand-Alone Forms: My [facility], Smoking Cessation Medications and DC Order Prescriptions: New sulfamethoxazole-trimethoprim 800-160 mg tablet 1 tab PO Q12H 11 Days Qty: 22 RF: 0 Continued tamsulosin [Flomax] 0.4 mg capsule 0.4 mg PO DAILY Qty: 90 RF: 2 Tradjenta 5 mg Tablet 5 mg PO QAM RF: 0 multivitamin Tablet 1 tab PO QAM RF: 0 metformin 500 mg Tablet 500 mg PO BID RF: 0 acetaminophen 500 mg Capsule 500 - 1,000 mg PO BID RF: 0 cyanocobalamin (vitamin B-12) 2,000 mcg Tablet 2,000 mcg PO QAM RF: 0 cetirizine [Zyrtec] 10 mg Tablet 10 mg PO QAM RF: 0 aspirin 81 mg Tablet,Delayed Release (Dr/Ec) 81 mg PO QAM RF: 0 Discharge Orders: Discharge Order (Routine); Ordered 06/05/21 Ordered By: Yobany Walton/Other Patient Handouts: High Blood Sugar (Hyperglycemia), Hypoglycemia (Low Blood Sugar), Managing Type 2 Diabetes, Having a Ureteral Stent Admission Data Admit Date/Time: 06/02/21 22:03 Attending Provider: Umer Patrick Admit Provider: Jesus Mckeon Primary Care Provider: Nayan Shields Other Providers: Jesus Mckeon ; Umer Bashir Other Interventions: Discharge Summary Assessment (RN) Last Done: 06/05/21 13:42 Supervising Physician Co-Signing Physician Notes Attending attestation Pt seen and examined in concert with Dr. Trotter. In agreement with the documented findings as noted in the resident documentation with any exceptions or additions as noted here. Continued improvement in flank pain and no new fever, chills, sweats. On examination, S1/S2 nl RRR. CTAB. Abd NT/ND BS+ve Ureterolithiasis w/ hydronephrosis, overlying infection s/p stent - Cx from [place] [facility]-sensitive E. coli. Transition to PO Bactrim DS to complete course. Continue tamsulosin, encourage PO hydration BIANCA on CKD III in the setting of above - resolving, encourage PO hydration Thrombocytopenia - likely reactive, uptrended during admission, no significant pathology on initial evaluation. Else see resident documentation as noted. Total attending time spent on this patient's care on the day of discharge: 35 minutes.
== END 2021-06-05 15:00 | disposition home or self-care (01) | DRG 854 ==
LOC: SUATTDRO 21:26 → 3N 21:26